=== PATIENT | male | born 1985 | race Two or more races ===

== ENCOUNTER 2024-09-14 16:52 | Emergency (ER) | payer MEDICAID, SELFPAY ==
[2024-09-14 16:53] VITALS: BMI 26.9
[2024-09-14 17:59] VITALS: BP 146/79; PULSE 89; RESP 18; TEMP 37.9; O2SAT 97
--- NOTE | 2024-09-14 18:00 | PD.EDRME ---
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 A comprehensive ED assessment and evaluation of the patient, analysis of all test results, and completion of the medical decision making process will be conducted by additional ED providers. Chief Complaint: Chest Pain Time Seen by Provider: 09/14/24 17:12 Vital signs: Vital Signs Temperature 100.2 F 09/14/24 17:59 Pulse Rate 89 09/14/24 17:59 Respiratory Rate 18 09/14/24 17:59 Blood Pressure 146/79 H 09/14/24 17:59 Pulse Oximetry (%) 97 09/14/24 17:59 Oxygen Delivery Method Room Air 09/14/24 17:59 Vital signs reviewed by provider: Yes
--- NOTE | 2024-09-14 18:12 | EKG_ITS ---
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
--- NOTE | 2024-09-14 18:13 | XR_ITS ---
Examination: PA lateral chest 2 views Technique: Upright PA lateral chest 2 views Exam date and time: September 14, 2024 1821 hrs. Comparison April 10, 2024 Indications: Chest pain today. Findings: Mild enlargement cardiac contour Mild vascular congestion Mild opacity left base obscuring detail left hemidiaphragm Right lung clear Impression: Left base pneumonia
--- NOTE | 2024-09-14 18:13 | PD.EDRME ---
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 A comprehensive ED assessment and evaluation of the patient, analysis of all test results, and completion of the medical decision making process will be conducted by additional ED providers. Chief Complaint: Chest Pain Time Seen by Provider: 09/14/24 17:12 Vital signs: Vital Signs Temperature 100.2 F 09/14/24 17:59 Pulse Rate 89 09/14/24 17:59 Respiratory Rate 18 09/14/24 17:59 Blood Pressure 146/79 H 09/14/24 17:59 Pulse Oximetry (%) 97 09/14/24 17:59 Oxygen Delivery Method Room Air 09/14/24 17:59 RME Narrative: 09/14/24 16:52 39-year-old male with a history of type 2 diabetes on dialysis presents to the emergency room with a chief complaint of 8 out of 10 sternal chest pain x 2 days I have greeted and performed a focused initial assessment of this patient. A comprehensive ED assessment and evaluation of the patient, analysis of all test results, and completion of the medical decision making process will be conducted by additional ED providers.
[2024-09-14 19:31] LABS: Basophils # (Auto) 0.1 Thou/mm3 (0.0-0.2); Basophils % (Auto) 1 % (0-2.5); Eosinophils # (Auto) 0.1 Thou/mm3 (0.0-0.5); Eosinophils % (Auto) 1 % (0-10); Hemoglobin 11.3 g/dL (13.5-16.0); Immature Granulocytes % (Auto) 0 % (0-0); Immature Granulocytes Auto 0.04 Thou/mm3 (0.00-0.00); Lymphocytes # (Auto) 1.8 Thou/mm3 (1.0-4.8); Lymphocytes % (Auto) 17 % (10-50); Mean Corpuscular HGB Conc 34.2 g/dl (31.0-37.0); Mean Corpuscular Hemoglobin 28.3 pg (25.0-35.0); Mean Corpuscular Volume 83 fL (80-100); Monocytes % (Auto) 9 % (0-12); Neutrophils # (Auto) 7.8 Thou/mm3 (1.8-7.7); Neutrophils % (Auto) 72 % (37-80); Nucleated Red Blood Cell % 0 /100 WBC (0); Platelet Count 329 Thou/mm3 (140-440); RDW Standard Deviation 41.6 fL (35.1-43.9); Red Blood Count 3.99 Miln/mm3 (4.50-5.90); White Blood Count 10.8 Thou/mm3 (3.8-10.6)
[2024-09-14 19:33] LABS: Beta Hydroxybutyrate 0.6 mmol/L (<0.6)
[2024-09-14 19:53] LABS: Alanine Aminotransferase 8 U/L (10-49); Albumin, Serum 4.6 gm/dL (3.5-5.0); Albumin/Globulin Ratio 1.2 (1.2-2.2); Alkaline Phosphatase 119 U/L (46-116); Anion Gap 11 (7-16); Aspartate Amino Transferase 14 U/L (0-34); BUN/Creatinine Ratio 4 Ratio (12-20); Blood Urea Nitrogen 19 mg/dL (9-23); Calcium 9.5 mg/dL (8.3-10.6); Calcium (Corrected) 9.5 mg/dL (8.5-10.1); Carbon Dioxide 30.4 mMol/L (20.0-31.0); Chloride 95 mMol/L (98-107); Creatinine (Component) 4.9 mg/dL (0.6-1.3); Estimated Creatinine Clearance 18.4 mL/min (>60); Globulin 3.8 gm/dL (2.3-3.5); Glucose 196 mg/dL (74-106); Osmolality,Calculated 279 (275-295); Potassium 4.3 mMol/L (3.4-5.1); Sodium 136 mMol/L (136-145); Total Protein 8.4 gm/dL (5.7-8.2); Troponin I 0.021 ng/mL (0.0-0.045); eGFR 15 See Note
[2024-09-14] MEDS: MG HYD/AL HYD/SIME (Maalox Reg) SUSP 30 ML UDC PO (20:58)
[2024-09-14] MEDS: LIDOCAINE VISCOUS 2% 15 ML UDC PO (20:58)
[2024-09-14] MEDS: SUCRALFATE SUSP 1 GM/10 ML UDC PO (20:58)
--- NOTE | 2024-09-14 21:20 | PD.EDCHEST ---
ED Chest Pain RME/HPI General Chief Complaint: Chest Pain Stated Complaint: Chest pain, esophagus burning since yesterday Time Seen by Provider: 09/14/24 17:12 Arrival date/time: 09/14/24 16:52 RME / HPI RME / HPI narrative: 09/14/24 16:52 39-year-old male with a history of type 2 diabetes on dialysis presents to the emergency room with a chief complaint of 8 out of 10 sternal chest pain x 2 days I have greeted and performed a focused initial assessment of this patient. A comprehensive ED assessment and evaluation of the patient, analysis of all test results, and completion of the medical decision making process will be conducted by additional ED providers. DR BLANCHARD MAIN ED EVALUATION: 39 yo male patient c/o epigastric and substernal chest pain described as burning for 2 days. Did not try any medication. Has taken Tums occasionally in the past. Denies nausea, vomiting. No SOB. Related Data Home Medications ?Medication ?Instructions ?Recorded ?Confirmed insulin glargine 100 unit/mL (3 60 unit subcut QAM 08/12/23 04/15/24 mL) subcutaneous pen (Basaglar KwikPen U-100 Insulin) calcium acetate 667 mg tablet 667 mg PO TID 10/10/23 04/15/24 insulin glargine 100 unit/mL (3 40 unit subcut HS PRN Hyperglycemia 12/24/23 04/15/24 mL) subcutaneous pen (Basaglar KwikPen U-100 Insulin) labetalol 200 mg tablet 200 mg PO BID 12/24/23 04/15/24 nifedipine 30 mg tablet,extended 30 mg PO HS 12/24/23 04/15/24 release 24 hr vitamin B complex-vitamin C-folic 1 tab PO QDAY 12/24/23 04/15/24 acid 0.8 mg tablet (Yuliana-Ethel) Allergies Allergy/AdvReac Type Severity Reaction Status Date / Time No Known Allergies Allergy Verified 04/10/24 15:54 Review of Systems Review of Systems Systems Reviewed: All systems reviewed, normal except as documented ED Exam Narrative Physical exam: GENERAL APPEARANCE: alert and oriented x 4, well-developed, well-nourished, no acute distress HEENT: Normocephalic, atraumatic; pupils equal, round, reactive to light; EOMI; mucous membranes pink, moist; oropharynx clear NECK: Supple LUNGS: CTABL; no wheezes, no rales, no rhonchi HEART: Regular rate, regular rhythm; normal S1, S2; no murmurs ABDOMEN: non distended; normal BS; soft, no tenderness, no guarding, no rebound; no masses, no organomegaly, no hernia BACK: no CVA tenderness EXTREMITIES: atraumatic; no edema NEUROLOGIC: awake; alert and oriented x4; cranial nerves II-XII grossly intact; no focal sensory or motor deficits PSYCHIATRIC: appropriate mood and affect SKIN: warm, dry, normal color; no rashes Course Quality Measures none Orders Category Date Time Status EKG (ED ONLY) *Do not use* NOW Care 09/14/24 18:12 Completed EKG (ED Only) Stat Exams 09/14/24 18:12 Draft XR chest 2V Stat Exams 09/14/24 18:13 Taken Beta Hydroxybutyrate Stat Lab 09/14/24 19:01 Completed CBC Stat Lab 09/14/24 19:01 Completed CMP [Comprehensive Metabolic Panel] Stat Lab 09/14/24 19:01 Completed Troponin I Stat Lab 09/14/24 19:01 Completed Lidocaine 2% Viscous [Xylocaine 2% Viscous] Med 09/14/24 20:01 Discontinued 15 ml PO X1 ONE Sucralfate Susp [Carafate Susp] Med 09/14/24 20:01 Discontinued 1 gm PO X1 ONE mg Hyd/Al Hyd/Mirian Susp [Maalox Susp] Med 09/14/24 20:01 Discontinued 30 ml PO X1 ONE Vital Signs Vital signs: Vital Signs Temperature 100.2 F 09/14/24 17:59 Pulse Rate 89 09/14/24 17:59 Respiratory Rate 18 09/14/24 17:59 Blood Pressure 146/79 H 09/14/24 17:59 Pulse Oximetry (%) 97 09/14/24 17:59 Oxygen Delivery Method Room Air 09/14/24 17:59 Chest Pain Patient data External records reviewed:: [facility] previous records Clinical information provided by:: patient Social determinants that could affect healthcare access:: none Patient has the following chronic illnesses:: DM, ESRD on HD How is presenting disease/condition affected by chronic disease/condition?: uneffected by Evaluation data The following diagnostics were reviewed and interpreted by me:: lab results, radiology exam(s) and EKG tracing(s) Lab and/or radiology exams considered but not ordered:: none Interpretation Summary: elevated Cr consistent with ESRD. No hyperkalemia Medications / Prescriptions Medications or Prescriptions considered but not ordered:: considered prescription for omeprazole Medication administrations:: Medication Administration History Discontinued Medications Al Hydrox/Mg Hydrox/Simethicone (Mg Hyd/Al Hyd/Mirian (Maalox Reg) Susp 30 Ml Udc) 30 ml PO X1 ONE Stop: 09/14/24 20:02 Last Admin: 09/14/24 20:58 Dose: 30 ml Documented By: KARIS Lidocaine HCl (Lidocaine Viscous 2% 15 Ml Udc) 15 ml PO X1 ONE Stop: 09/14/24 20:02 Last Admin: 09/14/24 20:58 Dose: 15 ml Documented By: AC Sucralfate (Sucralfate Susp 1 Gm/10 Ml Udc) 1 gm PO X1 ONE Stop: 09/14/24 20:02 Last Admin: 09/14/24 20:58 Dose: 1 gm Documented By: KARIS as above Consultations Consultation(s) initiated? (list below): No Diagnosis Chest Pain Differential Diagnosis: pneumothorax, stable angina, unstable angina pectoris, atypical chest pain and other (GERD) Most likely diagnosis given after review of the tests above:: acid reflux Admission Indicated Admission indicated?: not indicated Admission Request Was there a request for admission?: No Disposition Plan Disposition Plan: Discharge Discharge Attestation Discharge Attestation: The patient and all family members were given an opportunity to ask questions and understood the discharge instructions. Discharge instructions specifically effects, indications for sooner follow up or return to the emergency department, and the expected course of current diagnosis. Patient condition: Stable Discharge Plan Plan Patient Disposition: HOME (Self Care) Prescriptions/Referrals Prescriptions/Med Rec: No Action insulin glargine [Basaglar KwikPen U-100 Insulin] 100 unit/mL (3 mL) insulin pen 60 unit SUBCUT QAM Patient Comments: INJECT 60 UNITS SUBCUTANEOUSLY TWICE A DAY Rx Instructions: per patient takes 30-50units BID depending on his sugar levels calcium acetate 667 mg Tablet 667 mg PO TID nifedipine 30 mg tablet extended release 24hr 30 mg PO HS Patient Comments: TAKE 2 TABLETS BY MOUTH EVERY DAY labetalol 200 mg tablet 200 mg PO BID Yuliana-Ethel 0.8 mg tablet 1 tab PO QDAY Patient Comments: TAKE 1 TABLET BY MOUTH EVERY DAY insulin glargine [Basaglar KwikPen U-100 Insulin] 100 unit/mL (3 mL) Insulin Pen 40 unit SUBCUT HS PRN (Reason: Hyperglycemia) Referrals: No Primary/Family,Physician [Primary Care Provider] - In 1 week Problem List Clinical Impression: Acid reflux Patient/Caregiver Discharge Instructions Education Materials: Tips to Control Acid Reflux Print Language: Chilean Stand Alone Forms: Zaira Award Info., Patient Portal Info Letter
== END 2024-09-14 21:59 | disposition home or self-care (01) ==
PROVIDERS: Physician Assistant; Emergency Provider Emergency Medicine
DX: K21.9 Gastro-esophageal reflux disease without esophagitis (principal); E11.22 Type 2 diabetes mellitus with diabetic chronic kidney disease; N18.6 End stage renal disease; Z99.2 Dependence on renal dialysis
CPT/HCPCS: 36415; 71046; 80053; 82010; 84484; 85025; 93005; 99283; J3490; A9270

== ENCOUNTER 2024-09-21 16:25 | Emergency (ER) | payer MEDICAID, SELFPAY ==
[2024-09-21] VITALS (7 sets, daily range): BP systolic 101–104; BP diastolic 63–66; PULSE 67–84; RESP 18; TEMP 36.3–39.3; O2SAT 95–99
--- NOTE | 2024-09-21 16:54 | XR_ITS ---
Examination: PA lateral chest 2 views Technique: Upright PA lateral chest 2 views Exam date and time: September 21, 2024 1635 hrs. Comparison September 14, 2024 Indications: Coughing fever shortness of breath beginning 3 days ago Findings: Normal heart size Lungs are clear. Osseous structures are intact Impression: No active disease
--- NOTE | 2024-09-21 16:55 | PD.EDRME ---
Rapid Medical Screening Exam [facility] Arrival date/time: 09/21/24 16:25 39-year-old male with a history of uncontrolled type 2 diabetes, hypertension, presents to the emergency room with a chief complaint of fevers, a diabetic ulcer to the bottom of his left foot x 1 week, shortness of breath, coughing x 3 days I have greeted and performed a focused initial assessment of this patient. A comprehensive ED assessment and evaluation of the patient, analysis of all test results, and completion of the medical decision making process will be conducted by additional ED providers. Chief Complaint: Shortness of Breath/Dyspnea Time Seen by Provider: 09/21/24 16:37 Vital signs: Vital Signs Temperature 102.7 F H 09/21/24 16:44 Pulse Rate 84 09/21/24 16:44 Respiratory Rate 18 09/21/24 16:44 Blood Pressure 101/64 09/21/24 16:44 Pulse Oximetry (%) 95 09/21/24 16:44 Oxygen Delivery Method Room Air 09/21/24 16:44 Vital signs reviewed by provider: Yes
[2024-09-21] MEDS: ACETAMINOPHEN 500 MG TABLET 1000 MG PO (17:26)
[2024-09-21] MEDS: IBUPROFEN TAB 600 MG TABLET PO (17:27)
[2024-09-21 17:50] LABS: Lactate (Lactic Acid) 1.6 mMol/L (0.4-2.0)
[2024-09-21 17:53] LABS: Basophils # (Auto) 0.1 Thou/mm3 (0.0-0.2); Basophils % (Auto) 1 % (0-2.5); Eosinophils # (Auto) 0.2 Thou/mm3 (0.0-0.5); Eosinophils % (Auto) 2 % (0-10); Hematocrit 32.1 % (41.0-53.0); Hemoglobin 10.9 g/dL (13.5-16.0); Immature Granulocytes % (Auto) 0 % (0-0); Immature Granulocytes Auto 0.04 Thou/mm3 (0.00-0.00); Lymphocytes # (Auto) 1.2 Thou/mm3 (1.0-4.8); Lymphocytes % (Auto) 9 % (10-50); Mean Corpuscular Hemoglobin 27.7 pg (25.0-35.0); Mean Corpuscular Volume 82 fL (80-100); Monocytes # (Auto) 1.2 Thou/mm3 (0.0-0.8); Monocytes % (Auto) 8 % (0-12); Neutrophils # (Auto) 11.3 Thou/mm3 (1.8-7.7); Neutrophils % (Auto) 80 % (37-80); Nucleated Red Blood Cell % 0 /100 WBC (0); Platelet Count 413 Thou/mm3 (140-440); Red Blood Count 3.93 Miln/mm3 (4.50-5.90); White Blood Count 14.1 Thou/mm3 (3.8-10.6)
[2024-09-21 18:50] LABS: Alanine Aminotransferase 8 U/L (10-49); Albumin, Serum 4.6 gm/dL (3.5-5.0); Albumin/Globulin Ratio 1.1 (1.2-2.2); Alkaline Phosphatase 123 U/L (46-116); Anion Gap 14 (7-16); Aspartate Amino Transferase 14 U/L (0-34); BUN/Creatinine Ratio 4 Ratio (12-20); Bilirubin,Total 1.2 mg/dL (0.3-1.2); Blood Urea Nitrogen 19 mg/dL (9-23); Calcium 9.5 mg/dL (8.3-10.6); Calcium (Corrected) 9.5 mg/dL (8.5-10.1); Carbon Dioxide 29.3 mMol/L (20.0-31.0); Chloride 90 mMol/L (98-107); Creatinine (Component) 5.1 mg/dL (0.6-1.3); Globulin 4.1 gm/dL (2.3-3.5); Glucose 204 mg/dL (74-106); Osmolality,Calculated 274 (275-295); Potassium 3.7 mMol/L (3.4-5.1); Procalcitonin 0.55 ng/ml (0.0-0.49); Sodium 133 mMol/L (136-145); Total Protein 8.7 gm/dL (5.7-8.2); eGFR 14 See Note
[2024-09-22 04:26] VITALS: BP 151/82; PULSE 75; RESP 13; TEMP 36.8; O2SAT 100
--- NOTE | 2024-09-22 04:33 | PD.EDSOB ---
ED SOB =RME/HPI General Chief Complaint: Shortness of Breath/Dyspnea Stated Complaint: CHEST HURTING UP TO NECK W/ BREATHING, COUGH Time Seen by Provider: 09/21/24 16:37 Arrival date/time: 09/21/24 16:25 RME / HPI RME / HPI Narrative: 09/21/24 16:25 39-year-old male with a history of uncontrolled type 2 diabetes, hypertension, presents to the emergency room with a chief complaint of fevers, a diabetic ulcer to the bottom of his left foot x 1 week, shortness of breath, coughing x 3 days I have greeted and performed a focused initial assessment of this patient. A comprehensive ED assessment and evaluation of the patient, analysis of all test results, and completion of the medical decision making process will be conducted by additional ED providers. Dr. Rodriges?s Main ED Evaluation: 39yo male with a history of DM, HTN, renal disease presents to the ED for complaints of cough and shortness of breath. Patient states he started developing a wound to his left foot 1 week ago, and another to his right ankle yesterday. He states he started having cold sweats over the last 2 nights, along with a cough, shortness of breath, chest heaviness, and generalized weakness. He denies any N/V/D or any other associated symptoms. No known allergies. Related Data Home Medications ?Medication ?Instructions ?Recorded ?Confirmed insulin glargine 100 unit/mL (3 60 unit subcut QAM 08/12/23 04/15/24 mL) subcutaneous pen (Basaglar KwikPen U-100 Insulin) calcium acetate 667 mg tablet 667 mg PO TID 10/10/23 04/15/24 insulin glargine 100 unit/mL (3 40 unit subcut HS PRN Hyperglycemia 12/24/23 04/15/24 mL) subcutaneous pen (Basaglar KwikPen U-100 Insulin) labetalol 200 mg tablet 200 mg PO BID 12/24/23 04/15/24 nifedipine 30 mg tablet,extended 30 mg PO HS 12/24/23 04/15/24 release 24 hr vitamin B complex-vitamin C-folic 1 tab PO QDAY 12/24/23 04/15/24 acid 0.8 mg tablet (Yuliana-Ethel) Allergies Allergy/AdvReac Type Severity Reaction Status Date / Time No Known Allergies Allergy Verified 09/21/24 16:29 Review of Systems Review of Systems Systems Reviewed: All systems reviewed, normal except as documented Past Medical History Past Medical History NEUROLOGIC: Negative Neurological Disorders or Seizures CARDIAC: Positive Hypertension; Negative Cardiac Disorders or Congestive Heart Failure RESPIRATORY: Negative Chronic Obstructive Pulmonary Disease (COPD) or Asthma GASTROINTESTINAL: Positive Hiatal Hernia and Gastroesophageal Reflux Disease; Negative Gastrointestinal Disorders, Hepatitis, Gall Bladder Disease, Gastrointestinal Bleed or Esophageal Varices GENITOURINARY: Positive Renal Disease and Dialysis MUSCULOSKELETAL: Negative Musculoskeletal Disorders or Fractures ENT: Positive Blind; Negative Cataracts, Ear Infection or Deafness ENDOCRINE: Positive Endocrine Disorders, Diabetes Mellitus Type 2 and Hyperthyroidism; Negative Diabetes Mellitus Type 1 HEMATOLOGIC: Negative Blood Disorders or Sickle Cell Disease PSYCHO/SOCIAL: Negative Schizophrenia OTHER HISTORY: Positive Falls, Blood Transfusions, MRSA and Chicken Pox; Negative Autoimmune Disease, Blood Transfusion Reaction, Anesthesia Reactions or Cancer Family History FAMILY HISTORY: Negative Family Cardiac Disorders or Family Anesthesia Reaction Surgical History SURGICAL: Positive Eye Surgery and Abdominal Surgery; Negative Cardiac Surgery, Nephrectomy or Joint Replacement Social History SMOKING STATUS: Never smoker SUBSTANCE USE: marijuana ED Exam Narrative Physical exam: GENERAL APPEARANCE: alert and oriented x 4, well-developed, well-nourished, no acute distress VITALS: All vitals were reviewed and the pulse ox is 100% on room air, which is normal according to my interpretation. HEENT: Normocephalic, atraumatic; pupils equal, round, reactive to light; EOMI; mucous membranes pink, moist; oropharynx clear NECK: Supple LUNGS: CTABL; no wheezes, no rales, no rhonchi HEART: Regular rate, regular rhythm; normal S1, S2; no murmurs ABDOMEN: non distended; normal BS; soft, no tenderness, no guarding, no rebound; no masses, no organomegaly, no hernia BACK: no CVA tenderness EXTREMITIES: atraumatic; no edema NEUROLOGIC: awake; alert and oriented x4; cranial nerves II-XII grossly intact; no focal sensory or motor deficits PSYCHIATRIC: appropriate mood and affect SKIN: warm, dry, normal color; 3cm denuded blister to the anterior right steward without any surrounding erythema, swelling or discharge; left open wound to the distal sole of the foot that is granulating well without any surrounding erythema, swelling or discharge Course Course Course Narrative: CXR is ordered for determining the etiology of fever. Quality Measures none Orders Category Date Time Status Bedside COVID-19 Antigen Test NOW Care 09/21/24 16:54 Active Bedside Influenza A&B Antigen Test NOW Care 09/21/24 16:54 Completed XR chest 2V Stat Exams 09/21/24 16:54 Completed Blood Culture (Lab) Stat Lab 09/21/24 17:27 Received CBC Stat Lab 09/21/24 17:27 Completed CMP [Comprehensive Metabolic Panel] Stat Lab 09/21/24 17:27 Completed Lactate (Lactic Acid) Stat Lab 09/21/24 17:27 Completed Procalcitonin Stat Lab 09/21/24 17:27 Completed UA [Urinalysis] Stat Lab 09/21/24 16:54 Ordered Urine Culture Stat Lab 09/21/24 16:54 Ordered Acetaminophen Tab [Tylenol ES Tab] Med 09/21/24 16:55 Discontinued 1,000 mg PO X1 ONE Ibuprofen Tab [Motrin Tab] Med 09/21/24 16:55 Discontinued 600 mg PO X1 ONE Vital Signs Vital signs: Vital Signs Temperature 102.7 F H 09/21/24 16:44 Pulse Rate 84 09/21/24 16:44 Respiratory Rate 18 09/21/24 16:44 Blood Pressure 101/64 09/21/24 16:44 Pulse Oximetry (%) 95 09/21/24 16:44 Oxygen Delivery Method Room Air 09/21/24 16:44 Shortness of Breath / Dyspnea MDM Narrative MDM Narrative:: Scribe Attestation: 09/22/24 - Gabby Mathew am scribing for and in the presence of Dr. Rodriges. Patient data External records reviewed:: [facility] previous records (Per chart review, patient was seen here on 09/14/24 for acid reflux.) Clinical information provided by:: patient Social determinants that could affect healthcare access:: none Patient has the following chronic illnesses:: HTN, DM, renal disease How is presenting disease/condition affected by chronic disease/condition?: uneffected by Evaluation data The following diagnostics were reviewed and interpreted by me:: lab results and radiology exam(s) Lab and/or radiology exams considered but not ordered:: none Interpretation Summary: WBC count is elevated at 14.1, HnH is 10.9/32.1, Platelets are normal, Sodium is 133, Creatinine is 5.1 (which is chronic), Glucose is 204, Lactic Acid is normal, Procalcitonin is slightly elevated at 0.55, Bedside COVID and Influenza are negative, according to my interpretation. ------ [place] [facility] Report Signed Patient: NORM BRUNER. Record#: [id number] Birthdate: 1985 Age/Sex: 39 / M [facility] Att[facility] Dr: Ordering Physician: Vladimir Morgan Date of Service: 09/21/24 Procedure(s): XR chest 2V Accession Number(s): [id number] cc: Vladimir Morgan; Marty Nielson MD; NO PRIMARY/FAMILY,PHYSICIAN~ Examination: PA lateral chest 2 views Technique: Upright PA lateral chest 2 views Exam date and time: September 21, 2024 1635 hrs. Comparison September 14, 2024 Indications: Coughing fever shortness of breath beginning 3 days ago Findings: Normal heart size Lungs are clear. Osseous structures are intact Impression: No active disease Dictated By: Marty Nielson MD Signed By: <Electronically signed by Marty Nielson MD in OV> 09/21/24 1807 Medications / Prescriptions Medications or Prescriptions considered but not ordered:: none Medication administrations:: Medication Administration History Discontinued Medications Acetaminophen (Acetaminophen 500 Mg Tablet) 1,000 mg PO X1 ONE Stop: 09/21/24 16:56 Last Admin: 09/21/24 17:26 Dose: 1,000 mg Documented By: APPLE Ibuprofen (Ibuprofen Tab 600 Mg Tablet) 600 mg PO X1 ONE Stop: 09/21/24 16:56 Last Admin: 09/21/24 17:27 Dose: 600 mg Documented By: APPLE see above Consultations Consultation(s) initiated? (list below): No Diagnosis Shortness of Breath Differential Diagnosis: community acquired pneumonia and other (COVID, Influenza, URI, viral syndrome, diabetic foot ulcer, osteomyelitis) Most likely diagnosis given after review of the tests above:: see clinical impression below Admission Indicated Admission indicated?: not indicated Admission Request Was there a request for admission?: No Disposition Plan Disposition Plan: Discharge Discharge Attestation Discharge Attestation: The patient and all family members were given an opportunity to ask questions and understood the discharge instructions. Discharge instructions specifically effects, indications for sooner follow up or return to the emergency department, and the expected course of current diagnosis. Patient condition: Stable Discharge Plan Plan Patient Disposition: HOME (Self Care) Disposition Comment: Stable for discharge home Patient condition on transfer: Stable Prescriptions/Referrals Prescriptions/Med Rec: No Action insulin glargine [Basaglar KwikPen U-100 Insulin] 100 unit/mL (3 mL) insulin pen 60 unit SUBCUT QAM Patient Comments: INJECT 60 UNITS SUBCUTANEOUSLY TWICE A DAY Rx Instructions: per patient takes 30-50units BID depending on his sugar levels calcium acetate 667 mg Tablet 667 mg PO TID nifedipine 30 mg tablet extended release 24hr 30 mg PO HS Patient Comments: TAKE 2 TABLETS BY MOUTH EVERY DAY labetalol 200 mg tablet 200 mg PO BID Yuliana-Ethel 0.8 mg tablet 1 tab PO QDAY Patient Comments: TAKE 1 TABLET BY MOUTH EVERY DAY insulin glargine [Basaglar KwikPen U-100 Insulin] 100 unit/mL (3 mL) Insulin Pen 40 unit SUBCUT HS PRN (Reason: Hyperglycemia) [facility] - In 1 week Problem List Clinical Impression: Upper respiratory infection, viral, Fever Patient/Caregiver Discharge Instructions Discharge Activity: activity as tolerated Education Materials: ED URI, Viral, No Abx (Adult) Additional Instructions: Please return to the emergency department if you have any worsening or any further medical problems and we will help you. Otherwise you should follow-up with your primary care doctor or [facility] within the next several days. Be sure to change the bandages on your foot wounds at least once a day. Have called in a prescription for mupirocin antibiotic ointment which is waiting for you at your pharmacy. Please use this ointment 3 times per day on each of these wounds. You should call the wound center and make an appointment. You should be seen within the next several days for these foot wounds Print Language: Kiswahili Stand Alone Forms: Zaira Award Info., Patient Portal Info Letter
== END 2024-09-22 05:18 | disposition home or self-care (01) ==
PROVIDERS: Nurse Practitioner Family; Emergency Provider Emergency Medicine
DX: J06.9 Acute upper respiratory infection, unspecified (principal)
CPT/HCPCS: 36415; 71046; 80053; 81001; 83605; 84145; 85025; 87040; 87086; 87400; 87811; 99283; A9270

== ENCOUNTER 2025-02-17 02:05 | Emergency (ER) | payer MEDICAID, SELFPAY ==
[2025-02-17] VITALS (8 sets, daily range): BP systolic 154–193; BP diastolic 81–98; PULSE 67–79; RESP 15–18; TEMP 36.6–37.1; O2SAT 97–100; BMI 28.4
--- NOTE | 2025-02-17 02:16 | XR_ITS ---
Examination: AP chest single view Technique one AP portable upright chest single view Date and time: February 17, 2025 0239 hours Comparison September 21, 2024 INDICATIONS: Shortness of breath today. FINDINGS: Minimal opacity left base Mild prominence cardiac contour Right lung clear Intact osseous structures IMPRESSION: Suspicious for early pneumonia left base
--- NOTE | 2025-02-17 02:27 | PD.EDADULT ---
ED General RME/HPI General Chief complaint: Chest Pain Stated complaint: CHEST PAIN Time Seen by Provider: 02/17/25 02:15 Arrival date/time: 02/17/25 02:05 RME / HPI RME / HPI narrative: 39-year-old male with past medical history of diabetes, ESRD, near blindness, and hypertension comes into the ED brought in by ambulance due to chest pain today. Patient states that after hemodialysis he started having this pressure-like chest pain which started in his epigastric region and radiated to his substernal chest and he felt all his body was numb. Patient stated that he was also short of breath at this time and that he had been having high blood pressure for the past week as well. Stated that his blood pressure in the hemodialysis center was around 200s. Patient states that for the past few days he has also had this on and off chest pain and it can last for minutes to the whole day and rest does not make it better and exercise does not worsen it. Patient did get Nitropaste, sublingual nitro, and aspirin en route by EMS and he stated that he had relief of his symptoms. Patient also stated that today when he started having the chest pain he was passing out and waking up shortly after. Also felt dizzy, but denied having any abdominal pain, diarrhea, or headaches. Patient does not make urine. Otherwise no other complaints at this time. Denies any smoking, drugs, alcohol Related Data Home Medications ?Medication ?Instructions ?Recorded ?Confirmed insulin glargine 100 unit/mL (3 60 unit subcut QAM 08/12/23 04/15/24 mL) subcutaneous pen (Basaglar KwikPen U-100 Insulin) calcium acetate 667 mg tablet 667 mg PO TID 10/10/23 04/15/24 insulin glargine 100 unit/mL (3 40 unit subcut HS PRN Hyperglycemia 12/24/23 04/15/24 mL) subcutaneous pen (Basaglar KwikPen U-100 Insulin) labetalol 200 mg tablet 200 mg PO BID 12/24/23 04/15/24 nifedipine 30 mg tablet,extended 30 mg PO HS 12/24/23 04/15/24 release 24 hr vitamin B complex-vitamin C-folic 1 tab PO QDAY 12/24/23 04/15/24 acid 0.8 mg tablet (Yuliana-Ethel) Previous Rx's ?Medication ?Instructions ?Recorded mupirocin 2 % topical ointment 1 applic topical BID On the foot 09/22/24 and ankle wound #22 grams clonidine HCl 0.2 mg tablet 0.2 mg PO BID PRN Blood pressure 02/17/25 above 170/100 #10 tabs Allergies Allergy/AdvReac Type Severity Reaction Status Date / Time No Known Allergies Allergy Verified 09/21/24 16:29 Review of Systems Review of Systems Systems Reviewed: All systems reviewed, normal except as documented Past Medical History Past Medical History NEUROLOGIC: Negative Neurological Disorders or Seizures CARDIAC: Positive Hypertension; Negative Cardiac Disorders or Congestive Heart Failure RESPIRATORY: Negative Chronic Obstructive Pulmonary Disease (COPD) or Asthma GASTROINTESTINAL: Positive Hiatal Hernia and Gastroesophageal Reflux Disease; Negative Gastrointestinal Disorders, Hepatitis, Gall Bladder Disease, Gastrointestinal Bleed or Esophageal Varices GENITOURINARY: Positive Renal Disease and Dialysis MUSCULOSKELETAL: Negative Musculoskeletal Disorders or Fractures ENT: Positive Blind; Negative Cataracts, Ear Infection or Deafness ENDOCRINE: Positive Endocrine Disorders, Diabetes Mellitus Type 2 and Hyperthyroidism; Negative Diabetes Mellitus Type 1 HEMATOLOGIC: Negative Blood Disorders or Sickle Cell Disease PSYCHO/SOCIAL: Negative Schizophrenia OTHER HISTORY: Positive Falls, Blood Transfusions, MRSA and Chicken Pox; Negative Autoimmune Disease, Blood Transfusion Reaction, Anesthesia Reactions or Cancer Family History FAMILY HISTORY: Negative Family Cardiac Disorders or Family Anesthesia Reaction Surgical History SURGICAL: Positive Eye Surgery and Abdominal Surgery; Negative Cardiac Surgery, Nephrectomy or Joint Replacement Social History SMOKING STATUS: Never smoker SUBSTANCE USE: marijuana ED Exam Narrative Physical exam: Gen: A&O X 3, NAD HEENT: NCAT, EOMI, Pupils reactive MARCIANO, not icteric. External ears normal. No rhinorrhea. Moist mucous membranes. See shadows from both eyes. Neck: Supple, full range of motion, no observable masses, No meningeal sign. Lungs: No Respiratory distress, clear bilateral. CV: RRR, no murmurs. Abdomen: Soft, nondistended, nontender, no rebound tenderness. MSK: No joint swelling, no redness, peripheral pulses presents, lumbar with no edema. Skin: No rashes, petechiae, lesions.. Neuro: No focal neurological deficits appreciated, sensory and motor intact. Psych: Cooperative, appropriate mood and effect. 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 START 00 Care 02/17/25 02:16 Active Continuous Pulse Oximetry NOW Care 02/17/25 02:16 Completed CXRP [XR chest 1V portable] Stat Exams 02/17/25 02:16 Taken Beta Hydroxybutyrate Stat Lab 02/17/25 02:23 Completed CBC [CBC] Stat Lab 02/17/25 02:23 Completed CMP [Comprehensive Metabolic Panel] Stat Lab 02/17/25 02:23 Completed Hemoglobin and Hematocrit Stat Lab 02/17/25 03:50 Completed Lactic Acid [Lactate (Lactic Acid)] Stat Lab 02/17/25 02:23 Completed Magnesium Stat Lab 02/17/25 02:23 Completed Procalcitonin Stat Lab 02/17/25 02:23 Completed Troponin I Stat Lab 02/17/25 02:23 Completed INSULIN LISPRO (AdmeLOG) [HumaLOG] Med 02/17/25 03:50 Discontinued 3 unit SC X1 ONE Insulin Regular Med 02/17/25 02:16 Discontinued 5 unit IV X1 ONE hydrALAZINE INJ [Apresoline Inj] Med 02/17/25 02:40 Discontinued 10 mg IVP X1 ONE Vital Signs Vital signs: Vital Signs Temperature 97.8 F 02/17/25 02:14 Pulse Rate 68 02/17/25 02:14 Respiratory Rate 17 02/17/25 02:14 Blood Pressure 182/98 H 02/17/25 02:14 Pulse Oximetry (%) 97 02/17/25 02:14 Oxygen Delivery Method Room Air 02/17/25 02:14 Discharge Plan Plan Patient Disposition: HOME (Self Care) Prescriptions/Referrals Prescriptions/Med Rec: New clonidine HCl 0.2 mg tablet 0.2 mg PO BID PRN (Reason: Blood pressure above 170/100) Qty: 10 0RF Rx Instructions: Take 1 tablet if blood pressures still elevated in the 170s/100s after you have taken your antihypertensive medications. No Action insulin glargine [Basaglar KwikPen U-100 Insulin] 100 unit/mL (3 mL) insulin pen 60 unit SUBCUT QAM Patient Comments: INJECT 60 UNITS SUBCUTANEOUSLY TWICE A DAY Rx Instructions: per patient takes 30-50units BID depending on his sugar levels calcium acetate 667 mg Tablet 667 mg PO TID nifedipine 30 mg tablet extended release 24hr 30 mg PO HS Patient Comments: TAKE 2 TABLETS BY MOUTH EVERY DAY labetalol 200 mg tablet 200 mg PO BID Yuliana-Ethel 0.8 mg tablet 1 tab PO QDAY Patient Comments: TAKE 1 TABLET BY MOUTH EVERY DAY insulin glargine [Basaglar KwikPen U-100 Insulin] 100 unit/mL (3 mL) Insulin Pen 40 unit SUBCUT HS PRN (Reason: Hyperglycemia) mupirocin 2 % ointment 1 applic topical BID Qty: 22 0RF Referrals: Emeterio Gomez MD [Primary Care Provider] - In 1 week Problem List Clinical Impression: Atypical chest pain Patient/Caregiver Discharge Instructions Other Activity Instructions:: Follow-up primary care physician within 2 to 3 days Prescribe clonidine 0.2 mg twice daily as needed if blood pressure above 170/100 after he had taken your antihypertensive medications Would recommend outpatient follow-up with printed circuit board assembler Would recommend outpatient workup for anemia Come back to the ER if symptoms persist or worsen. Education Materials: ED Chest Pain, Noncardiac Print Language: Ukrainian Stand Alone Forms: Zaira Award Info., Patient Portal Info Letter MDM Narrative MDM hospital course: Patient was seen and assessed by myself upon arrival to the room. Diagnostic labs and imaging were ordered. EKG did not show any acute ST changes. Patient's blood sugar on arrival was in the 500s therefore gave 5 insulin regular IV x 1. And patient's blood pressure was elevated therefore gave hydralazine 10 mg IV x 1 Patient's hemoglobin was 7.4 as compared to 10.9 around 5 months ago. This could be likely due to ESRD. Patient does not have any active signs of bleeding. Otherwise patient is lactic acid was negative and troponins were also negative. Recheck blood sugars and patient's blood sugars were 357, ordered 3 more insulin lispro SC x 1. On repeat blood glucose check blood glucose was 258. At this time patient is stable enough to be discharged home. Will give clonidine 0.2 mg tablets twice daily as needed if blood pressure above 170/100 after he takes his blood pressure medications. With close follow-up with his primary care physician. Case disclosed with Attending Dr. Eugene Bolivar PGY2 Disclaimer: Even though this this note was dictated by speech recognition and even though it was carefully revised there may still be minor errors in special education classroom aide due to voice recognition software. Medication Administration(s) Medication Administration History Discontinued Medications Hydralazine HCl (Hydralazine Inj 20 Mg/Ml Vial) 10 mg IVP X1 ONE Stop: 02/17/25 02:41 Last Admin: 02/17/25 02:50 Dose: 10 mg Documented By: NENA Insulin Human Lispro (Insulin Lispro (Admelog) 1 Unit/0.01 Ml Unit) 3 unit SC X1 ONE Stop: 02/17/25 03:51 Last Admin: 02/17/25 03:56 Dose: 3 unit Documented By: NENA Co-signed By: DL Insulin Human Regular (Insulin Hum Regular 1 Unit/0.01 Ml (Per Unit)) 5 unit IV X1 ONE Stop: 02/17/25 02:17 Last Admin: 02/17/25 02:48 Dose: 5 unit Documented By: NENA Co-signed By: DL
[2025-02-17 02:33] LABS: Lactate (Lactic Acid) 1.2 mMol/L (0.4-2.0)
[2025-02-17 02:41] LABS: Beta Hydroxybutyrate 0.0 mmol/L (<0.6)
[2025-02-17] MEDS: INSULIN HUM REGULAR 1 UNIT/0.01 ML (PER UNIT) 5 UNIT IV (02:48)
[2025-02-17 02:50] LABS: Basophils # (Auto) 0.1 Thou/mm3 (0.0-0.2); Basophils % (Auto) 1 % (0-2.5); Eosinophils # (Auto) 0.1 Thou/mm3 (0.0-0.5); Eosinophils % (Auto) 2 % (0-10); Hematocrit 22.9 % (41.0-53.0); Immature Granulocytes Auto 0.01 Thou/mm3 (0.00-0.00); Lymphocytes # (Auto) 2.1 Thou/mm3 (1.0-4.8); Lymphocytes % (Auto) 42 % (10-50); Mean Corpuscular HGB Conc 32.3 g/dl (31.0-37.0); Mean Corpuscular Hemoglobin 27.1 pg (25.0-35.0); Mean Corpuscular Volume 84 fL (80-100); Monocytes # (Auto) 0.5 Thou/mm3 (0.0-0.8); Monocytes % (Auto) 10 % (0-12); Neutrophils # (Auto) 2.2 Thou/mm3 (1.8-7.7); Neutrophils % (Auto) 45 % (37-80); Nucleated Red Blood Cell # 0.00 Thou/mm3 (0.00-0.00); Nucleated Red Blood Cell % 0 /100 WBC (0); Platelet Count 131 Thou/mm3 (140-440); RDW Standard Deviation 42.2 fL (35.1-43.9); Red Blood Count 2.73 Miln/mm3 (4.50-5.90); White Blood Count 4.9 Thou/mm3 (3.8-10.6)
[2025-02-17] MEDS: hydrALAZINE INJ 20 MG/ML VIAL 10 MG IVP (02:50)
[2025-02-17 03:00] LABS: Hemoglobin 7.4 g/dL (13.5-16.0)
[2025-02-17 03:15] LABS: Alanine Aminotransferase 8 U/L (10-49); Albumin, Serum 3.8 gm/dL (3.5-5.0); Albumin/Globulin Ratio 1.4 (1.2-2.2); Alkaline Phosphatase 186 U/L (46-116); Anion Gap 9 (7-16); Aspartate Amino Transferase 11 U/L (0-34); BUN/Creatinine Ratio 6 Ratio (12-20); Bilirubin,Total 0.4 mg/dL (0.3-1.2); Blood Urea Nitrogen 39 mg/dL (9-23); Calcium 8.0 mg/dL (8.3-10.6); Calcium (Corrected) 8.2 mg/dL (8.5-10.1); Carbon Dioxide 30.1 mMol/L (20.0-31.0); Chloride 92 mMol/L (98-107); Creatinine (Component) 6.3 mg/dL (0.6-1.3); Estimated Creatinine Clearance 15.8 mL/min (>60); Globulin 2.7 gm/dL (2.3-3.5); Magnesium 1.8 mg/dL (1.6-2.6); Osmolality,Calculated 300 (275-295); Potassium 4.4 mMol/L (3.4-5.1); Procalcitonin 0.23 ng/ml (0.0-0.49); Sodium 131 mMol/L (136-145); Total Protein 6.5 gm/dL (5.7-8.2); Troponin I < 0.020 ng/mL (0.0-0.045); eGFR 11 See Note
[2025-02-17 03:34] LABS: Glucose 602 mg/dL (74-106)
[2025-02-17] MEDS: INSULIN LISPRO (AdmeLOG) 1 UNIT/0.01 ML UNIT 3 UNIT SC (03:56)
[2025-02-17 03:58] LABS: Hematocrit 23.1 % (41.0-53.0)
[2025-02-17 04:06] LABS: Hemoglobin 7.7 g/dL (13.5-16.0)
== END 2025-02-17 05:21 | disposition home or self-care (01) ==
PROVIDERS: PCP Internal Medicine
DX: R07.89 Other chest pain (principal); E11.22 Type 2 diabetes mellitus with diabetic chronic kidney disease; I12.0 Hypertensive chronic kidney disease with stage 5 chronic kidney disease or end stage renal disease; N18.6 End stage renal disease
CPT/HCPCS: 36415; 71045; 80053; 80307; 81001; 82010; 83605; 83735; 84145; 84484; 85014; 85018; 85025; 96374; 99284; J0360; J1815

== ENCOUNTER 2025-02-18 00:10 | Emergency (ER) | payer MEDICAID, SELFPAY ==
[2025-02-18 00:12] VITALS: BMI 28.4
[2025-02-18 00:49] VITALS: BP 185/95; PULSE 73; RESP 17; TEMP 36.7; O2SAT 99
--- NOTE | 2025-02-18 01:05 | PD.EDADULT ---
ED General RME/HPI General Chief complaint: General Adult/Misc Complain Stated complaint: HIGH BP, HEADACHE,CP Arrival date/time: 02/18/25 00:10 RME / HPI RME / HPI narrative: 39-year-old male with past medical history of diabetes, ESRD, near blindness, and hypertension comes into the ED today with complaints of high blood pressure at home. Patient states that his blood pressure was 200/100 and that he was unable to get the medication that he was prescribed yesterday when he came to the ED due to similar symptoms. He stated that he also has some mild chest pain and headache, which have since gotten a lot better. Patient is supposed to get hemodialysis later this morning. Patient denies having any abdominal pain, nausea, vomiting, diarrhea, or feelings of dizziness. Related Data Home Medications ?Medication ?Instructions ?Recorded ?Confirmed insulin glargine 100 unit/mL (3 60 unit subcut QAM 08/12/23 04/15/24 mL) subcutaneous pen (Basaglar KwikPen U-100 Insulin) calcium acetate 667 mg tablet 667 mg PO TID 10/10/23 04/15/24 insulin glargine 100 unit/mL (3 40 unit subcut HS PRN Hyperglycemia 12/24/23 04/15/24 mL) subcutaneous pen (Basaglar KwikPen U-100 Insulin) labetalol 200 mg tablet 200 mg PO BID 12/24/23 04/15/24 nifedipine 30 mg tablet,extended 30 mg PO HS 12/24/23 04/15/24 release 24 hr vitamin B complex-vitamin C-folic 1 tab PO QDAY 12/24/23 04/15/24 acid 0.8 mg tablet (Yuliana-Ethel) Previous Rx's ?Medication ?Instructions ?Recorded mupirocin 2 % topical ointment 1 applic topical BID On the foot 09/22/24 and ankle wound #22 grams clonidine HCl 0.2 mg tablet 0.2 mg PO BID PRN Blood pressure 02/17/25 above 170/100 #10 tabs Allergies Allergy/AdvReac Type Severity Reaction Status Date / Time No Known Allergies Allergy Verified 02/18/25 00:11 Review of Systems Review of Systems Systems Reviewed: All systems reviewed, normal except as documented Past Medical History Past Medical History NEUROLOGIC: Negative Neurological Disorders or Seizures CARDIAC: Positive Hypertension; Negative Cardiac Disorders or Congestive Heart Failure RESPIRATORY: Negative Chronic Obstructive Pulmonary Disease (COPD) or Asthma GASTROINTESTINAL: Positive Hiatal Hernia and Gastroesophageal Reflux Disease; Negative Gastrointestinal Disorders, Hepatitis, Gall Bladder Disease, Gastrointestinal Bleed or Esophageal Varices GENITOURINARY: Positive Renal Disease and Dialysis MUSCULOSKELETAL: Negative Musculoskeletal Disorders or Fractures ENT: Positive Blind; Negative Cataracts, Ear Infection or Deafness ENDOCRINE: Positive Endocrine Disorders, Diabetes Mellitus Type 2 and Hyperthyroidism; Negative Diabetes Mellitus Type 1 HEMATOLOGIC: Negative Blood Disorders or Sickle Cell Disease PSYCHO/SOCIAL: Negative Schizophrenia OTHER HISTORY: Positive Falls, Blood Transfusions, MRSA and Chicken Pox; Negative Autoimmune Disease, Blood Transfusion Reaction, Anesthesia Reactions or Cancer Family History FAMILY HISTORY: Negative Family Cardiac Disorders or Family Anesthesia Reaction Surgical History SURGICAL: Positive Eye Surgery and Abdominal Surgery; Negative Cardiac Surgery, Nephrectomy or Joint Replacement Social History SMOKING STATUS: Never smoker SUBSTANCE USE: marijuana ED Exam Narrative Physical exam: Gen: A&O X 3, NAD HEENT: NCAT, EOMI, Pupils reactive MARCIANO, not icteric. External ears normal. No rhinorrhea. Moist mucous membranes. See shadows from both eyes. Neck: Supple, full range of motion, no observable masses, No meningeal sign. Lungs: No Respiratory distress, clear bilateral. CV: RRR, no murmurs. Abdomen: Soft, nondistended, nontender, no rebound tenderness. MSK: No joint swelling, no redness, peripheral pulses presents, lumbar with no edema. Skin: No rashes, petechiae, lesions.. Neuro: No focal neurological deficits appreciated, sensory and motor intact. Psych: Cooperative, appropriate mood and effect. Course Quality Measures none Orders Category Date Time Status EKG (ED ONLY) *Do not use* NOW Care 02/18/25 00:13 Completed EKG (ED Only) Stat Exams 02/18/25 00:13 Ordered Vital Signs Vital signs: Vital Signs Temperature 98.1 F 02/18/25 00:49 Pulse Rate 73 02/18/25 00:49 Respiratory Rate 17 02/18/25 00:49 Blood Pressure 185/95 H 02/18/25 00:49 Pulse Oximetry (%) 99 02/18/25 00:49 Oxygen Delivery Method Room Air 02/18/25 00:49 Discharge Plan Plan Patient Disposition: HOME (Self Care) Prescriptions/Referrals Prescriptions/Med Rec: No Action insulin glargine [Basaglar KwikPen U-100 Insulin] 100 unit/mL (3 mL) insulin pen 60 unit SUBCUT QAM Patient Comments: INJECT 60 UNITS SUBCUTANEOUSLY TWICE A DAY Rx Instructions: per patient takes 30-50units BID depending on his sugar levels calcium acetate 667 mg Tablet 667 mg PO TID nifedipine 30 mg tablet extended release 24hr 30 mg PO HS Patient Comments: TAKE 2 TABLETS BY MOUTH EVERY DAY labetalol 200 mg tablet 200 mg PO BID Yuliana-Ethel 0.8 mg tablet 1 tab PO QDAY Patient Comments: TAKE 1 TABLET BY MOUTH EVERY DAY insulin glargine [Basaglar KwikPen U-100 Insulin] 100 unit/mL (3 mL) Insulin Pen 40 unit SUBCUT HS PRN (Reason: Hyperglycemia) mupirocin 2 % ointment 1 applic topical BID Qty: 22 0RF clonidine HCl 0.2 mg tablet 0.2 mg PO BID PRN (Reason: Blood pressure above 170/100) Qty: 10 0RF Rx Instructions: Take 1 tablet if blood pressures still elevated in the 170s/100s after you have taken your antihypertensive medications. Referrals: No Primary/Family,Physician [Primary Care Provider] - In 1 week Problem List Clinical Impression: Elevated blood pressure reading, Headache Patient/Caregiver Discharge Instructions Other Activity Instructions:: Would recommend to follow-up with primary care physician within 1 to 2 days to adjust your blood pressure medications Will recommend to follow-up with your employee health rn within 2 to 3 days to adjust blood pressure medications or possible extra session of hemodialysis. Come back to the ER if symptoms persist or worsen. Education Materials: Self-Care for Headaches Print Language: Cambodian Stand Alone Forms: Zaira Award Info., Patient Portal Info Letter MDM Narrative MDM hospital course: Patient was seen and evaluated upon arrival by myself. Patient's blood pressure was 180/95. Given the patient is supposed to get hemodialysis later this morning and likely has elevated blood pressure on a daily basis given his history of ESRD will not decrease the blood pressure to minimize possibly a hypotension during hemodialysis. At this time patient is stable enough to be discharged home with close follow-up with employee health rn and his primary care physician. Patient agrees with plan. Case disclosed with Attending Dr. Anoop Bolivar PGY2 Disclaimer: Even though this this note was dictated by speech recognition and even though it was carefully revised there may still be minor errors in grain mill products inspector due to voice recognition software.
== END 2025-02-18 01:21 | disposition home or self-care (01) ==
PROVIDERS: Emergency Provider Emergency Medicine
DX: I12.0 Hypertensive chronic kidney disease with stage 5 chronic kidney disease or end stage renal disease (principal); R51.9 Headache, unspecified; N18.6 End stage renal disease; E11.22 Type 2 diabetes mellitus with diabetic chronic kidney disease
CPT/HCPCS: 93005; 99283

== ENCOUNTER 2025-03-28 17:22 | Emergency (ER) | payer MEDICAID, SELFPAY ==
[2025-03-28 17:23] VITALS: BMI 28.4
[2025-03-28 17:33] VITALS: BP 162/78; PULSE 68; RESP 17; TEMP 37.1; O2SAT 98
--- NOTE | 2025-03-28 17:34 | PD.EDRME ---
Rapid Medical Screening Exam RME Arrival date/time: 03/28/25 17:22 Chief Complaint: General Adult/Misc Complain Time Seen by Provider: 03/28/25 17:34 Vital signs: Vital Signs Temperature 98.7 F 03/28/25 17:33 Pulse Rate 68 03/28/25 17:33 Respiratory Rate 17 03/28/25 17:33 Blood Pressure 162/78 H 03/28/25 17:33 Pulse Oximetry (%) 98 03/28/25 17:33 Oxygen Delivery Method Room Air 03/28/25 17:33 RME Narrative: 40-year-old male with past medical history of diabetes mellitus and end-stage renal disease on hemodialysis since August 2023 (//Sat schedule, followed by Dr. Gomez) presents to the Emergency Department with concern for persistently elevated blood glucose over the past several days. He also reports upper abdominal swelling . He mentioned he has intermittent bilateral flank pain for years . He is partially blind, smokes marijuana occasionally (last use last week), and denies recent travel. Patient still has his gall bladder. Denies fevers chills vomiting. Does endorse nausea today. Patient has chronic bilateral low back pain. No new injuries. No fevers no history of IV drug use. He attended his dialysis session yesterday. No known allergies. Orders made and another provider to follow-up the patient.
--- NOTE | 2025-03-28 17:40 | XR_ITS ---
Examination: Abdomen sonogram, Limited Date and time of exam: March 28, 2025, 1909 hrs. Indications: Right upper abdominal pain and nausea beginning one month ago Technique: Real-time neil scale transabdominal sonographic images of the upper abdomen obtained. Findings: Minimal gallbladder sludge Gallbladder wall is thickened 0.7 cm with edema Common bile duct 0.2 cm Pancreatic head 2.4 cm Liver 20.5 cm fatty infiltration lobular contour, ascites Normal hepatopedal portal venous oh Patent IVC Impression: Gallbladder sludge Gallbladder wall is thickened 0.7 cm with edema however the patient has mild ascites, clinical correlation advised Consider HIDA scan or MRCP follow-up to assess for cholecystitis
[2025-03-28 18:10] LABS: Base Excess, Venous 5 (-3-3); O2 Saturation, Venous 83 % (96-97); PCO2, Venous 44 mmHg (36-56); PO2, Venous 45 mmHg (15-58); pH, Venous 7.44 (7.33-7.66)
[2025-03-28 18:14] LABS: Basophils # (Auto) 0.0 Thou/mm3 (0.0-0.2); Basophils % (Auto) 1 % (0-2.5); Eosinophils # (Auto) 0.1 Thou/mm3 (0.0-0.5); Eosinophils % (Auto) 2 % (0-10); Hematocrit 34.1 % (41.0-53.0); Hemoglobin 11.3 g/dL (13.5-16.0); Immature Granulocytes Auto 0.02 Thou/mm3 (0.00-0.00); Lymphocytes # (Auto) 1.1 Thou/mm3 (1.0-4.8); Lymphocytes % (Auto) 19 % (10-50); Mean Corpuscular HGB Conc 33.1 g/dl (31.0-37.0); Mean Corpuscular Hemoglobin 28.3 pg (25.0-35.0); Mean Corpuscular Volume 86 fL (80-100); Monocytes # (Auto) 0.5 Thou/mm3 (0.0-0.8); Monocytes % (Auto) 8 % (0-12); Neutrophils # (Auto) 4.1 Thou/mm3 (1.8-7.7); Neutrophils % (Auto) 71 % (37-80); Nucleated Red Blood Cell # 0.00 Thou/mm3 (0.00-0.00); Nucleated Red Blood Cell % 0 /100 WBC (0); Platelet Count 199 Thou/mm3 (140-440); RDW Standard Deviation 43.9 fL (35.1-43.9); Red Blood Count 3.99 Miln/mm3 (4.50-5.90); White Blood Count 5.8 Thou/mm3 (3.8-10.6)
[2025-03-28 18:24] LABS: Beta Hydroxybutyrate 0.2 mmol/L (<0.6)
[2025-03-28 18:47] LABS: Alanine Aminotransferase 11 U/L (10-49); Albumin, Serum 4.8 gm/dL (3.5-5.0); Albumin/Globulin Ratio 1.4 (1.2-2.2); Alkaline Phosphatase 211 U/L (46-116); Anion Gap 13 (7-16); Aspartate Amino Transferase 19 U/L (0-34); BUN/Creatinine Ratio 6 Ratio (12-20); Bilirubin,Total 1.0 mg/dL (0.3-1.2); Blood Urea Nitrogen 33 mg/dL (9-23); Calcium 8.8 mg/dL (8.3-10.6); Calcium (Corrected) 8.8 mg/dL (8.5-10.1); Carbon Dioxide 26.4 mMol/L (20.0-31.0); Chloride 88 mMol/L (98-107); Creatinine (Component) 5.6 mg/dL (0.6-1.3); Estimated Creatinine Clearance 17.6 mL/min (>60); Globulin 3.4 gm/dL (2.3-3.5); Osmolality,Calculated 290 (275-295); Potassium 4.2 mMol/L (3.4-5.1); Sodium 127 mMol/L (136-145); Total Protein 8.2 gm/dL (5.7-8.2); eGFR 12 See Note
[2025-03-28 18:54] LABS: Glucose 606 mg/dL (74-106)
--- NOTE | 2025-03-28 19:29 | PD.EDRECHK ---
ED Recheck Abnl Lab Rx-RME/HPI General Chief Complaint: General Adult/Misc Complain Stated Complaint: HIGH BLOOD SUGAR FOR 2 DAYS, VOMITING TODAY Time Seen by Provider: 03/28/25 17:34 Arrival date/time: 03/28/25 17:22 RME / HPI RME / HPI narrative: 40-year-old male with past medical history of diabetes mellitus and end-stage renal disease on hemodialysis since August 2023 (//Sat schedule, followed by Dr. Gomez) presents to the Emergency Department with concern for persistently elevated blood glucose over the past several days. He also reports upper abdominal swelling . He mentioned he has intermittent bilateral flank pain for years . He is partially blind, smokes marijuana occasionally (last use last week), and denies recent travel. Patient still has his gall bladder. Denies fevers chills vomiting. Does endorse nausea today. Patient has chronic bilateral low back pain. No new injuries. No fevers no history of IV drug use. He attended his dialysis session yesterday. No known allergies. Orders made and another provider to follow-up the patient. See MDM for Dr. Augustin's HPI documentation. Related Data Home Medications ?Medication ?Instructions ?Recorded ?Confirmed insulin glargine 100 unit/mL (3 60 unit subcut QAM 08/12/23 04/15/24 mL) subcutaneous pen (Basaglar KwikPen U-100 Insulin) calcium acetate 667 mg tablet 667 mg PO TID 10/10/23 04/15/24 insulin glargine 100 unit/mL (3 40 unit subcut HS PRN Hyperglycemia 12/24/23 04/15/24 mL) subcutaneous pen (Basaglar KwikPen U-100 Insulin) labetalol 200 mg tablet 200 mg PO BID 12/24/23 04/15/24 nifedipine 30 mg tablet,extended 30 mg PO HS 12/24/23 04/15/24 release 24 hr vitamin B complex-vitamin C-folic 1 tab PO QDAY 12/24/23 04/15/24 acid 0.8 mg tablet (Yuliana-Ethel) Previous Rx's ?Medication ?Instructions ?Recorded mupirocin 2 % topical ointment 1 applic topical BID On the foot 09/22/24 and ankle wound #22 grams clonidine HCl 0.2 mg tablet 0.2 mg PO BID PRN Blood pressure 02/17/25 above 170/100 #10 tabs acetaminophen 300 mg-codeine 30 mg 2 tab PO Q8H PRN pain #20 tabs 03/28/25 tablet ondansetron 4 mg disintegrating 4 mg PO TID PRN nausea and 03/28/25 tablet vomiting 30 days #10 tabs Allergies Allergy/AdvReac Type Severity Reaction Status Date / Time No Known Allergies Allergy Verified 03/28/25 17:25 Review of Systems Review of Systems Systems Reviewed: All systems reviewed, normal except as documented Past Medical History Past Medical History NEUROLOGIC: Negative Neurological Disorders or Seizures CARDIAC: Positive Hypertension; Negative Cardiac Disorders or Congestive Heart Failure RESPIRATORY: Negative Chronic Obstructive Pulmonary Disease (COPD) or Asthma GASTROINTESTINAL: Positive Hiatal Hernia and Gastroesophageal Reflux Disease; Negative Gastrointestinal Disorders, Hepatitis, Gall Bladder Disease, Gastrointestinal Bleed or Esophageal Varices GENITOURINARY: Positive Renal Disease and Dialysis MUSCULOSKELETAL: Negative Musculoskeletal Disorders or Fractures ENT: Positive Blind; Negative Cataracts, Ear Infection or Deafness ENDOCRINE: Positive Endocrine Disorders, Diabetes Mellitus Type 2 and Hyperthyroidism; Negative Diabetes Mellitus Type 1 HEMATOLOGIC: Negative Blood Disorders or Sickle Cell Disease PSYCHO/SOCIAL: Negative Schizophrenia OTHER HISTORY: Positive Falls, Blood Transfusions, MRSA and Chicken Pox; Negative Autoimmune Disease, Blood Transfusion Reaction, Anesthesia Reactions or Cancer Family History FAMILY HISTORY: Negative Family Cardiac Disorders or Family Anesthesia Reaction Surgical History SURGICAL: Positive Eye Surgery and Abdominal Surgery; Negative Cardiac Surgery, Nephrectomy or Joint Replacement Social History SMOKING STATUS: Never smoker SUBSTANCE USE: marijuana ED Exam Narrative Physical exam: See [facility] for Dr. Augustin's physical exam documentation. Course Quality Measures none Orders Category Date Time Status Bedside COVID-19 Antigen Test NOW Care 03/28/25 19:33 Completed Bedside Influenza A&B Antigen Test NOW Care 03/28/25 19:33 Completed EKG (ED ONLY) *Do not use* NOW Care 03/28/25 19:37 Completed Saline [Insert IV] NOW Care 03/28/25 19:[address] chest abdomen pelvis wo Stat Exams 03/28/25 19:37 Completed EKG (ED Only) Stat Exams 03/28/25 19:37 Draft US abdomen limited Stat Exams 03/28/25 17:40 Completed XR chest 1V portable Stat Exams 03/28/25 19:37 Completed Amylase Stat Lab 03/28/25 20:24 Completed BNP [B-Type Natriuretic Peptide] Stat Lab 03/28/25 20:24 Completed Beta Hydroxybutyrate Stat Lab 03/28/25 18:00 Completed Bilirubin,Direct Stat Lab 03/28/25 20:24 Completed Blood Culture (Lab) Stat Lab 03/28/25 20:27 Received CBC Stat Lab 03/28/25 18:00 Completed CMP [Comprehensive Metabolic Panel] Stat Lab 03/28/25 18:00 Completed CRP [C-Reactive Protein] Stat Lab 03/28/25 20:24 Completed ESR [Sed Rate (ESR)] Stat Lab 03/28/25 18:00 Completed Lactate (Lactic Acid) Stat Lab 03/28/25 20:24 Completed Magnesium Stat Lab 03/28/25 20:24 Completed Procalcitonin Stat Lab 03/28/25 20:24 Completed TSH [Thyroid Stimulating Hormone] Stat Lab 03/28/25 20:24 Completed Troponin I Stat Lab 03/28/25 20:24 Completed VBG [Venous Blood Gas] Stat Lab 03/28/25 18:00 Completed Insulin Regular Med 03/28/25 19:28 Discontinued 10 unit IV X1 ONE Insulin Regular Med 03/28/25 20:30 Discontinued 10 unit IV X1 ONE Ondansetron Inj [Zofran Inj] Med 03/28/25 19:36 Discontinued 4 mg IVP X1 ONE Sodium Chloride 0.9% 250 ml [Ns] 250 ml Med 03/28/25 19:36 Discontinued IV 100 mls/hr Vital Signs Vital signs: Vital Signs Temperature 98.7 F 03/28/25 17:33 Pulse Rate 68 03/28/25 17:33 Respiratory Rate 17 03/28/25 17:33 Blood Pressure 162/78 H 03/28/25 17:33 Pulse Oximetry (%) 98 03/28/25 17:33 Oxygen Delivery Method Room Air 03/28/25 17:33 Recheck / Abnormal Lab / Rx MDM Narrative MDM Narrative:: This section includes all my notes and documentations, including HPI, PE, and ED course. Hilario Augustin MD HPI: 40yo male with history of ESRD on HD, DM, HTN here with elevated blood sugar levels. Patient has been taking his insulin, but has been unable to get his blood sugar to go down. He has mild upper abdominal discomfort and nausea. He did not eat today due to his blood sugar being high. No vomiting. No other complaints reported. ROS: All negative except as documented in HPI. Physical Exam: General: Alert and oriented. No acute distress when remaining still. Eyes: Conjunctivae and lids clear. ENT: No nasal congestion. Neck: Supple. Heart: RRR. Lungs: No respiratory distress. Good air movement. No rhonchi, wheezing, rales. Abdomen: Soft with equivocal tenderness, difficult to localize. Normal bowel sounds. No distension. No rebound or guarding. Back: No CVA tenderness. Skin: Warm and dry. Neuro: Alert and oriented X 3. I reviewed all diagnostic test results. My interpretation of the EKG is sinus rhythm with nonspecific ST-T changes. My interpretation of the chest x-ray is mild vascular congestion. My review of the abdominal US report is gallbladder sludge. My review of the CT chest abdomen pelvis report is cirrhosis and ascites. Blood tests remarkable for Glucose 606. COVID/Influenza negative. At this point, diagnoses include: Hyperglycemia Gallbladder sludge Cirrhosis Ascites Treatment here included: Insulin 10 units IV X 2 Zofran 4 mg IV IV fluid Significant improvement noted. Recommended outpatient management. Based on my best medical judgment, made decision no further evaluation or treatment indicated at this time. Patient understands and agrees to the discharge instructions customized and printed, see below. Discharge Instructions from Dr. Augustin printed for you: 1. After evaluation, you were treated for very high sugar levels. 2. Your other diagnoses include cirrhosis (liver disease) and ascites (fluid in abdomen due to cirrhosis) and sludge in your gallbladder. 3. See your private doctor on 03/29/2025 for recheck and further care. Ask to review all test results and official radiology reports, to make sure you receive all necessary follow-ups and monitoring. Ask for help with better management of your diabetes. Ask for a referral to see equity director (Dr. Ramirez in [facility] is a good choice) for your cirrhosis and ascites and sludge in your gallbladder. 4. Seek immediate medical care with worsening or with any concerns. Hilario Augustin MD Patient data External records reviewed:: [facility] previous records (Per chart review, patient was seen here on 02/18/25 for elevated blood pressure reading.) Clinical information provided by:: patient Social determinants that could affect healthcare access:: none Patient has the following chronic illnesses:: ESRD, DM, HTN, near blindness How is presenting disease/condition affected by chronic disease/condition?: caused by Evaluation data The following diagnostics were reviewed and interpreted by me:: lab results, radiology exam(s) and EKG tracing(s) (My interpretation of the EKG is: Sinus rhythm (69 bpm) with nonspecific ST-T changes. Hilario Augustin MD) Lab and/or radiology exams considered but not ordered:: none Interpretation Summary: I reviewed all diagnostic test results. My interpretation of the EKG is sinus rhythm with nonspecific ST-T changes. My interpretation of the chest x-ray is mild vascular congestion. My review of the abdominal US report is gallbladder sludge. My review of the CT chest abdomen pelvis report is cirrhosis and ascites. Blood tests remarkable for Glucose 606. COVID/Influenza negative. Medications / Prescriptions Medications or Prescriptions considered but not ordered:: none Medication administrations:: Medication Administration History Discontinued Medications Sodium Chloride (Ns) 250 mls @ 100 mls/hr IV .Q2H30M ONE Stop: 03/28/25 22:05 Last Infusion: 03/28/25 20:26 Dose: Infused Documented By: Admin: 03/28/25 19:41 Dose: 100 mls/hr Documented By: AFSHIN Insulin Human Regular (Insulin Hum Regular 1 Unit/0.01 Ml (Per Unit)) 10 unit IV X1 ONE Stop: 03/28/25 19:29 Last Admin: 03/28/25 19:39 Dose: 10 unit Documented By: BD Co-signed By: EDEN Insulin Human Regular (Insulin Hum Regular 1 Unit/0.01 Ml (Per Unit)) 10 unit IV X1 ONE Stop: 03/28/25 20:31 Last Admin: 03/28/25 20:40 Dose: 10 unit Documented By: BD Co-signed By: PAULA Ondansetron HCl (Ondansetron Inj 2 Mg/Ml Inj 2 Ml) 4 mg IVP X1 ONE; Protocol Stop: 03/28/25 19:37 Last Admin: 03/28/25 19:40 Dose: 4 mg Documented By: AFSHIN Treatment here included: Insulin 10 units IV X 2 Zofran 4 mg IV IV fluid Consultations Consultation(s) initiated? (list below): No Diagnosis Recheck Differential Diagnosis: other (Hyperglycemia, DKA, GERD, PUD, gastritis, biliary colic) Most likely diagnosis given after review of the tests above:: Hyperglycemia, Gallbladder sludge, Cirrhosis, Ascites Admission Indicated Admission indicated?: not indicated Explain why admission is indicated or not indicated:: With significant improvement and no condition needing emergent intervention, there was no indication for admission. Admission Request Was there a request for admission?: No Disposition Plan Disposition Plan: Discharge Discharge Attestation Discharge Attestation: The patient and all family members were given an opportunity to ask questions and understood the discharge instructions. Discharge instructions specifically effects, indications for sooner follow up or return to the emergency department, and the expected course of current diagnosis. Patient condition: Stable Discharge Plan Plan Patient Disposition: HOME (Self Care) Prescriptions/Referrals Prescriptions/Med Rec: New acetaminophen-codeine 300-30 mg tablet 2 tab PO Q8H MDD 6 PRN (Reason: pain) Qty: 20 0RF ondansetron 4 mg tablet,disintegrating 4 mg PO TID PRN (Reason: nausea and vomiting) 30 Days Qty: 10 0RF No Action insulin glargine [Basaglar KwikPen U-100 Insulin] 100 unit/mL (3 mL) insulin pen 60 unit SUBCUT QAM Patient Comments: INJECT 60 UNITS SUBCUTANEOUSLY TWICE A DAY Rx Instructions: per patient takes 30-50units BID depending on his sugar levels calcium acetate 667 mg Tablet 667 mg PO TID nifedipine 30 mg tablet extended release 24hr 30 mg PO HS Patient Comments: TAKE 2 TABLETS BY MOUTH EVERY DAY labetalol 200 mg tablet 200 mg PO BID Yuliana-Ethel 0.8 mg tablet 1 tab PO QDAY Patient Comments: TAKE 1 TABLET BY MOUTH EVERY DAY insulin glargine [Basaglar KwikPen U-100 Insulin] 100 unit/mL (3 mL) Insulin Pen 40 unit SUBCUT HS PRN (Reason: Hyperglycemia) mupirocin 2 % ointment 1 applic topical BID Qty: 22 0RF clonidine HCl 0.2 mg tablet 0.2 mg PO BID PRN (Reason: Blood pressure above 170/100) Qty: 10 0RF Rx Instructions: Take 1 tablet if blood pressures still elevated in the 170s/100s after you have taken your antihypertensive medications. Referrals: Emeterio Gomez MD [Primary Care Provider, Nephrology] - In 1 week Problem List Clinical Impression: Hyperglycemia, Gallbladder sludge, Cirrhosis, Ascites Patient/Caregiver Discharge Instructions Discharge Activity: activity as tolerated Education Materials: ED Ascites, ED Cirrhosis, ED Diabetes with High Blood Sugar, ED Gallstones with Biliary Colic Additional Instructions: Discharge Instructions from Dr. Augustin printed for you: 1. After evaluation, you were treated for very high sugar levels. 2. Your other diagnoses include cirrhosis (liver disease) and ascites (fluid in abdomen due to cirrhosis) and sludge in your gallbladder. 3. See your private doctor on 03/29/2025 for recheck and further care. Ask to review all test results and official radiology reports, to make sure you receive all necessary follow-ups and monitoring. Ask for help with better management of your diabetes. Ask for a referral to see equity director (Dr. Ramirez in [facility] is a good choice) for your cirrhosis and ascites and sludge in your gallbladder. 4. Seek immediate medical care with worsening or with any concerns. Print Language: Tanzanian Stand Alone Forms: [employer] Award Info., Patient Portal Info Letter
--- NOTE | 2025-03-28 19:36 | PC.NURSE ---
bedside glucose monitor attempted to high to read
--- NOTE | 2025-03-28 19:37 | XR_ITS ---
Examination: AP chest single view Technique: AP portable upright chest single view Date and time: March 28, 2025, 2005 hrs., Comparison February 17, 2025 Indications: Shortness breath today. Findings: Mild enlargement cardiac contour. Mild vascular congestion. No lobar pneumonia or pulmonary edema. Impression: Mild enlargement cardiac contour. Mild vascular congestion
--- NOTE | 2025-03-28 19:37 | XR_ITS ---
Examination: CT chest, without intravenous contrast. CT abdomen, without intravenous contrast. CT pelvis, without intravenous contrast. 2-D sagittal and coronal reconstructions. 3-D reconstructions. Date and time of exam:March 28, 2025 1953 hrs. Indications: Chest pain shortness of breath right-sided abdominal pain today Comparison: April 10, 2024 CTDI vol (mgy) 7.74 DLP (MGycm)the 583 Technique: Multiple CT images, 3.0 mm slice thickness, obtained chest, abdomen, pelvis, with the high-resolution 64 slice scanner.. Sagittal and coronal 2-D reconstructions are obtained. 3-D reconstructions Low dose protocols were performed. One or more of the following dose reduction techniques were used; automated exposure control, adjustment of the mA and/or KV according to patient size, use of iterative reconstruction technique. Findings: No thoracic aortic aneurysm dilatation Pulmonary artery segments are not enlarged. No paratracheal tracheobronchial or bronchopulmonary adenopathy. Nodular disease in the lingular segment 16 mm which may represent atelectasis No lobar pneumonia No visualized liver splenic lesion Liver is irregular in contour There is mild ascites Gallbladder wall appears thickened No pancreatic mass No renal or ureteral calculi, no hydronephrosis No bowel obstruction Appendix is not diagnostically visualized No bowel obstruction Marked thickening of urinary bladder wall No prostatomegaly Prominent osteopenia Impression: Probable atelectasis in the lingular segment No pulmonary edema Cirrhosis Mild ascites No bowel obstruction Gallbladder wall is thickened but this may relate to the patient's ascites, consider HIDA scan or MRCP follow-up
--- NOTE | 2025-03-28 19:37 | EKG_ITS ---
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
[2025-03-28] MEDS: INSULIN HUM REGULAR 1 UNIT/0.01 ML (PER UNIT) 10 UNIT IV ×2 (19:39→20:40)
[2025-03-28] MEDS: ONDANSETRON INJ 2 MG/ML INJ 2 ML 4 MG IVP (19:40)
[2025-03-28 19:41] VITALS: BP 174/92; PULSE 68; RESP 16; TEMP 36.8; O2SAT 100
[2025-03-28] MEDS: SODIUM CHLORIDE 0.9% 250 ML 250 ML 100 ML IV (19:41)
--- NOTE | 2025-03-28 19:46 | PC.NURSE ---
pt went to ct will get ekg when pt comes back
[2025-03-28 20:26] LABS: Sed Rate (ESR) 27 mm/hr (0-15)
[2025-03-28 20:34] LABS: Lactate (Lactic Acid) 1.8 mMol/L (0.4-2.0)
[2025-03-28 21:00] VITALS: BP 164/89; PULSE 71; RESP 16; TEMP 37; O2SAT 98
[2025-03-28 21:02] LABS: B-Type Natriuretic Peptide 1811 pg/mL (0-100)
[2025-03-28 21:20] LABS: Amylase 32 U/L (30-118); Bilirubin,Direct 0.3 mg/dL (0.0-0.3); C-Reactive Protein < 0.5 mg/dL (0.0-0.9); Magnesium 2.1 mg/dL (1.6-2.6); Procalcitonin 0.32 ng/ml (0.0-0.49); Thyroid Stimulating Hormone 1.63 uIU/mL (0.55-4.78); Troponin I < 0.020 ng/mL (0.0-0.045)
== END 2025-03-28 22:01 | disposition home or self-care (01) ==
PROVIDERS: Emergency Medicine; Emergency Provider Emergency Medicine; PCP Internal Medicine
DX: K74.60 Unspecified cirrhosis of liver (principal); R18.8 Other ascites; R94.31 Abnormal electrocardiogram [ECG] [EKG]; R09.89 Other specified symptoms and signs involving the circulatory and respiratory systems; I12.0 Hypertensive chronic kidney disease with stage 5 chronic kidney disease or end stage renal disease; N18.6 End stage renal disease; Z99.2 Dependence on renal dialysis; E11.22 Type 2 diabetes mellitus with diabetic chronic kidney disease
CPT/HCPCS: 36415; 71045; 71250; 74176; 76705; 80053; 82010; 82150; 82248; 82803; 83605; 83735; 83880; 84145; 84443; 84484; 85025; 85652; 86140; 87040; 87400; 87811; 93005; 96361; 96374; 99284; J1815; J2405; J7050

== ENCOUNTER 2025-04-22 22:35 | Emergency (ER) | payer MEDICAID, SELFPAY ==
[2025-04-22 22:39] VITALS: BP 183/99; PULSE 74; RESP 18; TEMP 36.7; O2SAT 96; BMI 28.4
--- NOTE | 2025-04-22 22:40 | EKG_ITS ---
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
--- NOTE | 2025-04-22 23:30 | XR_ITS ---
Examination: CT brain head without contrast. 2-D sagittal coronal reconstructions Date and time of exam: April 22, 2025, 11:50 p.m., comparison July 21, 2023 INDICATIONS: Headache with numbness in the left side of the body today CTDI: vol (mGy): 50.5 DLP: (mGycm): 1010 Technique: Multiple CT axial sections of the brain have been obtained, 5 mm slice thickness. Contrast has not been administered. 2-D sagittal, coronal reconstructions have been obtained Low dose protocols were performed. One or more of the following dose reduction techniques were used; automated exposure control, adjustment of the mA and/or KV according to patient size, use of iterative reconstruction technique. Findings: No significant ventricular enlargement. Intra-axial or extra-axial hemorrhage density is not seen. No mass effect or midline shift Basal cisterns are not remarkable. Fourth ventricle is midline. Cranial vault intact. Impression: Negative for acute hemorrhage, mass effect or midline shift As clinically warranted, brain MRI follow-up would best assess for demyelinating disease, acute ischemic change
--- NOTE | 2025-04-22 23:30 | XR_ITS ---
EXAMINATION: PA chest single view TECHNIQUE: 1. Upright PA chest single view Date and time: April 22, 2025, 1151 hours INDICATIONS: Chest pain shortness of breath today. FINDINGS: Early pneumonia left base. No significant cardiac enlargement. Mild vascular congestion. Intact osseous structures IMPRESSION: Early pneumonia left base
--- NOTE | 2025-04-22 23:31 | PD.EDRME ---
Rapid Medical Screening Exam RME Arrival date/time: 04/22/25 22:35 40M with history of ESRD (TRS; does not produce urine) and DM presents to ED with several days CP, SERRANO, and some paresthesia/numbness, primarily in LLE. Chief Complaint: Chest Pain Vital signs: Vital Signs Temperature 98.1 F 04/22/25 22:39 Pulse Rate 74 04/22/25 22:39 Respiratory Rate 18 04/22/25 22:39 Blood Pressure 183/99 H 04/22/25 22:39 Pulse Oximetry (%) 96 04/22/25 22:39 Oxygen Delivery Method Room Air 04/22/25 22:39
[2025-04-22 23:49] LABS: Basophils # (Auto) 0.1 Thou/mm3 (0.0-0.2); Basophils % (Auto) 1 % (0-2.5); Eosinophils # (Auto) 0.1 Thou/mm3 (0.0-0.5); Eosinophils % (Auto) 2 % (0-10); Hematocrit 39.3 % (41.0-53.0); Hemoglobin 12.8 g/dL (13.5-16.0); Immature Granulocytes Auto 0.03 Thou/mm3 (0.00-0.00); Lymphocytes # (Auto) 1.9 Thou/mm3 (1.0-4.8); Lymphocytes % (Auto) 26 % (10-50); Mean Corpuscular HGB Conc 32.6 g/dl (31.0-37.0); Mean Corpuscular Hemoglobin 27.4 pg (25.0-35.0); Mean Corpuscular Volume 84 fL (80-100); Monocytes # (Auto) 0.7 Thou/mm3 (0.0-0.8); Monocytes % (Auto) 9 % (0-12); Neutrophils # (Auto) 4.4 Thou/mm3 (1.8-7.7); Neutrophils % (Auto) 61 % (37-80); Nucleated Red Blood Cell # 0.00 Thou/mm3 (0.00-0.00); Nucleated Red Blood Cell % 0 /100 WBC (0); Platelet Count 208 Thou/mm3 (140-440); RDW Standard Deviation 41.9 fL (35.1-43.9); Red Blood Count 4.68 Miln/mm3 (4.50-5.90); White Blood Count 7.2 Thou/mm3 (3.8-10.6)
[2025-04-23 00:05] VITALS: BP 209/103; PULSE 71; RESP 18; O2SAT 98
--- NOTE | 2025-04-23 00:12 | PD.EDCHEST ---
ED Chest Pain RME/HPI General Chief Complaint: Chest Pain Stated Complaint: DIALYSIS PT HTN, CHEST PAIN, MULTIPLE COMPLAINTS Arrival date/time: 04/22/25 22:35 RME / HPI RME / HPI narrative: 04/22/25 22:35 40M with history of ESRD (TRS; does not produce urine) and DM presents to ED with several days CP, SERRANO, and some paresthesia/numbness, primarily in LLE. ------- Dr. Davalos?s Main ED Evaluation: 40yo male with a history of ESRD on HD (//Sat), HTN, DM presents to the ED for a chief complaint of chest tightness x 2200. Patient states he woke up with chest tightness/numbness tonight and was concerned because his blood pressure is elevated (has been for the last few weeks despite taking his antihypertensives). Patient denies any shortness of breath, fever, chills, or any other associated symptoms. Patient was last dialyzed yesterday. NKA. Related Data Home Medications ?Medication ?Instructions ?Recorded ?Confirmed insulin glargine 100 unit/mL (3 60 unit subcut QAM 08/12/23 04/15/24 mL) subcutaneous pen (Basaglar KwikPen U-100 Insulin) calcium acetate 667 mg tablet 667 mg PO TID 10/10/23 04/15/24 insulin glargine 100 unit/mL (3 40 unit subcut HS PRN Hyperglycemia 12/24/23 04/15/24 mL) subcutaneous pen (Basaglar KwikPen U-100 Insulin) labetalol 200 mg tablet 200 mg PO BID 12/24/23 04/15/24 nifedipine 30 mg tablet,extended 30 mg PO HS 12/24/23 04/15/24 release 24 hr vitamin B complex-vitamin C-folic 1 tab PO QDAY 12/24/23 04/15/24 acid 0.8 mg tablet (Yuliana-Ethel) Previous Rx's ?Medication ?Instructions ?Recorded mupirocin 2 % topical ointment 1 applic topical BID On the foot 09/22/24 and ankle wound #22 grams clonidine HCl 0.2 mg tablet 0.2 mg PO BID PRN Blood pressure 02/17/25 above 170/100 #10 tabs acetaminophen 300 mg-codeine 30 mg 2 tab PO Q8H PRN pain #20 tabs 03/28/25 tablet ondansetron 4 mg disintegrating 4 mg PO TID PRN nausea and 03/28/25 tablet vomiting 30 days #10 tabs Allergies Allergy/AdvReac Type Severity Reaction Status Date / Time No Known Allergies Allergy Verified 04/22/25 22:46 Review of Systems Review of Systems Systems Reviewed: All systems reviewed, normal except as documented Past Medical History Past Medical History NEUROLOGIC: Negative Neurological Disorders or Seizures CARDIAC: Positive Hypertension; Negative Cardiac Disorders or Congestive Heart Failure RESPIRATORY: Negative Chronic Obstructive Pulmonary Disease (COPD) or Asthma GASTROINTESTINAL: Positive Hiatal Hernia and Gastroesophageal Reflux Disease; Negative Gastrointestinal Disorders, Hepatitis, Gall Bladder Disease, Gastrointestinal Bleed or Esophageal Varices GENITOURINARY: Positive Renal Disease and Dialysis (--SAT) MUSCULOSKELETAL: Negative Musculoskeletal Disorders or Fractures ENT: Positive Blind; Negative Cataracts, Ear Infection or Deafness ENDOCRINE: Positive Endocrine Disorders, Diabetes Mellitus Type 2 and Hyperthyroidism; Negative Diabetes Mellitus Type 1 HEMATOLOGIC: Negative Blood Disorders or Sickle Cell Disease PSYCHO/SOCIAL: Negative Schizophrenia OTHER HISTORY: Positive Falls, Blood Transfusions, MRSA and Chicken Pox; Negative Autoimmune Disease, Blood Transfusion Reaction, Anesthesia Reactions or Cancer Family History FAMILY HISTORY: Negative Family Cardiac Disorders or Family Anesthesia Reaction Surgical History SURGICAL: Positive Eye Surgery and Abdominal Surgery; Negative Cardiac Surgery, Nephrectomy or Joint Replacement Social History SMOKING STATUS: Never smoker SUBSTANCE USE: marijuana ED Exam Narrative Physical exam: Generally patient is alert and oriented x 3 in no obvious distress, heart regular rate and rhythm, lungs clear to auscultation equal bilaterally, abdomen soft bowel sounds present nondistended nontender, neurologic exam shows Underwood Coma Scale of 15 without focal motor deficits. Extremities show strong palpable thrill to left upper extremity dialysis fistula Course Course Course Narrative: CXR is ordered for determining the etiology of chest pain. Quality Measures none Orders Category Date Time Status EKG (ED ONLY) *Do not use* NOW Care 04/22/25 22:[address] head/brain wo con Stat Exams 04/22/25 23:30 Completed EKG (ED Only) Stat Exams 04/22/25 22:40 Draft XR chest 1V portable Stat Exams 04/22/25 23:30 Completed B-Type Natriuretic Peptide Stat Lab 04/22/25 23:38 Completed CBC Stat Lab 04/22/25 23:38 Completed Comprehensive Metabolic Panel Stat Lab 04/22/25 23:38 Completed Magnesium Stat Lab 04/22/25 23:38 Completed Troponin I Stat Lab 04/22/25 23:38 Completed cloNIDine HCL [Catapres] Med 04/23/25 00:19 Discontinued 0.3 mg PO X1 ONE Vital Signs Vital signs: Vital Signs Temperature 98.1 F 04/22/25 22:39 Pulse Rate 74 04/22/25 22:39 Respiratory Rate 18 04/22/25 22:39 Blood Pressure 183/99 H 04/22/25 22:39 Pulse Oximetry (%) 96 04/22/25 22:39 Oxygen Delivery Method Room Air 04/22/25 22:39 Chest Pain MDM Narrative MDM Narrative:: Scribe Attestation: 04/23/25 - Priyanka, Gabby Sultana am scribing for and in the presence of Dr. Davalos. I interpreted all labs. Potassium is 5.0. Troponin is not elevated. EKG shows normal sinus rhythm at rate of 74 without ischemic change or ectopy. Head CT is negative. For the patient's hypertension the patient did receive clonidine 0.3 mg p.o. here in the emergency room because the patient wanted to be treated for his hypertension here in the emergency room but did not have an IV. Patient is stable for discharge. He sees his doctor tomorrow on Saturday and at that time he he can get adjustments in his hypertension medication. Patient data External records reviewed:: [facility] previous records (Per chart review, patient was seen here on 03/28/25 for ascites.) Clinical information provided by:: patient Social determinants that could affect healthcare access:: none Patient has the following chronic illnesses:: ESRD on HD (//Sat), HTN, DM How is presenting disease/condition affected by chronic disease/condition?: exacerbated by Evaluation data The following diagnostics were reviewed and interpreted by me:: lab results, radiology exam(s) and EKG tracing(s) Lab and/or radiology exams considered but not ordered:: none Interpretation Summary: [facility] Signed Patient: ALLISON BRUNERDRO [facility]. Record#: [id number] Birthdate: 1985 Age/Sex: 40 / M Location: [facility] Attending Dr: Ordering Physician: Sunil Sutton PA-C Date of Service: 04/22/25 Procedure(s): XR chest 1V portable Accession Number(s): [id number] cc: Marty Nielson MD; Sunil Sutton PA-C; Emeterio Gomez MD~ EXAMINATION: PA chest single view TECHNIQUE: 1. Upright PA chest single view Date and time: April 22, 2025, 1151 hours INDICATIONS: Chest pain shortness of breath today. FINDINGS: Early pneumonia left base. No significant cardiac enlargement. Mild vascular congestion. Intact osseous structures IMPRESSION: Early pneumonia left base Dictated By: Marty Nielson MD Signed By: <Electronically signed by Marty Nielson MD in OV> 04/23/25 0002 [facility] Signed Patient: NORM BRUNER. Record#: [id number] Birthdate: 1985 Age/Sex: 40 / M Location: [facility] Attending Dr: Ordering Physician: Sunil Sutton PA-C Date of Service: 04/22/25 Procedure(s): CT head/brain wo con Accession Number(s): [id number] cc: Marty Nielson MD; Sunil Sutton PA-C; Emeterio Gomez MD~ Examination: CT brain head without contrast. 2-D sagittal coronal reconstructions Date and time of exam: April 22, 2025, 11:50 p.m., comparison July 21, 2023 INDICATIONS: Headache with numbness in the left side of the body today CTDI: vol (mGy): 50.5 DLP: (mGycm): 1010 Technique: Multiple CT axial sections of the brain have been obtained, 5 mm slice thickness. Contrast has not been administered. 2-D sagittal, coronal reconstructions have been obtained Low dose protocols were performed. One or more of the following dose reduction techniques were used; automated exposure control, adjustment of the mA and/or KV according to patient size, use of iterative reconstruction technique. Findings: No significant ventricular enlargement. Intra-axial or extra-axial hemorrhage density is not seen. No mass effect or midline shift Basal cisterns are not remarkable. Fourth ventricle is midline. Cranial vault intact. Impression: Negative for acute hemorrhage, mass effect or midline shift As clinically warranted, brain MRI follow-up would best assess for demyelinating disease, acute ischemic change Dictated By: Marty Nielson MD Signed By: <Electronically signed by Marty Nielson MD in OV> 04/22/25 7918 Medications / Prescriptions Medications or Prescriptions considered but not ordered:: none Medication administrations:: Medication Administration History Discontinued Medications Clonidine (Clonidine Hcl 0.1 Mg Tablet) 0.3 mg PO X1 ONE Stop: 04/23/25 00:20 Last Admin: 04/23/25 00:32 Dose: 0.3 mg Documented By: GIL see above Consultations Consultation(s) initiated? (list below): No Diagnosis Chest Pain Differential Diagnosis: other (See MDM) Most likely diagnosis given after review of the tests above:: see clinical impression below Admission Indicated Admission indicated?: not indicated Admission Request Was there a request for admission?: No Disposition Plan Disposition Plan: Discharge Discharge Attestation Discharge Attestation: The patient and all family members were given an opportunity to ask questions and understood the discharge instructions. Discharge instructions specifically effects, indications for sooner follow up or return to the emergency department, and the expected course of current diagnosis. Patient condition: Stable Discharge Plan Plan Patient Disposition: HOME (Self Care) Prescriptions/Referrals Prescriptions/Med Rec: No Action insulin glargine [Basaglar KwikPen U-100 Insulin] 100 unit/mL (3 mL) insulin pen 60 unit SUBCUT QAM Patient Comments: INJECT 60 UNITS SUBCUTANEOUSLY TWICE A DAY Rx Instructions: per patient takes 30-50units BID depending on his sugar levels calcium acetate 667 mg Tablet 667 mg PO TID nifedipine 30 mg tablet extended release 24hr 30 mg PO HS Patient Comments: TAKE 2 TABLETS BY MOUTH EVERY DAY labetalol 200 mg tablet 200 mg PO BID Yuliana-Ethel 0.8 mg tablet 1 tab PO QDAY Patient Comments: TAKE 1 TABLET BY MOUTH EVERY DAY insulin glargine [Basaglar KwikPen U-100 Insulin] 100 unit/mL (3 mL) Insulin Pen 40 unit SUBCUT HS PRN (Reason: Hyperglycemia) mupirocin 2 % ointment 1 applic topical BID Qty: 22 0RF clonidine HCl 0.2 mg tablet 0.2 mg PO BID PRN (Reason: Blood pressure above 170/100) Qty: 10 0RF Rx Instructions: Take 1 tablet if blood pressures still elevated in the 170s/100s after you have taken your antihypertensive medications. acetaminophen-codeine 300-30 mg tablet 2 tab PO Q8H MDD 6 PRN (Reason: pain) Qty: 20 0RF ondansetron 4 mg tablet,disintegrating 4 mg PO TID PRN (Reason: nausea and vomiting) 30 Days Qty: 10 0RF Referrals: Emeterio Gomez MD [Primary Care Provider, Nephrology] - In 1 week Problem List Clinical Impression: Poorly-controlled hypertension Patient/Caregiver Discharge Instructions Education Materials: ED Hypertension, Established Additional Instructions: Speak with your physician about changes that need to be made to your hypertension medication. Keep your dialysis appointments. Print Language: Afghan Stand Alone Forms: Zaira Award Info., Patient Portal Info Letter
[2025-04-23 00:32] VITALS: BP 205/103; PULSE 71
[2025-04-23 00:45] LABS: Alanine Aminotransferase 18 U/L (10-49); Albumin, Serum 5.1 gm/dL (3.5-5.0); Albumin/Globulin Ratio 1.5 (1.2-2.2); Alkaline Phosphatase 203 U/L (46-116); Anion Gap 13 (7-16); Aspartate Amino Transferase 25 U/L (0-34); BUN/Creatinine Ratio 5 Ratio (12-20); Bilirubin,Total 0.7 mg/dL (0.3-1.2); Blood Urea Nitrogen 33 mg/dL (9-23); Calcium 9.3 mg/dL (8.3-10.6); Calcium (Corrected) 9.3 mg/dL (8.5-10.1); Carbon Dioxide 31.9 mMol/L (20.0-31.0); Chloride 90 mMol/L (98-107); Creatinine (Component) 6.5 mg/dL (0.6-1.3); Estimated Creatinine Clearance 15.2 mL/min (>60); Globulin 3.4 gm/dL (2.3-3.5); Glucose 333 mg/dL (74-106); Magnesium 2.2 mg/dL (1.6-2.6); Osmolality,Calculated 290 (275-295); Potassium 5.0 mMol/L (3.4-5.1); Sodium 135 mMol/L (136-145); Total Protein 8.5 gm/dL (5.7-8.2); Troponin I < 0.020 ng/mL (0.0-0.045); eGFR 10 See Note
[2025-04-23 00:47] LABS: B-Type Natriuretic Peptide 818 pg/mL (0-100)
[2025-04-23 01:10] VITALS: BP 208/105; PULSE 75; RESP 18; O2SAT 96
== END 2025-04-23 01:11 | disposition home or self-care (01) ==
PROVIDERS: Physician Assistant; Emergency Provider Emergency Medicine; PCP Internal Medicine
DX: J18.9 Pneumonia, unspecified organism (principal); E11.22 Type 2 diabetes mellitus with diabetic chronic kidney disease; I12.0 Hypertensive chronic kidney disease with stage 5 chronic kidney disease or end stage renal disease; Z96.60 Presence of unspecified orthopedic joint implant; N18.6 End stage renal disease; Z99.2 Dependence on renal dialysis
CPT/HCPCS: 36415; 70450; 71045; 80053; 83735; 83880; 84484; 85025; 93005; 99283; A9270

== ENCOUNTER 2025-05-18 22:46 | Emergency (ER) | payer MEDICAID, SELFPAY ==
[2025-05-18 22:48] VITALS: BMI 27.7
--- NOTE | 2025-05-18 22:52 | EKG_ITS ---
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
[2025-05-18 22:58] VITALS: BP 213/108; PULSE 69; RESP 17; TEMP 37.1; O2SAT 98
--- NOTE | 2025-05-18 23:09 | PD.EDDIZZY ---
ED Dizzyness RME/HPI General Chief Complaint: Dizziness Stated Complaint: HIGH BLOOD PRESSURE, DIZZY Time Seen by Provider: 05/18/25 23:09 Arrival date/time: 05/18/25 22:46 RME / HPI RME / HPI Narrative: Dr. Alvarado?s Main ED Evaluation: 40yo male with a history of ESRD on HD (//Sat), last dialyzed earlier today presenting with escalating blood pressure that peaked at 250/176. Patient reports having a bitemporal throbbing headache. No N/V or visual disturbance. No UE or LE paresthesias. 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 Patient has had similar episodes in the past requiring IV reduction of blood pressure. Patient's baseline blood pressure runs from 140-160 systolically and 70-90 diastolically. Related Data Home Medications ?Medication ?Instructions ?Recorded ?Confirmed insulin glargine 100 unit/mL (3 60 unit subcut QAM 08/12/23 04/15/24 mL) subcutaneous pen (Basaglar KwikPen U-100 Insulin) calcium acetate 667 mg tablet 667 mg PO TID 10/10/23 04/15/24 insulin glargine 100 unit/mL (3 40 unit subcut HS PRN Hyperglycemia 12/24/23 04/15/24 mL) subcutaneous pen (Basaglar KwikPen U-100 Insulin) labetalol 200 mg tablet 200 mg PO BID 12/24/23 04/15/24 nifedipine 30 mg tablet,extended 30 mg PO HS 12/24/23 04/15/24 release 24 hr vitamin B complex-vitamin C-folic 1 tab PO QDAY 12/24/23 04/15/24 acid 0.8 mg tablet (Yuliana-Ethel) Previous Rx's ?Medication ?Instructions ?Recorded mupirocin 2 % topical ointment 1 applic topical BID On the foot 09/22/24 and ankle wound #22 grams clonidine HCl 0.2 mg tablet 0.2 mg PO BID PRN Blood pressure 02/17/25 above 170/100 #10 tabs acetaminophen 300 mg-codeine 30 mg 2 tab PO Q8H PRN pain #20 tabs 03/28/25 tablet clonidine HCl 0.2 mg tablet 0.2 mg PO BID HTN #20 tabs 05/19/25 nifedipine 90 mg tablet,extended 90 mg PO QDAY #30 tabs 05/19/25 release 24 hr (Procardia XL) Allergies Allergy/AdvReac Type Severity Reaction Status Date / Time No Known Allergies Allergy Verified 05/18/25 22:48 Review of Systems Review of Systems Systems Reviewed: All systems reviewed, normal except as documented ED Exam Narrative Physical exam: GENERAL APPEARANCE: alert and oriented x 4, well-developed, well-nourished, no acute distress VITALS: All vitals were reviewed and the pulse ox is 98% on room air, which is normal according to my interpretation. Markedly hypertensive. HEENT: Normocephalic, atraumatic; pupils equal, round, reactive to light; EOMI; mucous membranes pink, moist; oropharynx clear NECK: Supple, no JVD LUNGS: CTABL; no wheezes, no rales, no rhonchi HEART: Regular rate, regular rhythm; normal S1, S2; no murmurs ABDOMEN: non distended; soft, no tenderness EXTREMITIES: atraumatic; no edema NEUROLOGIC: awake; alert and oriented x4; cranial nerves II-XII grossly intact; no focal sensory or motor deficits PSYCHIATRIC: appropriate mood and affect SKIN: warm, dry, normal color; no rashes Course Quality Measures none Orders Category Date Time Status Blood glucose [Bedside Blood Glucose] NOW Care 05/18/25 22:52 Active EKG (ED ONLY) *Do not use* NOW Care 05/18/25 22:52 Completed EKG (ED Only) Stat Exams 05/18/25 22:52 Draft B-Type Natriuretic Peptide Stat Lab 05/18/25 23:50 Completed CBC Stat Lab 05/18/25 23:50 Completed Comprehensive Metabolic Panel Stat Lab 05/18/25 23:50 Completed LDH (Lactate Dehydrogenase) Stat Lab 05/18/25 23:50 Completed Magnesium Stat Lab 05/18/25 23:50 Completed Partial Thromboplastin Time Stat Lab 05/18/25 23:50 Completed Prothrombin Time with INR Stat Lab 05/18/25 23:50 Completed Troponin I Stat Lab 05/18/25 23:50 Completed Morphine* Inj Med 05/18/25 23:26 Discontinued 4 mg IVP X1 ONE Nitroglycerin Oint 2% [Nitro-paste Oint 2%] Med 05/18/25 23:26 Discontinued 2 inch TOP X1 ONE Prochlorperazine Inj [Compazine Inj] Med 05/18/25 23:26 Discontinued 5 mg IV X1 ONE hydrALAZINE INJ [Apresoline Inj] Med 05/18/25 23:26 Discontinued 10 mg IVP X1 ONE hydrALAZINE INJ [Apresoline Inj] Med 05/19/25 00:17 Discontinued 10 mg IVP X1 ONE Vital Signs Vital signs: Vital Signs Temperature 98.8 F 05/18/25 22:58 Pulse Rate 69 05/18/25 22:58 Respiratory Rate 17 05/18/25 22:58 Blood Pressure 213/108 H 05/18/25 22:58 Pulse Oximetry (%) 98 05/18/25 22:58 Oxygen Delivery Method Room Air 05/18/25 22:58 Dizziness MDM Narrative MDM Narrative:: Scribe Attestation: 05/18/25 Gabby Estrada am scribing for and in the presence of Dr. Alvarado. 40yo male with a history of ESRD on HD (), last dialyzed earlier today presenting with escalating blood pressure that peaked at 250/176. Patient reports having a bitemporal throbbing headache. Please see PE findings. Lab markers demonstrate normal WBC count, stable anemia with Hgb 12.8, no left shift or bandemia. Chemistries show high normal K of 5, creatinine 6.5 with BUN 33 (baseline). BNP elevated at 818. No clinical signs of overload at this time. EKG done without signs of acute ischemia. Patient placed on nuclear monitoring technician, IV established, and received incremental doses of IV antihypertensive therapy with gradual reduction of blood pressure to acceptable limits. Will increase patient's Procardia to 30mg TID and provide Clonidine for rescue for bp consistently greater than 170/100. Close follow-up with PMD advised. Patient data External records reviewed:: [facility] previous records (Per chart review, patient was seen here on 04/23/25 for poorly-controlled hypertension.) Clinical information provided by:: patient Social determinants that could affect healthcare access:: none Patient has the following chronic illnesses:: ESRD on HD (//Sat), HTN, DM How is presenting disease/condition affected by chronic disease/condition?: caused by Evaluation data The following diagnostics were reviewed and interpreted by me:: lab results and EKG tracing(s) Lab and/or radiology exams considered but not ordered:: none Interpretation Summary: EKG done at 2254, sinus rhythm, rate of 69, no acute pathological ST segment changes, no ectopy, evidence of LVH by voltage criteria, normal axis, normal intervals, according to my interpretation. Medications / Prescriptions Medications or Prescriptions considered but not ordered:: none Medication administrations:: Medication Administration History Discontinued Medications Hydralazine HCl (Hydralazine Inj 20 Mg/Ml Vial) 10 mg IVP X1 ONE Stop: 05/18/25 23:27 Last Admin: 05/18/25 23:36 Dose: 10 mg Documented By: AC Hydralazine HCl (Hydralazine Inj 20 Mg/Ml Vial) 10 mg IVP X1 ONE Stop: 05/19/25 00:18 Last Admin: 05/19/25 00:23 Dose: 10 mg Documented By: DAIJA Morphine Sulfate (Morphine Sulf Inj 4 Mg/Ml Vial) 4 mg IVP X1 ONE Stop: 05/18/25 23:27 Last Admin: 05/18/25 23:38 Dose: Not Given Documented By: KARIS Non-Admin Reason: Patient Refused Nitroglycerin (Nitroglycerin Oint 2% 1 Inch Packet) 2 inch TOP X1 ONE Stop: 05/18/25 23:27 Last Admin: 05/18/25 23:37 Dose: 2 inch Documented By: KARIS Prochlorperazine Edisylate (Prochlorperazine Inj 5 Mg/Ml Vial 2 Ml) 5 mg IV X1 ONE; Protocol Stop: 05/18/25 23:27 Last Admin: 05/18/25 23:36 Dose: 5 mg Documented By: KARIS see above Consultations Consultation(s) initiated? (list below): No Diagnosis Dizziness Differential Diagnosis: other (uncontrolled hypertension, hypertensive emergency, dehydration) Most likely diagnosis given after review of the tests above:: see clinical impression below Admission Indicated Admission indicated?: not indicated Admission Request Was there a request for admission?: No Disposition Plan Disposition Plan: Discharge Discharge Attestation Discharge Attestation: The patient and all family members were given an opportunity to ask questions and understood the discharge instructions. Discharge instructions specifically effects, indications for sooner follow up or return to the emergency department, and the expected course of current diagnosis. Patient condition: Stable Discharge Plan Plan Patient Disposition: HOME (Self Care) Prescriptions/Referrals Prescriptions/Med Rec: New nifedipine [Procardia XL] 90 mg tablet extended release 24hr 90 mg PO QDAY Qty: 30 0RF clonidine HCl 0.2 mg tablet 0.2 mg PO BID Qty: 20 0RF Rx Instructions: Take clonidine as needed for systolic blood pressures greater than 170/100. May take up to twice daily No Action insulin glargine [Basaglar KwikPen U-100 Insulin] 100 unit/mL (3 mL) insulin pen 60 unit SUBCUT QAM Patient Comments: INJECT 60 UNITS SUBCUTANEOUSLY TWICE A DAY Rx Instructions: per patient takes 30-50units BID depending on his sugar levels calcium acetate 667 mg Tablet 667 mg PO TID nifedipine 30 mg tablet extended release 24hr 30 mg PO HS Patient Comments: TAKE 2 TABLETS BY MOUTH EVERY DAY labetalol 200 mg tablet 200 mg PO BID Yuliana-Ethel 0.8 mg tablet 1 tab PO QDAY Patient Comments: TAKE 1 TABLET BY MOUTH EVERY DAY insulin glargine [Basaglar KwikPen U-100 Insulin] 100 unit/mL (3 mL) Insulin Pen 40 unit SUBCUT HS PRN (Reason: Hyperglycemia) mupirocin 2 % ointment 1 applic topical BID Qty: 22 0RF clonidine HCl 0.2 mg tablet 0.2 mg PO BID PRN (Reason: Blood pressure above 170/100) Qty: 10 0RF Rx Instructions: Take 1 tablet if blood pressures still elevated in the 170s/100s after you have taken your antihypertensive medications. acetaminophen-codeine 300-30 mg tablet 2 tab PO Q8H MDD 6 PRN (Reason: pain) Qty: 20 0RF Referrals: Reagan Sultana MD [Primary Care Provider, Family Practice] - In 1 week Problem List Clinical Impression: Accelerated hypertension, History of end stage renal disease Clinical Impression: (Ruled Out): Chest wall pain Impression comment: Accelerated hypertension/ESRD. Patient/Caregiver Discharge Instructions Discharge Activity: activity as tolerated Diet Instructions: Low-salt/fat diet. Education Materials: Controlling High Blood Pressure, ED Hypertension, Established Additional Instructions: Will increase Procardia 90 XL 1 daily. Additionally will add clonidine 0.2 mg tablets as needed for systolic blood pressures greater than 170/100 Print Language: Amharic Stand Alone Forms: Zaira Award Info., Patient Portal Info Letter
[2025-05-18 23:36] VITALS: BP 230/115; PULSE 71
[2025-05-18] MEDS: PROCHLORPERAZINE INJ 5 MG/ML VIAL 2 ML IV (23:36)
[2025-05-18] MEDS: hydrALAZINE INJ 20 MG/ML VIAL 10 MG IVP (23:36)
[2025-05-18 23:37] VITALS: BP 230/115; PULSE 71
[2025-05-18] MEDS: NITROGLYCERIN OINT 2% 1 INCH PACKET 2 INCH TOP (23:37)
[2025-05-19 00:06] LABS: Basophils # (Auto) 0.1 Thou/mm3 (0.0-0.2); Basophils % (Auto) 1 % (0-2.5); Eosinophils # (Auto) 0.2 Thou/mm3 (0.0-0.5); Eosinophils % (Auto) 3 % (0-10); Hematocrit 34.3 % (41.0-53.0); Hemoglobin 11.5 g/dL (13.5-16.0); Immature Granulocytes Auto 0.02 Thou/mm3 (0.00-0.00); Lymphocytes # (Auto) 2.1 Thou/mm3 (1.0-4.8); Lymphocytes % (Auto) 30 % (10-50); Mean Corpuscular HGB Conc 33.5 g/dl (31.0-37.0); Mean Corpuscular Hemoglobin 27.3 pg (25.0-35.0); Mean Corpuscular Volume 82 fL (80-100); Monocytes # (Auto) 0.7 Thou/mm3 (0.0-0.8); Monocytes % (Auto) 10 % (0-12); Neutrophils # (Auto) 3.9 Thou/mm3 (1.8-7.7); Neutrophils % (Auto) 56 % (37-80); Nucleated Red Blood Cell # 0.00 Thou/mm3 (0.00-0.00); Nucleated Red Blood Cell % 0 /100 WBC (0); Platelet Count 169 Thou/mm3 (140-440); RDW Standard Deviation 40.0 fL (35.1-43.9); Red Blood Count 4.21 Miln/mm3 (4.50-5.90); White Blood Count 7.0 Thou/mm3 (3.8-10.6)
[2025-05-19 00:16] VITALS: BP 209/98; PULSE 69; RESP 16; TEMP 37.1; O2SAT 98
[2025-05-19 00:19] LABS: INR 1.1 (0.9-1.3); Partial Thromboplastin Time 27.9 Seconds (22.0-36.0); Prothrombin Time 11.7 Seconds (9.0-12.2)
[2025-05-19 00:23] VITALS: BP 204/101; PULSE 69
[2025-05-19] MEDS: hydrALAZINE INJ 20 MG/ML VIAL 10 MG IVP (00:23)
[2025-05-19 00:24] LABS: Alanine Aminotransferase 23 U/L (10-49); Albumin, Serum 4.7 gm/dL (3.5-5.0); Albumin/Globulin Ratio 1.7 (1.2-2.2); Alkaline Phosphatase 185 U/L (46-116); Anion Gap 11 (7-16); Aspartate Amino Transferase 23 U/L (0-34); BUN/Creatinine Ratio 5 Ratio (12-20); Bilirubin,Total 0.5 mg/dL (0.3-1.2); Blood Urea Nitrogen 24 mg/dL (9-23); Calcium 8.3 mg/dL (8.3-10.6); Calcium (Corrected) 8.3 mg/dL (8.5-10.1); Carbon Dioxide 37.1 mMol/L (20.0-31.0); Chloride 92 mMol/L (98-107); Creatinine (Component) 5.3 mg/dL (0.6-1.3); Estimated Creatinine Clearance 18.4 mL/min (>60); Globulin 2.8 gm/dL (2.3-3.5); Glucose 244 mg/dL (74-106); LDH (Lactate Dehydrogenase) 263 U/L (120-246); Magnesium 2.0 mg/dL (1.6-2.6); Osmolality,Calculated 291 (275-295); Potassium 4.5 mMol/L (3.4-5.1); Sodium 140 mMol/L (136-145); Total Protein 7.5 gm/dL (5.7-8.2); Troponin I < 0.020 ng/mL (0.0-0.045); eGFR 13 See Note
[2025-05-19 00:34] LABS: B-Type Natriuretic Peptide 786 pg/mL (0-100)
[2025-05-19 00:45] VITALS: BP 185/94; PULSE 70; RESP 14; O2SAT 99
[2025-05-19 01:18] VITALS: BP 178/85; PULSE 67; RESP 15; O2SAT 15
[2025-05-19 02:20] VITALS: BP 180/88; PULSE 67; RESP 16; TEMP 36.4; O2SAT 99
[2025-05-19 02:29] VITALS: BP 180/88; PULSE 69; RESP 18; O2SAT 98
== END 2025-05-19 02:43 | disposition home or self-care (01) ==
PROVIDERS: Emergency Provider Emergency Medicine; PCP Family Medicine
DX: I12.0 Hypertensive chronic kidney disease with stage 5 chronic kidney disease or end stage renal disease (principal); N18.6 End stage renal disease; Z99.2 Dependence on renal dialysis
CPT/HCPCS: 36415; 80053; 83615; 83735; 83880; 84484; 85025; 85610; 85730; 93005; 96374; 96376; 99283; J0360; J0780; A9270

== ENCOUNTER 2025-05-27 11:48 | Emergency (ER) | payer MEDICAID, SELFPAY ==
[2025-05-27 11:50] VITALS: BP 106/59; PULSE 67; RESP 18; TEMP 36.8; O2SAT 100
--- NOTE | 2025-05-27 11:52 | EKG_ITS ---
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
--- NOTE | 2025-05-27 11:53 | PD.EDADULT ---
ED General RME/HPI General Chief complaint: Weakness Stated complaint: WEAKNESS Time Seen by Provider: 05/27/25 11:50 Arrival date/time: 05/27/25 11:48 40-year-old male patient with a significant history of hypertension, diabetes mellitus end-stage renal disease, was brought in by EMS for evaluation regarding hypotension. Apparently patient had dialysis today, they were able to remove 3.9 L of fluid and was given clonidine in the dialysis center due to elevated blood pressure. When the patient arrived he took nifedipine XL, 90 mg, and labetalol. After few minutes patient noted generalized body weakness, not feeling well, and called EMS. When EMS arrived patient's blood pressure was noted to be in the low 100s. Patient denies any chest pain no fever no vomiting no cough no abdominal pain Related Data Home Medications ?Medication ?Instructions ?Recorded ?Confirmed insulin glargine 100 unit/mL (3 60 unit subcut QAM 08/12/23 04/15/24 mL) subcutaneous pen (Basaglar KwikPen U-100 Insulin) calcium acetate 667 mg tablet 667 mg PO TID 10/10/23 04/15/24 insulin glargine 100 unit/mL (3 40 unit subcut HS PRN Hyperglycemia 12/24/23 04/15/24 mL) subcutaneous pen (Basaglar KwikPen U-100 Insulin) labetalol 200 mg tablet 200 mg PO BID 12/24/23 04/15/24 nifedipine 30 mg tablet,extended 30 mg PO HS 12/24/23 04/15/24 release 24 hr vitamin B complex-vitamin C-folic 1 tab PO QDAY 12/24/23 04/15/24 acid 0.8 mg tablet (Yuliana-Ethel) Previous Rx's ?Medication ?Instructions ?Recorded mupirocin 2 % topical ointment 1 applic topical BID On the foot 09/22/24 and ankle wound #22 grams clonidine HCl 0.2 mg tablet 0.2 mg PO BID PRN Blood pressure 02/17/25 above 170/100 #10 tabs acetaminophen 300 mg-codeine 30 mg 2 tab PO Q8H PRN pain #20 tabs 03/28/25 tablet clonidine HCl 0.2 mg tablet 0.2 mg PO BID HTN #20 tabs 05/19/25 nifedipine 90 mg tablet,extended 90 mg PO QDAY #30 tabs 05/19/25 release 24 hr (Procardia XL) Allergies Allergy/AdvReac Type Severity Reaction Status Date / Time No Known Allergies Allergy Verified 05/18/25 22:48 Review of Systems Review of Systems Narrative Review of Systems: Review of system reviewed and within normal limits except mentioned in HPI ED Exam Narrative Physical exam: VITAL SIGNS: Reviewed. GENERAL APPEARANCE: Alert and interactive, follows commands, no acute distress, HEAD AND FACE: Non-traumatic. ENT: PERRL, pink conjunctivitis, eyelid no trauma, Mucous membrane moist. NECK: Supple, nontender, no nuchal rigidity. CHEST: No tenderness, no crepitus, no paradoxical movement, no retractions. LUNGS: Clear, well ventilated, symmetric, no rales, no wheezing, no ronchi, no stridor, good breath sounds bilaterally. HEART: Regular rate, regular rhythm, no murmur, no gallops. ABDOMEN: Soft, positive bowel sounds, nondistended, no guarding, nontender, no rebound, no masses, RECTAL: Deferred. GENITAL: Deferred. NEUROLOGICAL: Gross motor function intact sensory function intact, Appropriate for age. MUSCULOSKELETAL: low back nontender, full range of motion. EXTREMITIES: Nontender, full range of motion. Thrill noted on the left upper extremity, with dressing + positive AV fistula SKIN: Color pink, dry, no rash, no lacerations, no abrasions, no contusions. LYMPHATICS: Deferred. Course Quality Measures none Orders Category Date Time Status EKG (ED ONLY) *Do not use* NOW Care 05/27/25 11:52 Completed EKG (ED Only) Stat Exams 05/27/25 11:52 Draft CBC [CBC] Stat Lab 05/27/25 12:02 Completed CMP [Comprehensive Metabolic Panel] Stat Lab 05/27/25 12:02 Completed Insulin Regular Med 05/27/25 12:41 Discontinued 5 unit SC X1 ONE Vital Signs Vital signs: Vital Signs Temperature 98.2 F 05/27/25 11:50 Pulse Rate 67 05/27/25 11:50 Respiratory Rate 18 05/27/25 11:50 Blood Pressure 106/59 L 05/27/25 11:50 Pulse Oximetry (%) 100 05/27/25 11:50 Oxygen Delivery Method Room Air 05/27/25 11:50 Discharge Plan Plan Patient Disposition: HOME (Self Care) Discharge Disposition comment: Stable Prescriptions/Referrals Prescriptions/Med Rec: No Action insulin glargine [Basaglar KwikPen U-100 Insulin] 100 unit/mL (3 mL) insulin pen 60 unit SUBCUT QAM Patient Comments: INJECT 60 UNITS SUBCUTANEOUSLY TWICE A DAY Rx Instructions: per patient takes 30-50units BID depending on his sugar levels calcium acetate 667 mg Tablet 667 mg PO TID nifedipine 30 mg tablet extended release 24hr 30 mg PO HS Patient Comments: TAKE 2 TABLETS BY MOUTH EVERY DAY labetalol 200 mg tablet 200 mg PO BID Yuliana-Ethel 0.8 mg tablet 1 tab PO QDAY Patient Comments: TAKE 1 TABLET BY MOUTH EVERY DAY insulin glargine [Basaglar KwikPen U-100 Insulin] 100 unit/mL (3 mL) Insulin Pen 40 unit SUBCUT HS PRN (Reason: Hyperglycemia) nifedipine [Procardia XL] 90 mg tablet extended release 24hr 90 mg PO QDAY Qty: 30 0RF clonidine HCl 0.2 mg tablet 0.2 mg PO BID Qty: 20 0RF Rx Instructions: Take clonidine as needed for systolic blood pressures greater than 170/100. May take up to twice daily mupirocin 2 % ointment 1 applic topical BID Qty: 22 0RF clonidine HCl 0.2 mg tablet 0.2 mg PO BID PRN (Reason: Blood pressure above 170/100) Qty: 10 0RF Rx Instructions: Take 1 tablet if blood pressures still elevated in the 170s/100s after you have taken your antihypertensive medications. acetaminophen-codeine 300-30 mg tablet 2 tab PO Q8H MDD 6 PRN (Reason: pain) Qty: 20 0RF Referrals: Reagan Sultana MD [Primary Care Provider, Family Practice] - In 1 week Problem List Clinical Impression: Acute hypotension, Hyperglycemia due to type 2 diabetes mellitus Patient/Caregiver Discharge Instructions Discharge Activity: activity as tolerated Education Materials: ED Diet: Diabetes Additional Instructions: Thank you for the opportunity for serving you today. You are stable for discharged . You are advised to: Follow-up with your PCP in 1 to 2 days Return to ED for worsening of symptoms Print Language: Faroese Stand Alone Forms: Zaira Award Info., Patient Portal Info Letter PA/TYPE INSPECTOR Supervising Physician PA/TYPE INSPECTOR Supervising Physician: MD Ramos MDM Narrative MDM hospital course (for use when minimal MDM required): 05/27/25 11:48 40-year-old male patient with a significant history of hypertension, diabetes mellitus end-stage renal disease, was brought in by EMS for evaluation regarding hypotension. Apparently patient had dialysis today, they were able to remove 3.9 L of fluid and was given clonidine in the dialysis center due to elevated blood pressure. When the patient arrived he took nifedipine XL, 90 mg, and labetalol. After few minutes patient noted generalized body weakness, not feeling well, and called EMS. When EMS arrived patient's blood pressure was noted to be in the low 100s. Patient denies any chest pain no fever no vomiting no cough no abdominal pain EKG shows sinus rhythm with a ventricular rate of 67 bpm, no ST segment elevation depression noted. Patient laboratory workup is significant for blood sugar of 434, was given 5 units of regular insulin subcu, went down to 375 patient is not showing any sign of diabetic ketoacidosis. Patient verbalized complete resolution of symptoms, latest blood pressure was noted to be 142/73, no more sign of hypotension, ambulatory with no recurrence of dizziness. Stable discharge home Medication Administration(s) Medication Administration History Discontinued Medications Insulin Human Regular (Insulin Hum Regular 1 Unit/0.01 Ml (Per Unit)) 5 unit SC X1 ONE Stop: 05/27/25 12:42 Last Admin: 05/27/25 13:14 Dose: 5 unit Documented By: ROBBIN Co-signed By: PETTY
[2025-05-27 12:02] VITALS: BMI 27.7
--- NOTE | 2025-05-27 12:04 | PC.NURSE ---
lab at bedside for blood draw
[2025-05-27 12:15] LABS: Basophils # (Auto) 0.1 Thou/mm3 (0.0-0.2); Basophils % (Auto) 1 % (0-2.5); Eosinophils # (Auto) 0.1 Thou/mm3 (0.0-0.5); Eosinophils % (Auto) 2 % (0-10); Hematocrit 36.5 % (41.0-53.0); Hemoglobin 12.1 g/dL (13.5-16.0); Immature Granulocytes Auto 0.02 Thou/mm3 (0.00-0.00); Lymphocytes # (Auto) 1.5 Thou/mm3 (1.0-4.8); Lymphocytes % (Auto) 23 % (10-50); Mean Corpuscular HGB Conc 33.2 g/dl (31.0-37.0); Mean Corpuscular Hemoglobin 26.5 pg (25.0-35.0); Mean Corpuscular Volume 80 fL (80-100); Monocytes # (Auto) 0.5 Thou/mm3 (0.0-0.8); Monocytes % (Auto) 7 % (0-12); Neutrophils # (Auto) 4.3 Thou/mm3 (1.8-7.7); Neutrophils % (Auto) 67 % (37-80); Nucleated Red Blood Cell # 0.00 Thou/mm3 (0.00-0.00); Nucleated Red Blood Cell % 0 /100 WBC (0); Platelet Count 152 Thou/mm3 (140-440); RDW Standard Deviation 39.0 fL (35.1-43.9); Red Blood Count 4.57 Miln/mm3 (4.50-5.90); White Blood Count 6.5 Thou/mm3 (3.8-10.6)
[2025-05-27 12:16] VITALS: BP 113/63; PULSE 68; RESP 18; O2SAT 100
[2025-05-27 12:35] LABS: Alanine Aminotransferase 22 U/L (10-49); Albumin, Serum 5.0 gm/dL (3.5-5.0); Albumin/Globulin Ratio 1.6 (1.2-2.2); Alkaline Phosphatase 177 U/L (46-116); Anion Gap 11 (7-16); Aspartate Amino Transferase 25 U/L (0-34); BUN/Creatinine Ratio 4 Ratio (12-20); Bilirubin,Total 0.6 mg/dL (0.3-1.2); Blood Urea Nitrogen 19 mg/dL (9-23); Calcium 8.7 mg/dL (8.3-10.6); Calcium (Corrected) 8.7 mg/dL (8.5-10.1); Carbon Dioxide 33.2 mMol/L (20.0-31.0); Chloride 92 mMol/L (98-107); Creatinine (Component) 5.0 mg/dL (0.6-1.3); Estimated Creatinine Clearance 19.5 mL/min (>60); Globulin 3.1 gm/dL (2.3-3.5); Osmolality,Calculated 293 (275-295); Potassium 4.2 mMol/L (3.4-5.1); Sodium 136 mMol/L (136-145); Total Protein 8.1 gm/dL (5.7-8.2); eGFR 14 See Note
[2025-05-27 12:37] LABS: Glucose 434 mg/dL (74-106)
[2025-05-27] MEDS: INSULIN HUM REGULAR 1 UNIT/0.01 ML (PER UNIT) 5 UNIT SC (13:14)
[2025-05-27 13:17] VITALS: BP 130/71; PULSE 69; RESP 18; O2SAT 100
[2025-05-27 14:45] VITALS: BP 142/73; PULSE 70; RESP 19; TEMP 36.6; O2SAT 100
[2025-05-27 15:39] VITALS: BP 143/81; PULSE 70; O2SAT 100
== END 2025-05-27 15:45 | disposition home or self-care (01) ==
PROVIDERS: Nurse Practitioner Family; Emergency Provider Family Medicine; PCP Family Medicine
DX: E11.65 Type 2 diabetes mellitus with hyperglycemia (principal); I95.9 Hypotension, unspecified; E11.22 Type 2 diabetes mellitus with diabetic chronic kidney disease; I12.0 Hypertensive chronic kidney disease with stage 5 chronic kidney disease or end stage renal disease; N18.6 End stage renal disease; Z99.2 Dependence on renal dialysis
CPT/HCPCS: 36415; 80053; 85025; 93005; 99283; J1815

== ENCOUNTER 2025-06-12 02:32 | Emergency (ER) | payer MEDICAID, SELFPAY ==
[2025-06-12] VITALS (7 sets, daily range): BP systolic 146–199; BP diastolic 65–107; PULSE 76–85; RESP 17–24; TEMP 36.7–37.6; O2SAT 88–98
--- NOTE | 2025-06-12 02:48 | EKG_ITS ---
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
--- NOTE | 2025-06-12 02:48 | XR_ITS ---
EXAMINATION: AP chest single view TECHNIQUE: AP portable upright chest single view Date and time: June 12, 2025, 0321 hours INDICATIONS: Shortness of breath beginning 3 hours ago. FINDINGS: Mild enlargement cardiac contour Moderate vascular congestion The film is underpenetrated Osseous structures are intact Impression: Suspicious for early heart failure, clinical correlation advised
--- NOTE | 2025-06-12 03:04 | PD.EDADULT ---
ED General RME/HPI General Chief complaint: Nausea/Vomiting/Diarrhea Stated complaint: VOMITING X 1 HR. Time Seen by Provider: 06/12/25 02:46 Arrival date/time: 06/12/25 02:32 Related Data Home Medications ?Medication ?Instructions ?Recorded ?Confirmed insulin glargine 100 unit/mL (3 60 unit subcut QAM 08/12/23 04/15/24 mL) subcutaneous pen (Basaglar KwikPen U-100 Insulin) calcium acetate 667 mg tablet 667 mg PO TID 10/10/23 04/15/24 insulin glargine 100 unit/mL (3 40 unit subcut HS PRN Hyperglycemia 12/24/23 04/15/24 mL) subcutaneous pen (Basaglar KwikPen U-100 Insulin) labetalol 200 mg tablet 200 mg PO BID 12/24/23 04/15/24 nifedipine 30 mg tablet,extended 30 mg PO HS 12/24/23 04/15/24 release 24 hr vitamin B complex-vitamin C-folic 1 tab PO QDAY 12/24/23 04/15/24 acid 0.8 mg tablet (Yuliana-Ethel) Previous Rx's ?Medication ?Instructions ?Recorded mupirocin 2 % topical ointment 1 applic topical BID On the foot 09/22/24 and ankle wound #22 grams clonidine HCl 0.2 mg tablet 0.2 mg PO BID PRN Blood pressure 02/17/25 above 170/100 #10 tabs acetaminophen 300 mg-codeine 30 mg 2 tab PO Q8H PRN pain #20 tabs 03/28/25 tablet clonidine HCl 0.2 mg tablet 0.2 mg PO BID HTN #20 tabs 05/19/25 nifedipine 90 mg tablet,extended 90 mg PO QDAY #30 tabs 05/19/25 release 24 hr (Procardia XL) Allergies Allergy/AdvReac Type Severity Reaction Status Date / Time No Known Allergies Allergy Verified 05/18/25 22:48 ED Exam Narrative Physical exam: Physical Exam: GENERAL: Awake, answering questions appropriately, appears older than stated age HEENT: NC/AT. Moist mucosa. PERRLA/EOMI. CARDIO: Heart RRR, no obvious murmurs, no JVD. PULM: No coughing but appears visibly short of breath requiring 4 L supplemental oxygen. Lungs CTA B/L. GI: Abdomen soft, NT/ND, +BS. SKIN/MSK/EXT: Left brachiocephalic AV fistula patent with thrill. Left foot has a wound on the medial, first cuneiform region without erythema or exudation. Discoloration noted on right anterior steward. +Pedal pulses present B/L. NEURO: Oriented x3, Moves extremities x4, no focal neurologic deficits noted. Course Quality Measures none Orders Category Date Time Status Bedside Blood Glucose NOW Care 06/12/25 02:50 Completed Bedside Blood Glucose NOW Care 06/12/25 06:03 Completed EKG (ED ONLY) *Do not use* NOW Care 06/12/25 02:49 Completed Insert IV NOW Care 06/12/25 02:48 Completed Consult to Nephrology Stat Cons 06/12/25 03:56 Ordered CXRP [XR chest 1V portable] Stat Exams 06/12/25 02:48 Taken EKG (ED Only) Stat Exams 06/12/25 02:48 Draft XR foot AP & LAT LTD LT 2V Stat Exams 06/12/25 03:06 Taken ABG [Arterial Blood Gas] Stat Lab 06/12/25 05:30 Completed CBC Stat Lab 06/12/25 03:05 Completed CMP [Comprehensive Metabolic Panel] Stat Lab 06/12/25 03:05 Completed Lactate (Lactic Acid) Stat Lab 06/12/25 04:29 Completed Insulin Regular Med 06/12/25 04:21 Discontinued 10 unit IV X1 ONE Labetalol* IV [Trandate* IV] Med 06/12/25 03:05 Discontinued 10 mg IVP X1 ONE Labetalol* IV [Trandate* IV] Med 06/12/25 03:49 Discontinued 10 mg IVP X1 ONE Vital Signs Vital signs: Vital Signs Temperature 99.1 F 06/12/25 02:40 Pulse Rate 85 06/12/25 02:40 Respiratory Rate 19 06/12/25 02:40 Blood Pressure 199/91 H 06/12/25 02:40 Pulse Oximetry (%) 88 L 06/12/25 02:40 Oxygen Delivery Method Room Air 06/12/25 02:40 Discharge Plan Plan Patient Disposition: HOME (Self Care) Discharge Disposition comment: Please go to dialysis session as scheduled If your shortness of breath worsen or if you develop fever/chills or chest pain - please come back to the ED immediately. Patient condition on transfer: Stable Prescriptions/Referrals Prescriptions/Med Rec: No Action insulin glargine [Basaglar KwikPen U-100 Insulin] 100 unit/mL (3 mL) insulin pen 60 unit SUBCUT QAM Patient Comments: INJECT 60 UNITS SUBCUTANEOUSLY TWICE A DAY Rx Instructions: per patient takes 30-50units BID depending on his sugar levels calcium acetate 667 mg Tablet 667 mg PO TID nifedipine 30 mg tablet extended release 24hr 30 mg PO HS Patient Comments: TAKE 2 TABLETS BY MOUTH EVERY DAY labetalol 200 mg tablet 200 mg PO BID Yuliana-Ethel 0.8 mg tablet 1 tab PO QDAY Patient Comments: TAKE 1 TABLET BY MOUTH EVERY DAY insulin glargine [Basaglar KwikPen U-100 Insulin] 100 unit/mL (3 mL) Insulin Pen 40 unit SUBCUT HS PRN (Reason: Hyperglycemia) nifedipine [Procardia XL] 90 mg tablet extended release 24hr 90 mg PO QDAY Qty: 30 0RF clonidine HCl 0.2 mg tablet 0.2 mg PO BID Qty: 20 0RF Rx Instructions: Take clonidine as needed for systolic blood pressures greater than 170/100. May take up to twice daily mupirocin 2 % ointment 1 applic topical BID Qty: 22 0RF clonidine HCl 0.2 mg tablet 0.2 mg PO BID PRN (Reason: Blood pressure above 170/100) Qty: 10 0RF Rx Instructions: Take 1 tablet if blood pressures still elevated in the 170s/100s after you have taken your antihypertensive medications. acetaminophen-codeine 300-30 mg tablet 2 tab PO Q8H MDD 6 PRN (Reason: pain) Qty: 20 0RF Problem List Clinical Impression: ESRD (end stage renal disease) Patient/Caregiver Discharge Instructions Print Language: Botswanan Stand Alone Forms: Zaira Award Info., Patient Portal Info Letter MDM Narrative MDM hospital course (for use when minimal MDM required): HPI: 40-year-old male with past medical history of type 1 diabetes on insulin, ESRD (on HD ), near blindness bilaterally and hypertension presenting to the ED on 06/12 with generalized chills, feeling unwell with vomiting. Patient states that he woke up at night with generalized chills and did not feel well; moreover, he had an episode of vomiting. He also states that he has had a left lower extremity wound that he is worried is infected as he has a history of osteomyelitis in the past. Physical examination as noted; patient presented in hypertensive urgency with a blood pressure of 199/91, heart rate of 85, respiratory rate of 19, nearly febrile with a temperature of 99.6 and saturating 95 on 4 L nasal cannula. Laboratory findings are positive for mild leukocytosis with a WBC of 11.8 with left shift 88% neutrophil, chronic microcytic anemia likely from ESRD status, hyponatremia, hypochloremia evidence of ESRD, hyperglycemia with a glucose of 680, anion gap of 15. Chest and foot x-ray have been ordered pending radiology read, EKG shows normal sinus rhythm without any concerning ST changes noted. Differentials for patient's generalized chills/vomiting include: requiring dialysis session, possible underlying infection, enteritis, possible DKA Ordered ABG, lactic acid 1 treating hyperglycemia with IV insulin regular 10 units x 1. Will consult nephrology and update them at the patient will require dialysis as scheduled on Saturday, at 6 AM per patient Regarding patient's hypertensive urgency have trialed IV labetalol 10 mg x 2 for lower blood pressure including systolic less than 180 and diastolic less than 105 Chest x-ray and foot x-ray are pending official radiology reads Will continue monitoring the patient Attending physician Dr. Knight has been made aware Bjorn Tomlin DO PGY-2 Internal Medicine - GME Medication Administration(s) Medication Administration History Discontinued Medications Insulin Human Regular (Insulin Hum Regular 1 Unit/0.01 Ml (Per Unit)) 10 unit IV X1 ONE Stop: 06/12/25 04:22 Last Admin: 06/12/25 04:31 Dose: 10 unit Documented By: GURU Co-signed By: GIL Labetalol HCl (Labetalol Inj 5 Mg/Ml Vial 4 Ml) 10 mg IVP X1 ONE Stop: 06/12/25 03:06 Last Admin: 06/12/25 03:17 Dose: 10 mg Documented By: GURU Labetalol HCl (Labetalol Inj 5 Mg/Ml Vial 4 Ml) 10 mg IVP X1 ONE Stop: 06/12/25 03:50 Last Admin: 06/12/25 04:16 Dose: 10 mg Documented By: GURU
--- NOTE | 2025-06-12 03:06 | XR_ITS ---
EXAMINATION: Left foot 2 views TECHNIQUE: AP lateral left foot 2 views Date and time: June 12, 2025, 0324 hours, comparison 02/28/2024 INDICATIONS: Nonhealing wounds involving the foot today. FINDINGS: Prominent osteopenia Soft tissue vascular calcification No shamar cortical bone destruction IMPRESSION: No shamar cortical bone destruction
[2025-06-12 03:22] LABS: Basophils # (Auto) 0.0 Thou/mm3 (0.0-0.2); Basophils % (Auto) 0 % (0-2.5); Eosinophils # (Auto) 0.1 Thou/mm3 (0.0-0.5); Eosinophils % (Auto) 1 % (0-10); Hematocrit 32.2 % (41.0-53.0); Hemoglobin 10.7 g/dL (13.5-16.0); Immature Granulocytes Auto 0.03 Thou/mm3 (0.00-0.00); Lymphocytes # (Auto) 0.9 Thou/mm3 (1.0-4.8); Lymphocytes % (Auto) 7 % (10-50); Mean Corpuscular HGB Conc 33.2 g/dl (31.0-37.0); Mean Corpuscular Hemoglobin 26.4 pg (25.0-35.0); Mean Corpuscular Volume 79 fL (80-100); Monocytes # (Auto) 0.5 Thou/mm3 (0.0-0.8); Monocytes % (Auto) 4 % (0-12); Neutrophils # (Auto) 10.4 Thou/mm3 (1.8-7.7); Neutrophils % (Auto) 88 % (37-80); Nucleated Red Blood Cell # 0.00 Thou/mm3 (0.00-0.00); Nucleated Red Blood Cell % 0 /100 WBC (0); Platelet Count 145 Thou/mm3 (140-440); RDW Standard Deviation 39.8 fL (35.1-43.9); Red Blood Count 4.06 Miln/mm3 (4.50-5.90); White Blood Count 11.8 Thou/mm3 (3.8-10.6)
[2025-06-12 03:44] LABS: Alanine Aminotransferase 18 U/L (10-49); Albumin, Serum 4.8 gm/dL (3.5-5.0); Albumin/Globulin Ratio 1.4 (1.2-2.2); Alkaline Phosphatase 203 U/L (46-116); Anion Gap 15 (7-16); Aspartate Amino Transferase 22 U/L (0-34); BUN/Creatinine Ratio 5 Ratio (12-20); Bilirubin,Total 0.6 mg/dL (0.3-1.2); Blood Urea Nitrogen 39 mg/dL (9-23); Calcium 8.1 mg/dL (8.3-10.6); Calcium (Corrected) 8.1 mg/dL (8.5-10.1); Carbon Dioxide 26.4 mMol/L (20.0-31.0); Chloride 88 mMol/L (98-107); Creatinine (Component) 7.9 mg/dL (0.6-1.3); Globulin 3.4 gm/dL (2.3-3.5); Osmolality,Calculated 300 (275-295); Potassium 4.0 mMol/L (3.4-5.1); Sodium 129 mMol/L (136-145); Total Protein 8.2 gm/dL (5.7-8.2); eGFR 8 See Note
[2025-06-12 03:46] LABS: Glucose 680 mg/dL (74-106)
[2025-06-12] MEDS: INSULIN HUM REGULAR 1 UNIT/0.01 ML (PER UNIT) 10 UNIT IV (04:31)
[2025-06-12 04:49] LABS: Lactate (Lactic Acid) 1.1 mMol/L (0.4-2.0)
[2025-06-12 05:40] LABS: Base Excess 3 (-3-3); HCO3 27 mEq/L (20-26); Inspired Oxygen, FIO2 21 %; O2 Saturation 89 % (91-98); PCO2 42 mmHg (32.0-48.0); pH, Arterial 7.42 (7.35-7.45)
[2025-06-12 05:45] LABS: Allen Test Performed/OK; Puncture Site Right Radial
[2025-06-12 05:46] LABS: PO2 56 mmHg (83-108)
== END 2025-06-12 06:18 | disposition home or self-care (01) ==
LOC: SERX 06:07
PROVIDERS: Emergency Provider Emergency Medicine; PCP Family Medicine
DX: I12.0 Hypertensive chronic kidney disease with stage 5 chronic kidney disease or end stage renal disease (principal); E10.22 Type 1 diabetes mellitus with diabetic chronic kidney disease; N18.6 End stage renal disease; R94.31 Abnormal electrocardiogram [ECG] [EKG]; Z79.4 Long term (current) use of insulin; E10.65 Type 1 diabetes mellitus with hyperglycemia; D50.0 Iron deficiency anemia secondary to blood loss (chronic); I16.0 Hypertensive urgency; Z99.2 Dependence on renal dialysis
CPT/HCPCS: 36415; 36600; 71045; 73620; 80053; 82803; 83605; 85025; 93005; 96374; 96376; 99283; J1815; J1920

== ENCOUNTER → 2025-06-23 | Outpatient (CLI) | payer MEDICAID, SELFPAY | END | disposition home or self-care (01) | PROVIDERS: PCP Internal Medicine; Referring Provider Internal Medicine; Visit Provider Student in an Organized Health Care Education/Training Program | DX: E11.621 Type 2 diabetes mellitus with foot ulcer (principal); L97.421 Non-pressure chronic ulcer of left heel and midfoot limited to breakdown of skin; L97.502 Non-pressure chronic ulcer of other part of unspecified foot with fat layer exposed; L97.522 Non-pressure chronic ulcer of other part of left foot with fat layer exposed; L97.422 Non-pressure chronic ulcer of left heel and midfoot with fat layer exposed; L97.529 Non-pressure chronic ulcer of other part of left foot with unspecified severity; E11.40 Type 2 diabetes mellitus with diabetic neuropathy, unspecified; Z99.2 Dependence on renal dialysis; J45.909 Unspecified asthma, uncomplicated; N18.6 End stage renal disease; K74.60 Unspecified cirrhosis of liver; I11.9 Hypertensive heart disease without heart failure; Z79.4 Long term (current) use of insulin | CPT/HCPCS: 97597; 99213; A9270; G0463 ==

== ENCOUNTER 2025-06-29 17:00 | Inpatient (IN) | payer MEDICAID, SELFPAY ==
[2025-06-29] VITALS (35 sets, daily range): BP systolic 178–230; BP diastolic 88–157; PULSE 76–99; RESP 14–28; TEMP 37.3–38.3; O2SAT 93–100; BMI 29.2
--- NOTE | 2025-06-29 17:48 | XR_ITS ---
EXAMINATION: AP chest single view TECHNIQUE: AP portable upright chest single view Date and time: June 29, 2025, 1754 hours, comparison June 12, 2025 INDICATIONS: Shortness of breath today. FINDINGS: Mild CHF Mild enlargement cardiac contour. Central prominent vascular congestion with perihilar basilar edema Small left pleural effusion. Adequate bone density IMPRESSION: Mild CHF Consider superimposed pneumonia at the lung bases
--- NOTE | 2025-06-29 17:48 | EKG_ITS ---
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
--- NOTE | 2025-06-29 17:49 | EDNOTE_ITS ---
ED General RME/HPI General Chief complaint: Flu Like Symptoms Stated complaint: COUGH, SOB X 1WK Time Seen by Provider: 06/29/25 17:43 Arrival date/time: 06/29/25 17:00 CC: Shortness of breath x 1 week with progressive increase in severity. The patient states he has had fluid on his lung before. Patient is dialyzed on Tuesdays and Saturdays however this week he is dialyzed Saturday and Saturday. Patient is speaking in 4-5 word sentences persistently coughing. And is somewhat pale. Dr. Gomez is his manager story. Patient currently denies chest pain. No fever with initial vital signs. Related Data Home Medications ?Medication ?Instructions ?Recorded ?Confirmed insulin glargine 100 unit/mL (3 60 unit subcut QAM 11/2804/15/24 mL) subcutaneous pen (Basaglar KwikPen U-100 Insulin) calcium acetate 667 mg tablet 667 mg PO TID 10/10/23 1 insulin glargine 100 unit/mL (3 40 unit subcut HS PRN Hyperglycemia 12/24/23 04/15/24 mL) subcutaneous pen (Basaglar KwikPen U-100 Insulin) labetalol 200 mg tablet 200 mg PO BID 12/24/2304/15 nifedipine 30 mg tablet,extended 30 mg PO HS 12/24/23 04/15/24 release 24 hr vitamin B complex-vitamin C-folic 1 tab PO QDAY 04/15/24 acid 0.8 mg tablet (Yuliana-Ethel) Previous Rx's ?Medication ?Instructions ?Recorded mupirocin 2 % topical ointment 1 applic topical BID On the foot 09/22/24 and ankle wound #22 grams clonidine HCl 0.2 mg tablet 0.2 mg PO BID PRN Blood pr essure 02/17/25 above 170/100 #10 tabs acetaminophen 300 mg-codeine 30 mg 2 tab PO Q8H PRN pa in #20 tabs 03/28/25 tablet clonidine HCl 0.2 mg tablet 0.2 mg PO BID HTN #20 tabs 05/19/25 nifedipine 90 mg tablet,extended 90 mg PO QDAY #30 tab s 05/19/25 release 24 hr (Procardia XL) Allergies Allergy/AdvReac Type Severity Reaction Status Date / Time No Known Allergies Allergy Verified 05/18/25 22:48 Review of Systems Review of Systems Narrative Review of Systems: GEN: No fever, no chills, no weight loss EYES: No discharge, no visual changes, no pain HEENT: No ear pain, no congestion, no sore throat PULM: + shortness of breath, no cough, no congestion CV: No chest pain, no dyspnea on exertion, no palpitations GI: No nausea, no vomiting, no diarrhea, no pain, no constipation : No frequency, no urgency, no dysuria MUSC/SKEL: No joint pain, no back pain SKIN: No rash PSYCH: No hallucinations, no depression HEME/LYMPH: No easy bleeding or bruising tendencies NEURO: No weakness, no headache Course Course Course Narrative: Patient's case clinical findings discussed with Dr. Gomez who agrees patient needs stat dialysis. Patient's case discussed with residents for Dr. Zavaleta who agreed to accept the patient for admission. Quality Measures none Orders Category Date Time Status Bedside COVID-19 Antigen Test NOW Care 06/29/25 17:50 Active Bedside Influenza A&B Antigen Test NOW Care 06/29/25 17:50 Completed Bilingual Sales Consultant STAT Care 06/29/25 19:03 Active Continuous Pulse Oximetry STAT Care 06/29/25 19:03 Active Dialysis [Hemodialysis] Urgent Care 06/29/25 20:03 Active EKG (ED ONLY) *Do not use* NOW Care 06/29/25 17:48 Completed In and Out Catheter X1PRN Care 06/29/25 19:03 Active Insert IV NOW Care 06/29/25 19:03 Active NPO STAT Care 06/29/25 19:03 Active Strict Intake and Output Routine Care 06/29/25 19:03 Ordered Consult to Nephrology Stat Cons 06/29/25 19:49 Ordered EKG (ED Only) Stat Exams 06/29/25 17:48 Draft US gall bladder Stat Exams 06/29/25 20:26 Ordered XR chest 1V Stat Exams 06/29/25 17:48 Completed B-Type Natriuretic Peptide Stat Lab 06/29/25 18:10 Completed B-Type Natriuretic Peptide Stat Lab 06/29/25 19:10 Completed Blood Culture (Lab) Stat Lab 06/29/25 19:10 Received CBC Stat Lab 06/29/25 18:10 Completed Comprehensive Metabolic Panel Stat Lab 06/29/25 18:10 Completed Drug Screen,Urine Stat Lab 06/29/25 17:48 Ordered LDH (Lactate Dehydrogenase) Stat Lab 06/29/25 18:10 Completed Lactate (Lactic Acid) Stat Lab 06/29/25 19:10 Completed Lactic Acid, 3 HR Stat Lab 06/29/25 22:16 Ordered Lipase Stat Lab 06/29/25 19:10 Completed Magnesium Stat Lab 06/29/25 18:10 Completed Partial Thromboplastin Time Stat Lab 06/29/25 18:10 Completed Phosphorous Stat Lab 06/29/25 19:10 Completed Procalcitonin Stat Lab 06/29/25 19:10 Completed Prothrombin Time with INR Stat Lab 06/29/25 18:10 Completed Troponin I Stat Lab 06/29/25 18:10 Completed Acetaminophen Ivpb [Ofirmev Inj] Med 06/29/25 19:05 Discontinued 1,000 mg in 100 ml IV NOW Acetaminophen Tab [Tylenol ES Tab] Med 06/29/25 19:17 Discontinued 1,000 mg PO X1 ONE Albumin Human-Kjda 25% Ivpb [Albuminex 25% Ivpb] Med 06/29/25 20:05 Active 25 gm in 100 ml IV Q30MIN Epoetin Adiel-Epbx Inj [Retacrit Inj] Med 06/29/25 23:30 Once 10,000 unit SC X1 ONE INSULIN LISPRO (AdmeLOG) [HumaLOG] Med 06/29/25 20:00 Discontinued 5 unit SC X1 ONE Insulin Degludec Inj Med 06/29/25 20:00 Discontinued 10 unit SC X1 ONE Labetalol* IV [Trandate IV] Med 06/29/25 20:14 Discontinued 10 mg IVP X1 ONE Nitroglycerin Oint 2% [Nitro-paste Oint 2%] Med 06/29/25 18:43 Discontinued 1 inch TOP X1 ONE Piper/Tazo 3.375 gm Premix [Zosyn] Med 06/29/25 19:07 Discontinued 3.375 gm in 50 ml IV X1 hydrALAZINE INJ [Apresoline Inj] Med 06/29/25 19:22 Discontinued 20 mg IVP X1 ONE BiPAP / CPAP NOW RT 06/29/25 19:48 Active Oxygen Delivery NOW RT 06/29/25 19:03 Active Vital Signs Vital signs: Vital Signs Temperature 99.6 F 06/29/25 17:33 Pulse Rate 87 06/29/25 17:33 Respiratory Rate 24 H 06/29/25 17:33 Blood Pressure 230/104 H 06/29/25 17:33 Pulse Oximetry (%) 95 06/29/25 17:33 Oxygen Delivery Method Room Air 06/29/25 17:33 Discharge Plan Plan Patient Disposition: Other Care w/in Hosp ([facility]) Patient condition on transfer: Stable Prescriptions/Referrals Prescriptions/Med Rec: No Action insulin glargine [Basaglar KwikPen U-100 Insulin] 100 unit/mL (3 mL) insulin pen 60 unit SUBCUT QAM Patient Comments: INJECT 60 UNITS SUBCUTANEOUSLY TWICE A DAY Rx Instructions: per patient takes 30-50units BID depending on his sugar levels calcium acetate 667 mg Tablet 667 mg PO TID nifedipine 30 mg tablet extended release 24hr 30 mg PO HS Patient Comments: TAKE 2 TABLETS BY MOUTH EVERY DAY labetalol 200 mg tablet 200 mg PO BID Yuliana-Ethel 0.8 mg tablet 1 tab PO QDAY Patient Comments: TAKE 1 TABLET BY MOUTH EVERY DAY insulin glargine [Basaglar KwikPen U-100 Insulin] 100 unit/mL (3 mL) Insulin Pen 40 unit SUBCUT HS PRN (Reason: Hyperglycemia) nifedipine [Procardia XL] 90 mg tablet extended release 24hr 90 mg PO QDAY Qty: 30 0RF clonidine HCl 0.2 mg tablet 0.2 mg PO BID Qty: 20 0RF Rx Instructions: Take clonidine as needed for systolic blood pressures greater than 170/100. May take up to twice daily mupirocin 2 % ointment 1 applic topical BID Qty: 22 0RF clonidine HCl 0.2 mg tablet 0.2 mg PO BID PRN (Reason: Blood pressure above 170/100) Qty: 10 0RF Rx Instructions: Take 1 tablet if blood pressures still elevated in the 170s/100s after you have taken your antihypertensive medications. acetaminophen-codeine 300-30 mg tablet 2 tab PO Q8H MDD 6 PRN (Reason: pain) Qty: 20 0RF Referrals: Reagan Sultana MD [Primary Care Provider, Family Practice] - In 1 week Problem List Clinical Impression: Acute respiratory distress, Fluid overload Patient/Caregiver Discharge Instructions Print Language: Portuguese Stand Alone Forms: Zaira Award Info., Patient Portal Info Letter PA/SPOT MACHINE OPERATOR Supervising Physician KAMILLE/MYRIAM Supervising Physician: Ilir Shields ENP [facility] Clinical Information Provided by: patient Medical Records reviewed [facility] Meds/Rx considered, not ordered None Labs/Rad/Tests considered, not ordered None Chronic Illness/Social Conditions Explain: ESRD on dialysis EKG Interpretation EKG #1: EKG Interpretation: EKG performed at 1806 shows a ventricular rate of 96 NE interval 123 QRS of 8 6 QTc of 421 this is sinus rhythm. When compared to an old EKG from June 09 there are no significant changes. Labs Labs: interpreted by me Lab(s) Interpretation(s): CBC shows a mild leukocytosis of 15.7 H&H of 12.0 and 35.6. Platelet count of 277. Coags within acceptable limits Lactic of 3.0 Pro-Melchor at 0.25 Lipase at 38. Imaging Imaging interpretation: interpreted by me Imaging Interpretation(s): Mild CHF possible superimposed pneumonia Medication Administration(s) Medication Administration History Epoetin Adiel (Epoetin Adiel-Epbx Inj 10,000 Unit/Ml Vial (Esrd)) 10,000 unit SC X1 ONE Stop: 06/29/25 23:31 Albumin Human (Albuminex 25% Ivpb) 25 gm in 100 mls @ 0 mls/hr IV Q30MIN PRN PRN Reason: To maintain SBP>90 Discontinued Medications Acetaminophen (Acetaminophen 500 Mg Tablet) 1,000 mg PO X1 ONE Stop: 06/29/25 19:18 Last Admin: 06/29/25 19:24 Dose: 1,000 mg Documented By: GIL Hydralazine HCl (Hydralazine Inj 20 Mg/Ml Vial) 20 mg IVP X1 ONE Stop: 06/29/25 19:23 Last Admin: 06/29/25 19:37 Dose: 20 mg Documented By: GIL Acetaminophen (Ofirmev Inj) 1,000 mg in 100 mls @ 250 mls/hr IV NOW ONE Stop: 06/29/25 19:28 Last Admin: 06/29/25 19:20 Dose: Not Given Documented By: GIL Non-Admin Reason: Cancelled by Provider Piperacillin/Tazobactam/Dextrose (Zosyn) 3.375 gm in 50 mls @ 100 mls/hr IV X1 ONE; Protocol Stop: 06/29/25 19:36 Last Infusion: 06/29/25 20:00 Dose: Infused Documented By: Admin: 06/29/25 19:24 Dose: 100 mls/hr Documented By: GIL Insulin Degludec (Insulin Degludec 5 Unit/0.05 Ml (Per 5 Units)) 10 unit SC X1 ONE Stop: 06/29/25 20:01 Insulin Human Lispro (Insulin Lispro (Admelog) 1 Unit/0.01 Ml Unit) 5 unit SC X1 ONE Stop: 06/29/25 20:01 Last Admin: 06/29/25 20:29 Dose: 5 unit Documented By: GIL Co-signed By: NENA Labetalol HCl (Labetalol Inj 5 Mg/Ml Vial 4 Ml) 10 mg IVP X1 ONE Stop: 06/29/25 20:15 Nitroglycerin (Nitroglycerin Oint 2% 1 Inch Packet) 1 inch TOP X1 ONE Stop: 06/29/25 18:44 Last Admin: 06/29/25 18:47 Dose: 1 inch Documented By: YINKA
[2025-06-29] MEDS: NITROGLYCERIN OINT 2% 1 INCH PACKET TOP (18:47)
[2025-06-29 18:57] LABS: Basophils # (Auto) 0.1 Thou/mm3 (0.0-0.2); Basophils % (Auto) 0 % (0-2.5); Eosinophils # (Auto) 0.1 Thou/mm3 (0.0-0.5); Eosinophils % (Auto) 0 % (0-10); Hematocrit 35.6 % (41.0-53.0); Hemoglobin 12.0 g/dL (13.5-16.0); Immature Granulocytes Auto 0.07 Thou/mm3 (0.00-0.00); Lymphocytes # (Auto) 0.8 Thou/mm3 (1.0-4.8); Lymphocytes % (Auto) 5 % (10-50); Mean Corpuscular HGB Conc 33.7 g/dl (31.0-37.0); Mean Corpuscular Hemoglobin 27.0 pg (25.0-35.0); Mean Corpuscular Volume 80 fL (80-100); Monocytes # (Auto) 0.7 Thou/mm3 (0.0-0.8); Monocytes % (Auto) 4 % (0-12); Neutrophils # (Auto) 14.0 Thou/mm3 (1.8-7.7); Neutrophils % (Auto) 89 % (37-80); Nucleated Red Blood Cell # 0.00 Thou/mm3 (0.00-0.00); Nucleated Red Blood Cell % 0 /100 WBC (0); Platelet Count 277 Thou/mm3 (140-440); RDW Standard Deviation 46.6 fL (35.1-43.9); Red Blood Count 4.44 Miln/mm3 (4.50-5.90); White Blood Count 15.7 Thou/mm3 (3.8-10.6)
[2025-06-29 19:07] LABS: INR 1.1 (0.9-1.3); Partial Thromboplastin Time 24.0 Seconds (22.0-36.0); Prothrombin Time 11.4 Seconds (9.0-12.2)
[2025-06-29 19:19] LABS: Alanine Aminotransferase < 7 U/L (10-49); Albumin, Serum 4.9 gm/dL (3.5-5.0); Albumin/Globulin Ratio 1.1 (1.2-2.2); Alkaline Phosphatase 297 U/L (46-116); Anion Gap 16 (7-16); Aspartate Amino Transferase 26 U/L (0-34); BUN/Creatinine Ratio 5 Ratio (12-20); Bilirubin,Total 1.8 mg/dL (0.3-1.2); Blood Urea Nitrogen 35 mg/dL (9-23); Calcium 9.7 mg/dL (8.3-10.6); Calcium (Corrected) 9.7 mg/dL (8.5-10.1); Carbon Dioxide 25.0 mMol/L (20.0-31.0); Chloride 89 mMol/L (98-107); Creatinine (Component) 6.4 mg/dL (0.6-1.3); Estimated Creatinine Clearance 15.6 mL/min (>60); Globulin 4.4 gm/dL (2.3-3.5); LDH (Lactate Dehydrogenase) 383 U/L (120-246); Magnesium 2.2 mg/dL (1.6-2.6); Osmolality,Calculated 292 (275-295); Potassium 4.9 mMol/L (3.4-5.1); Sodium 130 mMol/L (136-145); Total Protein 9.3 gm/dL (5.7-8.2); Troponin I < 0.020 ng/mL (0.0-0.045); eGFR 11 See Note
[2025-06-29 19:20] LABS: Lactate (Lactic Acid) 3.0 mMol/L (0.4-2.0)
[2025-06-29] MEDS: ACETAMINOPHEN 500 MG TABLET 1000 MG PO (19:24)
[2025-06-29] MEDS: PIPER/TAZO 3.375 GM PREMIX 3.375 GM/50 ML BAG IV (19:24)
[2025-06-29 19:37] LABS: B-Type Natriuretic Peptide 2948 pg/mL (0-100)
[2025-06-29] MEDS: hydrALAZINE INJ 20 MG/ML VIAL IVP (19:37)
[2025-06-29 19:45] LABS: B-Type Natriuretic Peptide > 3280 pg/mL (0-100)
[2025-06-29 19:47] LABS: Lipase 38 U/L (12-53); Phosphorous 3.0 mg/dL (2.4-5.1); Procalcitonin 0.25 ng/ml (0.0-0.49)
[2025-06-29 19:59] LABS: Glucose 533 mg/dL (74-106)
[2025-06-29] MEDS: INSULIN LISPRO (AdmeLOG) 1 UNIT/0.01 ML UNIT 5 UNIT SC (20:29)
--- NOTE | 2025-06-29 20:35 | PC.NURSE ---
PATIENT TAKEN TO DIALYSIS.
--- NOTE | 2025-06-29 20:51 | PD.NEPHCONS ---
History of Present Illness Data of Consult Consult date: 06/29/25 Requesting Physician: Yehuda Dang MD Primary Care Provider: Reagan Sultana MD Consult Narrative Reason for consult: ESRD History of present illness: Mr. Aguilar is a 40-year-old gentleman with a longstanding history of type 2 diabetes mellitus, ESRD on HD (Saturday, , Saturday), hypertension, diabetic retinopathy, diabetic neuropathy, and status post left fistula placement who presented to [facility] ED on 06/29/2025 for worsening shortness of breath and cough. Patient was admitted for management of hypertensive emergency with volume overload. Patient was seen by me at the dialysis unit and noted to have significant fluid overload. Patient admits to drinking fluid due to dry mouth. He has been noted on 10 pounds over from his dry weight. Patient moved recently from [facility] dialysis unit. Blood pressure in the ED was significantly elevated. Nephrology consultation requested the need for emergency dialysis. Patient currently seen on dialysis. Initial vitals significant for blood pressure of 230/104, respiratory rate 24, and O2 saturation 95% on 14 L oxy mask, patient would eventually have a temperature of 101 ?F Initial labs significant for WBC 15.7, hemoglobin 12.0, sodium of 130, chloride of 89, BUN of 35, creatinine of 6.4, glucose of 533, lactic acid of 3.0, total bilirubin of 1.8, alkaline phosphatase of 297, and BNP over 3280 Chest x-ray on 06/29 shows mild CHF with possible pneumonia in the lung bases Patient was placed on BiPAP given findings suggestive of fluid overload, which improved respirations and work of breathing Ultrasound of gallbladder on 06/29 shows mild gallbladder wall thickening without calculi or sludge with mild hepatomegaly and probable fatty liver infiltration In ED, patient was given topical nitroglycerin, 1 g of acetaminophen p.o., Zosyn 3.375 g, hydralazine 20 mg, insulin lispro 5 units, and had a dialysis session that removed about 4 L of fluid Past Surgical History: Left fistula placement Current Medication(s): Labetalol 200 mg twice daily Nifedipine 30 mg twice daily Clonidine 0.2 mg as needed for systolic blood pressure over 200 Insulin glargine 16 units in the morning and 40 units at night Allergies (w/ Reactions): NKDA Family History: Diabetes, hypertension, and kidney injury in his mother side of the family Labs reviewed. cc:: cc: Review of Systems Review of Systems Narrative Review of Systems: CONSTITUTIONAL: Patient complaining of weight gain HEENT: Patient has significant visual problems from diabetic retinopathy CARDIOVASCULAR: Patient denies any chest pain,. c/o shortness of breath, swelling in the lower extremities. PULMONARY: Patient c/o shortness of breath GASTROINTESTINAL: Patient denies any abdominal pain, constipation, nausea, vomiting, diarrhea. GENITOURINARY: Patient denies any urinary symptoms of burning or frequency or hematuria, denies any form in the urine. SKIN: wound in the left great toe. Right IJ dialysis catheter noted. + AVf MUSCULOSKELETAL: Pain in the left foot and toe NEUROLOGICAL: Denies any neurological problems of strokes, seizures or confusion. Denies any memory problems. Past Medical History Past Medical History NEUROLOGIC: Negative Neurological Disorders or Seizures CARDIAC: Positive Hypercholesterolemia and Hypertension; Negative Cardiac Disorders or Congestive Heart Failure RESPIRATORY: Negative Chronic Obstructive Pulmonary Disease (COPD) or Asthma GASTROINTESTINAL: Positive Hiatal Hernia and Gastroesophageal Reflux Disease; Negative Gastrointestinal Disorders, Hepatitis, Gall Bladder Disease, Gastrointestinal Bleed or Esophageal Varices GENITOURINARY: Positive Renal Disease and Dialysis MUSCULOSKELETAL: Negative Musculoskeletal Disorders or Fractures ENT: Positive Blind (right eye); Negative Cataracts, Ear Infection or Deafness ENDOCRINE: Positive Endocrine Disorders, Diabetes Mellitus Type 2 and Hyperthyroidism; Negative Diabetes Mellitus Type 1 HEMATOLOGIC: Negative Blood Disorders or Sickle Cell Disease PSYCHO/SOCIAL: Negative Schizophrenia OTHER HISTORY: Positive Falls, Blood Transfusions, MRSA and Chicken Pox; Negative Autoimmune Disease, Blood Transfusion Reaction, Anesthesia Reactions or Cancer Family History FAMILY HISTORY: Negative Family Cardiac Disorders or Family Anesthesia Reaction Surgical History SURGICAL: Positive Eye Surgery, Abdominal Surgery and of Back Surgery; Negative Cardiac Surgery, Nephrectomy or Joint Replacement OTHER SURGICAL HX: left arm fistula Social History SMOKING STATUS: Never smoker SUBSTANCE USE: marijuana Meds Home Medications and Allergies Home Medications ?Medication ?Instructions ?Recorded ?Confirmed ?Type insulin glargine 100 unit/mL (3 60 unit subcut QAM 08/12/23 06/30/25 History mL) subcutaneous pen (Basaglar KwikPen U-100 Insulin) calcium acetate 667 mg tablet 667 mg PO TID 10/10/23 06/30/25 History insulin glargine 100 unit/mL (3 40 unit subcut HS PRN Hyperglycemia 12/24/23 06/30/25 History mL) subcutaneous pen (Basaglar KwikPen U-100 Insulin) labetalol 200 mg tablet 200 mg PO BID 12/24/23 06/30/25 History nifedipine 30 mg tablet,extended 30 mg PO BID 12/24/23 06/30/25 History release 24 hr furosemide 40 mg tablet 40 mg PO DAILY 06/30/25 06/30/25 History Allergies Allergy/AdvReac Type Severity Reaction Status Date / Time No Known Allergies Allergy Verified 05/18/25 22:48 Exam Vital Signs Temp Pulse Resp BP Pulse Ox O2 Del Method O2 Flow Rate 37.4 C 84 18 195/95 H 98 Oxy Mask 14 06/29/25 20:41 06/29/25 20:41 06/29/25 20:41 06/29/25 20:41 06/29/25 20:41 06/29/25 19:00 06/29/25 19:00 FiO2 35 06/29/25 20:41 Narrative Exam GENERAL APPEARANCE: Patient on dialysis. NECK: Neck supple, no JVD or bruit CARDIOVASCULAR: Heart regular, no murmurs LUNGS/CHEST: Chest clear to auscultation. No rales, rhonchi, wheezing ABDOMEN: Soft, nontender, nondistended. No masses. Normal bowel sounds. EXTREMITIES: No edema, clubbing or cyanosis. SKIN: Wound noted in the left foot. Right IJ dialysis catheter noted. Exit site clean. MUSCULOSKELETAL: In bed NEUROLOGICAL : No neurological deficits, alert and awake Results Labs 07/01/25 05:15 07/01/25 05:15 Labs: Short CBC 06/29/25 Range/Units 18:10 WBC 15.7 H (3.8-10.6) Thou/mm3 Hgb 12.0 L (13.5-16.0) g/dL Hct 35.6 L (41.0-53.0) % Plt Count 277 D (140-440) Thou/mm3 BMP 06/29/25 18:10 Sodium 130 L Potassium 4.9 Chloride 89 L Carbon Dioxide 25.0 BUN 35 H Creatinine 6.4 H* Glucose 533 H* Calcium 9.7 Cardiac Enzymes 06/29/25 Range/Units 18:10 Troponin I < 0.020 (0.0-0.045) ng/mL Liver Function 06/29/25 Range/Units 18:10 Total Bilirubin 1.8 H (0.3-1.2) mg/dL AST 26 (0-34) U/L ALT < 7 L (10-49) U/L Alkaline Phosphatase 297 H (46-116) U/L Albumin 4.9 (3.5-5.0) gm/dL Assessment & Plan Additional Assessment & Plan Additional Plan: Mr. Aguilar is a 38-year-old gentleman with past medical history of insulin dependent diabetes, hypertension, and ESRD from diabetic nephropathy presented to the hospital for shortness of breath, hypertensive emergency. #ESRD/diabetic nephropathy Patient currently seen on dialysis. Tolerating dialysis without any problems. Hemodialysis for 3 hours, 2K, ultrafiltration 3-3.5 L, Epogen 6000, no heparin ordered. Plan of care discussed with the dialysis nurse. Please see dialysis flowsheet for further details. Next dialysis scheduled for tomorrow # Fluid overload On dialysis # Hypertension resume home medications Adjust BP meds # insulin dependent type 2 diabetes -Continue basal and sliding scale insulin -Continue diabetes education and close outpatient follow up for DM control # Anemia Patient will receive Epogen with the dialysis. Thank you Dr. Zavaleta for allowing me to participate in the care of Mr. Brooks
[2025-06-29 22:16] LABS: Reflex Lactate? Y
[2025-06-30] VITALS (74 sets, daily range): BP systolic 114–217; BP diastolic 63–109; PULSE 67–89; RESP 1–36; TEMP 36.4–36.9; O2SAT 94–100; BMI 28.5; BMI 28.4
--- NOTE | 2025-06-30 00:31 | PC.RT ---
pt tolerating cpap no distress noted a this time.
--- NOTE | 2025-06-30 01:15 | XR_ITS ---
Examination: Abdomen sonogram, Limited Date and time of exam: June 30, 2025, 0127 hours INDICATIONS: Abdominal pain beginning 1 year ago, worse the last month Technique: Real-time neil scale transabdominal sonographic images of the upper abdomen obtained. Findings: Negative for gallstones Gallbladder wall 0.40 cm Common bile duct 0.2 cm Pancreatic head 2.3 cm Liver 17.2 cm fatty infiltration Normal hepatopetal portal venous flow Patent IVC IMPRESSION: Mild gallbladder wall thickening, as clinically warranted, consider HIDA scan or MRCP follow-up
[2025-06-30 01:49] LABS: Lactic Acid, 3 HR 1.1 mMol/L (0.4-2.0)
--- NOTE | 2025-06-30 02:11 | ECHO_ITS ---
Patient Info Name: Todd Aguilar Age: 40 years : 1985 Gender: Male Ht: 168 cm Wt: 82 kg BSA: 1.97 m2 BP: 14 / 63 mmHg HR: 74 bpm Exam Date: 06/30/2025 7:17 AM Admit Date: 06/30/2025 Site: [facility] Room Number: [id number] Patient Status: I Exam Type: CA echo doppler complete [facility] Partner: Leena Cardoso Ordering Physician: Karsten Gaytan Study Info Indications Fluid overload, assess for CHF - Primary Location: [id number] Left Ventricular Outflow Tract Name Value Normal LVOT 2D LVOT Diameter 1.8 cm LVOT Doppler LVOT Peak Velocity 152 cm/s LVOT Mean Gradient 5 mmHg LVOT VTI 32 cm LVOT VTI/AV VTI Ratio 0.7 LVOT Stroke Volume 80 ml Pulmonic Valve Name Value Normal PV Doppler PV Peak Velocity 125 cm/s Mitral Valve Name Value Normal MV Doppler MV Mean Gradient 4 mmHg MV Decel Ashley 715 cm/s2 MV PHT 48 ms MV Area (PHT) 4.6 cm2 4.0-5.0 MV Area (Cont Eq VTI) 1.7 cm2 MV Diastolic Function MV E Peak Velocity 118 cm/s MV A Peak Velocity 69 cm/s MV E/A 1.7 MV Annular TDI MV Septal e' Velocity 5.8 cm/s MV E/e' (Septal) 20.5 MV Lateral e' Velocity 10.9 cm/s MV E/e' (Lateral) 10.8 MV e' Average 8.34 cm/s MV E/e' (Average) 15.6 Tricuspid Valve Name Value Normal TV Regurgitation Doppler TR Peak Velocity 302 cm/s Estimated PAP/RSVP RA Pressure 3 mmHg <=5 PA Systolic Pressure 39 mmHg <36 RV Systolic Pressure 39 mmHg <36 TV Annular TDI TV Lateral Shira s' Velocity 12.8 cm/s >=9.5 Aortic Valve Name Value Normal AV 2D/MM AV Cusp Sep (MM) 2.0 cm AV Doppler AV Peak Velocity 216 cm/s AV Mean Gradient 10 mmHg AV VTI 44 cm AV Area (Cont Eq VTI) 1.8 cm2 >=3.0 AV Area (Cont Eq Clay) 1.8 cm2 AV DI (Clay) 0.70 AV Regurgitation 2D LVOT Area 2.5 cm2 Ventricles Name Value Normal LV Dimensions 2D/MM IVS Diastolic Thickness (2D) 0.8 cm 0.6-1.0 LVID Diastole (2D) 5.2 cm 4.2-5.8 LVIW Diastolic Thickness (2D) 0.9 cm 0.6-1.0 LVID Systole (2D) 3.7 cm 2.5-4.0 LVOT Diameter 1.8 cm LV Mass (2D Cubed) 156.93 g 88.00-224.00 LV Mass Index (2D Cubed) 80 g/m2 49-115 Relative Wall Thickness (2D) 0.35 <=0.42 IVS/LVIW Diastolic Thickness (2D) 0.89 0.00-1.50 LV Fractional Shortening/Ejection Fraction 2D/MM LV Fractional Shortening (2D) 29 % 25-43 LV EF (2D Teichholz) 55 % RV Dimensions 2D/MM TV Lateral Shira s' Velocity 12.8 cm/s >=9.5 Atria Name Value Normal LA Dimensions LA Dimension (MM) 4.2 cm 3.0-4.0 LA Volume (4C A-L) 56 ml LA Volume (BP A-L) 63 ml Left Ventricle Left ventricular chamber dimension is normal. Left ventricular systolic function is normal with visually estimated ejection fraction of 50-55%. There is normal geometry noted in the left ventricle. Left ventricular segmental wall motion is normal. There is normal diastolic function in the left ventricle. Right Ventricle Right ventricular chamber dimension is normal. Right ventricular systolic function is normal. Left Atrium Left atrial chamber dimension is normal. Right Atrium Right atrial chamber dimension is mildly enlarged. Aortic Valve The aortic valve is trileaflet. There is no aortic valve sclerosis. There is no aortic valve stenosis with a peak velocity of 216 cm/s, mean gradient of 10 mmHg, and aortic valve area of 1.8 cm2. There is no aortic valve regurgitation. Pulmonic Valve The pulmonic valve is normal. There is no pulmonic valve stenosis. There is no pulmonic regurgitation. Mitral Valve The mitral valve has normal leaflets. There is no mitral valve stenosis. There is mild mitral valve regurgitation. Tricuspid Valve The tricuspid valve leaflets are normal. There is no tricuspid valve stenosis. There is mild to moderate tricuspid valve regurgitation. Pulmonary hypertension, estimated pulmonary arterial systolic pressure is 39 mmHg and systemic blood pressure of 14 mmHg in systole. Pericardium/Pleural The pericardium appears normal. There is no pericardial effusion. No pleural effusion visualized. Inferior Vena Cava Normal inferior vena cava with >50% collapse upon inspiration consistent with normal right atrial pressure, 3 mmHg. Aorta The aortic measurements are indexed to age and body surface area. The aortic root at the sinus of Valsalva is not well visualized. The prox ascending aorta is not well visualized. Summary 1. Left ventricle size is normal and systolic function is normal. Estimated ejection fraction is 50-55%. There is normal diastolic function. 2. Right ventricle chamber size is normal and systolic function is normal. Estimated RVSP is 39 mmHg. Mild LVH. 3. There is mild mitral valve regurgitation. 4. There is mild to moderate tricuspid valve regurgitation. 5. The left atrium is normal. The right atrium is mildly enlarged. 6. Normal IVC with estimated RA pressure 3 mmHg. 7. Prior study from 04/13/2024. Report Signatures Finalized by Ventura Kennedy on 07/02/2025 10:28 AM
--- NOTE | 2025-06-30 02:24 | PRELIM_ITS ---
Gallbladder ultrasound. June 30, 2025 0127 hours Clinical history: Transaminitis with elevated T. bili Comparison: None. Findings: Gallbladder wall is 4 mm thick. No gallbladder calculi or sludge. Common bile duct is 2 mm in diameter. Pancreas is unremarkable. Liver is 17.2 cm long, hyperechoic and mildly heterogeneous. No free fluid or mass. Main portal vein is antegrade. Inferior vena cava is unremarkable. Impression: Mild gallbladder wall thickening without calculi or sludge. Consider HIDA scan, if there is concern for chronic cholecystitis. Mild hepatomegaly. Probable fatty liver infiltration. Report Electronically Signed By: Jaime Campos 06/30/2025 2:24:25 AM [EST]
--- NOTE | 2025-06-30 02:26 | PD.RESHP ---
Documentation for date of: 06/30/25 HPI History of Present Illness Chief complaint: Shortness of breath and cough History of present illness: This patient is a 40-year-old male with a history of type I versus type 2 diabetes mellitus, ESRD on HD (Saturday, , Saturday), hypertension, diabetic retinopathy, diabetic neuropathy, and status post left fistula placement who presented to [facility] ED on 06/29 for worsening shortness of breath and cough. Patient was admitted for management of hypertensive emergency with volume overload. The patient stated that he started having shortness of breath that started about 2 weeks ago. The patient has not missed any dialysis sessions and does not believe he has been around anyone who has been sick unless someone was ill during his dialysis sessions. He did state that he drank a lot of water however. The patient's shortness of breath did seem to alleviate after his dialysis sessions, however shortness of breath has been worsening over time. The pain reminds him of when he initially got on dialysis as he feels like his lungs are full of fluid. Shortness of breath did acutely worsen over the past day, which brought him over to the ED for further care. The patient did also have a cough that started around the same time that is productive for pale yellowish sputum. Additionally, the patient does note that he normally has very high blood pressure, with systolic hovering around 180-200s at home. He takes nifedipine and labetalol twice daily at home as well as clonidine as needed, however he has not taken any of his blood pressure medications this afternoon as he was vomiting around that time. Additionally, the patient notes that seems like his blood pressure increases after dialysis sessions. Furthermore, the patient also notes that his blood glucose has been not well in the controlled. The patient has a glucose sensor, which when evaluated, shows that the patient is 97% out of range. The patient takes 60 units of insulin glargine in the morning and 40 units at night with sliding scale insulin as needed, however is not always consistent with it because he usually goes low after dialysis sessions. The last dialysis session that the patient had was back on Thursday 06/28, which is earlier than his usual schedule due to changes and holiday schedule at his dialysis center. The patient states that they have been taking about 2 L of fluid out with each dialysis session and have not increased the amount that they have been taking out. Patient also notes abdominal pain that is new, located in the right upper quadrant primarily. He rates the pain as a 10 out of 10 aching?stabbing pain when palpated in that right upper quadrant, which goes up to an 11 or 12 upon inspiration with palpation of the right upper quadrant. The patient also has had wounds in his left foot that he states has been present since [place] in early June. The patient previously seen outpatient wound care, who told him that it does not seem infected. Upon evaluation in the ED, the patient does have 2 wounds on the left foot near the medial portion of the ankle that appear mostly yellowish without any drainage, however he does have additional wounds on the sole of his left foot which appear like granulated tissue with some yellowish material surrounding it that is seeping into the wound dressing, but lacks any expression of pus or fluid upon palpation/squeezing of the left foot and the patient does not endorse any additional pain at that foot upon palpation. The patient endorses chills, cough, light yellowish sputum production, and shortness of breath. The patient denies fevers, chest pain, and dysuria (patient mostly anuric due to his ESRD). ED course: Initial vitals significant for blood pressure of 230/104, respiratory rate 24, and O2 saturation 95% on 14 L oxy mask, patient would eventually have a temperature of 101 ?F Initial labs significant for WBC 15.7, hemoglobin 12.0, sodium of 130, chloride of 89, BUN of 35, creatinine of 6.4, glucose of 533, lactic acid of 3.0, total bilirubin of 1.8, alkaline phosphatase of 297, and BNP over 3280 Chest x-ray on 06/29 shows mild CHF with possible pneumonia in the lung bases Patient was placed on BiPAP given findings suggestive of fluid overload, which improved respirations and work of breathing Ultrasound of gallbladder on 06/29 shows mild gallbladder wall thickening without calculi or sludge with mild hepatomegaly and probable fatty liver infiltration In ED, patient was given topical nitroglycerin, 1 g of acetaminophen p.o., Zosyn 3.375 g, hydralazine 20 mg, insulin lispro 5 units, and had a dialysis session that removed about 4 L of fluid Past Surgical History: Left fistula placement Current Medication(s): Labetalol 200 mg twice daily Nifedipine 30 mg twice daily Clonidine 0.2 mg as needed for systolic blood pressure over 200 Insulin glargine 16 units in the morning and 40 units at night Allergies (w/ Reactions): NKDA Family History: Diabetes, hypertension, and kidney injury in his mother side of the family Alcohol Intake: Patient denies Tobacco/Vape Use: Patient denies Other Drug Use: Patient denies Review of Systems Review of Systems Systems Reviewed: All systems reviewed, normal except as documented Exam Vital Signs Temp Pulse Resp BP Pulse Ox O2 Del Method O2 Flow Rate 98.1 F 89 16 191/94 H 99 Nasal Cannula 3 06/30/25 01:01 06/30/25 02:19 06/30/25 02:19 06/30/25 01:01 06/30/25 02:19 06/30/25 01:01 06/30/25 02:19 FiO2 35 06/30/25 00:18 Narrative Exam Physical Exam: General: Alert, slightly distressed. Skin: Warm, dry, intact. Head: Normocephalic, atraumatic. Eye: Slightly icteric conjunctiva, PERRL. Throat: Oral mucosa moist. No obvious lesions in oropharynx. Cardiovascular: Regular rate and rhythm, no murmur, +S1/S2. Respiratory: Respirations labored on oxy mask 14L, tachypneic, crackles present bilaterally to auscultation, no wheezing. Gastrointestinal: Soft, tender to palpation at RUQ, Roa sign positive, non-distended. No guarding or rebound tenderness. Extremities: 1+ edema in BLE up to knees, no cyanosis, no clubbing. Capillary refill 1-2s in all extremities. Two large wounds near medial left ankle with yellow surface and no drainage, estimated size 2 x 3 cm each. Large estimated 3 x 5 cm wound on anterior sole with granulation tissue, non tender, and no drainage/pus expression, but dressing noted to have yellowish discoloration around wound. Neuro: No focal deficits observed. Conversant, moving all extremities. No overt cerebellar signs/incoordination. Psychiatric: Cooperative, appropriate affect. Results: Labs 06/29/25 18:10 06/29/25 18:10 Labs: Short CBC 06/29/25 Range/Units 18:10 WBC 15.7 H (3.8-10.6) Thou/mm3 Hgb 12.0 L (13.5-16.0) g/dL Hct 35.6 L (41.0-53.0) % Plt Count 277 D (140-440) Thou/mm3 BMP 06/29/25 18:10 Sodium 130 L Potassium 4.9 Chloride 89 L Carbon Dioxide 25.0 BUN 35 H Creatinine 6.4 H* Glucose 533 H* Calcium 9.7 Cardiac Enzymes 06/29/25 Range/Units 18:10 Troponin I < 0.020 (0.0-0.045) ng/mL Liver Function 06/29/25 Range/Units 18:10 Total Bilirubin 1.8 H (0.3-1.2) mg/dL AST 26 (0-34) U/L ALT < 7 L (10-49) U/L Alkaline Phosphatase 297 H (46-116) U/L Albumin 4.9 (3.5-5.0) gm/dL Quality Measures Quality Measures VTE prophylaxis Medications Home Medications and Allergies Home Medications ?Medication ?Instructions ?Recorded ?Confirmed ?Type insulin glargine 100 unit/mL (3 60 unit subcut QAM 08/12/23 04/15/24 History mL) subcutaneous pen (Basaglar KwikPen U-100 Insulin) calcium acetate 667 mg tablet 667 mg PO TID 10/10/23 06/30/25 History insulin glargine 100 unit/mL (3 40 unit subcut HS PRN Hyperglycemia 12/24/23 06/30/25 History mL) subcutaneous pen (Basaglar KwikPen U-100 Insulin) labetalol 200 mg tablet 200 mg PO BID 12/24/23 06/30/25 History nifedipine 30 mg tablet,extended 30 mg PO BID 12/24/23 06/30/25 History release 24 hr vitamin B complex-vitamin C-folic 1 tab PO QDAY 12/24/23 04/15/24 History acid 0.8 mg tablet (Yuliana-Ethel) furosemide 40 mg tablet 40 mg PO DAILY 06/30/25 06/30/25 History Allergies Allergy/AdvReac Type Severity Reaction Status Date / Time No Known Allergies Allergy Verified 05/18/25 22:48 Visit Medications Acetaminophen (Acetaminophen 325 Mg Tablet) 650 mg PO Q6H PRN PRN Reason: Fever >101.5 or pain 1-3 Stop: 07/30/25 02:06 Dextrose (Dextrose 50%-Water Inj 50 Ml Syringe) 25 ml IV Q15MIN PRN PRN Reason: BG 50-70 responsive npo pt Stop: 07/30/25 02:12 Dextrose (Dextrose 50%-Water Inj 50 Ml Syringe) 50 ml IV Q15MIN PRN PRN Reason: BG <50 OR BG <70 & pt unresponsive Stop: 07/30/25 02:12 Glucagon (Glucagon Inj 1 Mg Vial) 1 mg IM Q15MIN PRN PRN Reason: BG <70, and no IV access Heparin Sodium (Porcine) (Heparin Sod Inj 5000 Unit/Ml Vial) 5,000 unit SC Q12H [facility] Stop: 07/14/25 08:59 Albumin Human (Albuminex 25% Ivpb) 25 gm in 100 mls @ 0 mls/hr IV Q30MIN PRN PRN Reason: To maintain SBP>90 Insulin Degludec (Insulin Degludec 5 Unit/0.05 Ml (Per 5 Units)) 40 unit SC QDAY [facility] Stop: 07/30/25 08:59 Insulin Human Lispro (Insulin Lispro (Admelog) 1 Unit/0.01 Ml Unit) 0 unit SC ACHS [facility]; Protocol Stop: 07/30/25 07:29 Labetalol HCl (Labetalol 100 Mg Tablet) 200 mg PO BID [facility] Stop: 07/30/25 08:59 Labetalol HCl (Labetalol Inj 5 Mg/Ml Vial 4 Ml) 10 mg IVP Q6HR PRN PRN Reason: SBP > 200 and HR >80 Stop: 07/30/25 02:16 Nifedipine (Nifedipine 10 Mg Capsule) 30 mg PO BID [facility] Stop: 07/30/25 08:59 Ondansetron HCl (Ondansetron Inj 2 Mg/Ml Inj 2 Ml) 4 mg IVP Q6H PRN; Protocol PRN Reason: NAUSEA OR VOMITING Stop: 07/30/25 02:12 Discontinued Medications Acetaminophen (Acetaminophen 500 Mg Tablet) 1,000 mg PO X1 ONE Stop: 06/29/25 19:18 Last Admin: 06/29/25 19:24 Dose: 1,000 mg Epoetin Adiel (Epoetin Adiel-Epbx Inj 10,000 Unit/Ml Vial (Esrd)) 10,000 unit SC X1 ONE Stop: 06/29/25 23:31 Last Admin: 06/30/25 00:47 Dose: Not Given Hydralazine HCl (Hydralazine Inj 20 Mg/Ml Vial) 20 mg IVP X1 ONE Stop: 06/29/25 19:23 Last Admin: 06/29/25 19:37 Dose: 20 mg Acetaminophen (Ofirmev Inj) 1,000 mg in 100 mls @ 250 mls/hr IV NOW ONE Stop: 06/29/25 19:28 Last Admin: 06/29/25 19:20 Dose: Not Given Piperacillin/Tazobactam/Dextrose (Zosyn) 3.375 gm in 50 mls @ 100 mls/hr IV X1 ONE; Protocol Stop: 06/29/25 19:36 Last Infusion: 06/29/25 20:00 Dose: Infused Insulin Degludec (Insulin Degludec 5 Unit/0.05 Ml (Per 5 Units)) 10 unit SC X1 ONE Stop: 06/29/25 20:01 Last Admin: 06/30/25 00:54 Dose: Not Given Insulin Human Lispro (Insulin Lispro (Admelog) 1 Unit/0.01 Ml Unit) 5 unit SC X1 ONE Stop: 06/29/25 20:01 Last Admin: 06/29/25 20:29 Dose: 5 unit Labetalol HCl (Labetalol Inj 5 Mg/Ml Vial 4 Ml) 10 mg IVP X1 ONE Stop: 06/29/25 20:15 Last Admin: 06/30/25 01:03 Dose: 10 mg Nitroglycerin (Nitroglycerin Oint 2% 1 Inch Packet) 1 inch TOP X1 ONE Stop: 06/29/25 18:44 Last Admin: 06/29/25 18:47 Dose: 1 inch Assessment & Plan Plan This patient is a 40-year-old male with a history of type I versus type 2 diabetes mellitus, ESRD on HD (Saturday, , Saturday), hypertension, diabetic retinopathy, diabetic neuropathy, and status post left fistula placement who presented to [facility] ED on 06/29 for worsening shortness of breath and cough. Patient was admitted for management of hypertensive emergency with volume overload. #Hypertensive emergency #Pulmonary edema #Acute hypoxic respiratory failure #Elevated BNP #Lactic acidosis #History of hypertension Patient noted to have blood pressure of 230/104 on admission. Patient does normally have blood pressure in 180-200s systolic at home, for which he takes nifedipine twice daily, labetalol twice daily and clonidine as needed for systolic blood pressure above 200, however he missed his evening blood pressure medication due to recent vomiting. Possibly has underlying CHF as patient was noted to have estimated LVEF of 50 to 55% back in 04/13/2024. Patient's hypertensive emergency likely resulted in worsening of vascular congestion and pulmonary edema, resulting at acute hypoxic respiratory failure. Lactic acidosis on admission likely secondary to hypoxemia as the patient required 14 L oxy mask to maintain O2 saturation of 95% when presented to ED. Patient's breathing status improved upon usage of BiPAP in ED. Diagnostic: BNP on admission over 3280 Lactic acid initially 3.0, which decreased to 1.1 on admission after dialysis and BiPAP Echocardiogram on 04/13/24 shows normal LV size and function with mild LVH, estimated LVEF 50 to 55% Chest x-ray on 06/29 shows prominent vascular congestion with perihilar basilar edema, small left pleural effusion, and moderate CHF with possible superimposed pneumonia at lung bases Repeat echocardiogram ordered, pending Treatment: Decrease SBP by 25% within the first hour (avoid decreasing below SBP 172), and then goal of 160/100 over next 2-6 hours, followed by normotensive BP over next 24-48 hours to avoid any CVA Continue dialysis as indicated by nephrology to correct patient's fluid overload status as patient is mostly anuric given ESRD BiPAP as needed to improve oxygenation status and decrease pulmonary edema, wean as tolerated Resumed patient's home nifedipine 30 mg twice daily and labetalol 200 mg twice daily, pending final med rec Labetalol 10 mg IVP every 6 hours as needed if SBP >180 and HR >75 #Leukocytosis #Fevers Patient noted to have WBC of 15.7 on admission with a fever of 101 ?F in the ED. Patient was also noted to have elevated lactic acid, however this is likely secondary to hypoxemia from the pulmonary edema as repeat lactic acid post BiPAP and dialysis resolved the patient's lactic acidosis. Leukocytosis is possibly reactive, however we will continue to do further workup given the patient's fever. Possible source of entry for infection is the patient's diabetic foot ulcers on the left foot. Diagnostic: Blood cultures collected 06/29, pending Urinalysis uncollected as patient is anuric Treatment: Zosyn 2.25 g every 8 hours (should be given after dialysis as dialysis will remove 30-40% of Zosyn) Wound care for diabetic ulcers #Right upper quadrant abdominal pain #Hyperbilirubinemia #Elevated alkaline phosphatase #Cholecystitis ruled out #Cholangitis ruled out Patient noted to have significant right upper quadrant abdominal pain and was noted to have elevated bilirubin and alk phos. However, other LFTs within normal limits. Gallbladder ultrasound was taken, which was negative for any acute findings. Diagnostic: Ultrasound of gallbladder on 06/29 shows mild gallbladder wall thickening without calculi or sludge with mild hepatomegaly and probable fatty liver infiltration Treatment: Will continue to monitor with daily CMP Patient to follow up outpatient #ESRD on HD, Saturday//Saturday #Diabetic nephropathy #S/p left fistula placement Patient is ESRD on hemodialysis secondary to diabetic nephropathy. Patient is status post last fistula placement and follows with Dr. Gomez outpatient for nephrology. The patient normally receives dialysis on Tuesdays, , and Saturdays, however his last hemodialysis session was on Thursday 06/28 due to missed dialysis centers holiday schedule. Treatment: Nephrology consulted, appreciate recommendations Patient received dialysis on 06/29 prior to admission, lasted for about 3 hours, and net total of 4 L removed Patient to continue dialysis sessions as indicated by nephrology given fluid overload status #Uncontrolled insulin-dependent type I vs type II diabetes mellitus #Diabetic retinopathy #Diabetic neuropathy #Diabetic foot ulcers The patient notes that he has a long history of diabetes, diagnosed when he was 16 years old. It is not entirely sure if he has type I or type II as he has been previously told that he has type I, however his most recent PCP at [facility] stated that he has type II. The patient has never been officially tested for type I diabetes to the patient's knowledge. Patient is noted to have significantly poor blood glucose control as indicated by his GCS data and previous hemoglobin A1c's. Patient takes insulin glargine 60 units in the morning and 40 units at night along with a sliding scale as needed. Diagnostic: Hemoglobin A1c on 04/01 was noted to be 13.2% Continuous glucose monitor data shows patient is out of range 97% of the time Hemoglobin A1c ordered, pending Treatment: Sliding scale insulin step 3 Blood glucose checks ACHS Insulin degludec 40 units daily Wound care referral ordered Patient to follow-up with outpatient wound care Will recommend that the patient follow-up with outpatient endocrinology upon discharge given history of poor diabetes control #Electrolyte abnormalities #Hyponatremia #Hypochloremia Patient noted to have sodium of 130 and chloride of 80 on admission. Patient notes that he has been drinking more fluids than usual, so this is possibly secondary to excessive fluid consumption. Treatment: Fluid restriction 1200 cc Patient to receive dialysis as determined by nephrology Consider salt tablets if hyponatremia worsens #Anemia, normocytic #Anemia of chronic disease Patient noted to have hemoglobin of 12.0 on admission with MCV of 80. Patient was noted to have an MCV of 79 on 06/12. Patient does have a history of anemia, thought to be of chronic disease secondary to his ESRD. Possible additional iron deficiency anemia given borderline MCV Treatment: Continue to monitor with daily CBC Transfuse if hemoglobin less than 7.0 as per protocol Consider iron panel for further evaluation Patient to follow-up outpatient DVT Prophylaxis: Heparin GI Prophylaxis: N/A Bowel: [place] S PRN Diet: NPO [place]: N/A Lines: PIV Antibiotics: Zosyn Code Status: FULL Reason for Hospitalization: Hypertensive emergency with volume overload Other Barriers to Discharge: Echocardiogram Patient plan of care was discussed with attending physician Dr. Waqar Gaytan, PGY1
[2025-06-30] MEDS: LIDOCAINE 5% 1 PATCH TOP (04:56)
[2025-06-30 05:58] LABS: Basophils # (Auto) 0.1 Thou/mm3 (0.0-0.2); Basophils % (Auto) 1 % (0-2.5); Eosinophils # (Auto) 0.0 Thou/mm3 (0.0-0.5); Eosinophils % (Auto) 0 % (0-10); Hematocrit 32.6 % (41.0-53.0); Hemoglobin 10.7 g/dL (13.5-16.0); Immature Granulocytes Auto 0.07 Thou/mm3 (0.00-0.00); Lymphocytes # (Auto) 1.0 Thou/mm3 (1.0-4.8); Lymphocytes % (Auto) 6 % (10-50); Mean Corpuscular HGB Conc 32.8 g/dl (31.0-37.0); Mean Corpuscular Hemoglobin 26.6 pg (25.0-35.0); Mean Corpuscular Volume 81 fL (80-100); Monocytes # (Auto) 1.0 Thou/mm3 (0.0-0.8); Monocytes % (Auto) 7 % (0-12); Neutrophils # (Auto) 13.4 Thou/mm3 (1.8-7.7); Neutrophils % (Auto) 86 % (37-80); Nucleated Red Blood Cell # 0.00 Thou/mm3 (0.00-0.00); Nucleated Red Blood Cell % 0 /100 WBC (0); Platelet Count 281 Thou/mm3 (140-440); RDW Standard Deviation 47.6 fL (35.1-43.9); Red Blood Count 4.02 Miln/mm3 (4.50-5.90); White Blood Count 15.5 Thou/mm3 (3.8-10.6)
[2025-06-30 06:19] LABS: Alanine Aminotransferase 14 U/L (10-49); Albumin, Serum 4.4 gm/dL (3.5-5.0); Albumin/Globulin Ratio 1.3 (1.2-2.2); Alkaline Phosphatase 226 U/L (46-116); Anion Gap 14 (7-16); Aspartate Amino Transferase 19 U/L (0-34); BUN/Creatinine Ratio 5 Ratio (12-20); Bilirubin,Total 2.1 mg/dL (0.3-1.2); Blood Urea Nitrogen 24 mg/dL (9-23); Calcium 9.1 mg/dL (8.3-10.6); Calcium (Corrected) 9.1 mg/dL (8.5-10.1); Carbon Dioxide 27.6 mMol/L (20.0-31.0); Chloride 96 mMol/L (98-107); Creatinine (Component) 4.4 mg/dL (0.6-1.3); Estimated Creatinine Clearance 22.4 mL/min (>60); Globulin 3.4 gm/dL (2.3-3.5); Glucose 234 mg/dL (74-106); Magnesium 1.9 mg/dL (1.6-2.6); Osmolality,Calculated 287 (275-295); Potassium 4.3 mMol/L (3.4-5.1); Sodium 138 mMol/L (136-145); Total Protein 7.8 gm/dL (5.7-8.2); eGFR 17 See Note
[2025-06-30 06:32] LABS: Glucose Estimated Average 355 mg/dL (80-131); Hemoglobin A1C > 14.0 % Hgb (4.8-6.0)
[2025-06-30] MEDS: INSULIN LISPRO (AdmeLOG) 1 UNIT/0.01 ML UNIT SC ×3 (07:35→18:14)
[2025-06-30] MEDS: INSULIN DEGLUDEC 5 UNIT/0.05 ML (PER 5 UNITS) 40 UNIT SC (08:52)
[2025-06-30] MEDS: HEPARIN SOD INJ 5000 UNIT/ML VIAL SC ×2 (08:52→20:15)
[2025-06-30] MEDS: LABETALOL 100 MG TABLET 200 MG PO ×2 (08:54→20:19)
[2025-06-30] MEDS: PIPER/TAZO 3.375 GM PREMIX 3.375 GM/50 ML BAG IV ×2 (08:55→20:24)
[2025-06-30] MEDS: CALCIUM ACETATE 667 MG TABLET PO ×3 (09:02→18:21)
--- NOTE | 2025-06-30 09:14 | ESPR_ITS ---
<Statement entered by Thiago Gerardo MD - 07/03/25 12:57> I reviewed above note and agree with findings and plans. I have also personally examined the patient with medicine team and went over assessment and plan with medical team including summer internship and resident physician. <Statement entered by Giovanni Montes De Oca MD - 06/30/25 16:13> In summary: 40-year-old male with ESRD and poorly controlled diabetes was admitted for hypertensive emergency and acute hypoxic respiratory failure. The primary problem is severe volume overload with evidence of pulmonary edema caused by a missed dialysis session and missed blood pressure medications. In the ED, his blood pressure reached 230/104, requiring BiPAP for oxygenation and emergent dialysis to remove 4 liters of fluid. Continued on hemodialysis and IV antibiotics for a fever and high white blood cell count, likely stemming from infected diabetic foot ulcers. He has poorly controlled diabetes with A1c >14. AM bedside GLUCOSE was around 400 we had give 6 units insulin subQ. No evidence of DKA. The current focus is stabilizing his blood pressure, managing his severe hyperglycemia (A1c >14%), and maintaining a strict dialysis schedule to prevent further respiratory distress. I?ve reviewed the note and agree with this assessment and plan, with the exceptions outlined above. I personally went over the labs, imaging, home medications, and prior records, and examined the patient. The case was also reviewed with the attending physician. Please note: this document was transcribed using voice recognition technology; minor inaccuracies may be present. Giovanni Montes De Oca DO PGY II Documentation for date of: 06/30/25 Subjective Subjective Interval history: This patient is a 40-year-old male with a history of type I versus type 2 diabetes mellitus, ESRD on HD (Saturday, , Saturday), hypertension, diabetic retinopathy, diabetic neuropathy, and status post left fistula placement who presented to [facility] ED on 06/29 for worsening shortness of breath and cough. Patient was admitted for management of hypertensive emergency with volume overload. The patient has not missed any dialysis sessions, but stated he drank a lot of water. The patient's shortness of breath did seem to alleviate after his dialysis session (06/29/25, 4L out in ED). 06/30/25: NAOE. BP 127/67 this morning s/p dialysis session last night with 4L removed. Plan for another dialysis session today with goal of 3.5L removal per nephrology. BG still consistently high, will continue to monitor closely and increase basal insulin tmr. Anion gap this morning 14. Pending echo read for EF. Exam Vital Signs Temp Pulse Resp BP Pulse Ox O2 Del Method O2 Flow Rate 98.1 F 77 18 127/67 99 Nasal Cannula 3 06/30/25 01:01 06/30/25 08:54 06/30/25 06:10 06/30/25 08:54 06/30/25 06:10 06/30/25 03:54 06/30/25 06:10 FiO2 35 06/30/25 00:18 Narrative Exam General: Alert, oriented, in no acute distress. HEENT: Normocephalic, atraumatic. Neck: Supple, no JVD, no lymphadenopathy or thyroid enlargement. Cardiovascular: Regular rate and rhythm. No murmurs, rubs, or gallops. Respiratory: Slight crackles to lower lung zones bilaterally. Normal respiratory effort. Abdomen: Soft, nontender, nondistended. No masses or organomegaly. Musculoskeletal: Full range of motion in all extremities. No joint swelling, tenderness, or deformities. Skin: Diabetic ulcers to LLE. Neurological: Alert, oriented. Diabetic neuropathy to LE. Psychiatric: Calm, cooperative, appropriate mood and affect. Objective Labs 06/30/25 02:00 06/30/25 02:00 Labs: Laboratory Results - last 24 hr 06/29/25 06/29/25 06/30/25 18:10 19:10 01:45 WBC 15.7 H RBC 4.44 L Hgb 12.0 L Hct 35.6 L MCV 80 MCH 27.0 MCHC 33.7 RDW Std Deviation 46.6 H Plt Count 277 D Neut % (Auto) 89 H Lymph % (Auto) 5 L [place] % (Auto) 4 Eos % (Auto) 0 Baso % (Auto) 0 Neut # (Auto) 14.0 H Lymph # (Auto) 0.8 L [place] # (Auto) 0.7 Eos # (Auto) 0.1 Baso # (Auto) 0.1 Immature Gran # (Auto) 0.07 H Absolute Nucleated RBC 0.00 Immature Gran % 0 Nucleated RBC % 0 PT 11.4 INR 1.1 APTT 24.0 Sodium 130 L Potassium 4.9 Chloride 89 L Carbon Dioxide 25.0 Anion Gap 16 BUN 35 H Creatinine 6.4 H* Estim Creat Clear Calc 15.6 L eGFR 11 L* BUN/Creatinine Ratio 5 L Glucose 533 H* Estimated Ave Glu mg/dL Hemoglobin A1c Calculated Osmolality 292 Lactic Acid 3.0 H 1.1 Calcium 9.7 Corrected Calcium 9.7 Phosphorus 3.0 Magnesium 2.2 Total Bilirubin 1.8 H AST 26 ALT < 7 L Alkaline Phosphatase 297 H Lactate Dehydrogenase 383 H Troponin I < 0.020 B-Natriuretic Peptide 2948 H* > 3280 H* Total Protein 9.3 H Albumin 4.9 Globulin 4.4 H Albumin/Globulin Ratio 1.1 L Lipase 38 Procalcitonin 0.25 06/30/25 02:00 WBC 15.5 H RBC 4.02 L Hgb 10.7 L Hct 32.6 L MCV 81 MCH 26.6 MCHC 32.8 RDW Std Deviation 47.6 H Plt Count 281 Neut % (Auto) 86 H Lymph % (Auto) 6 L [place] % (Auto) 7 Eos % (Auto) 0 Baso % (Auto) 1 Neut # (Auto) 13.4 H Lymph # (Auto) 1.0 [place] # (Auto) 1.0 H Eos # (Auto) 0.0 Baso # (Auto) 0.1 Immature Gran # (Auto) 0.07 H Absolute Nucleated RBC 0.00 Immature Gran % 1 H Nucleated RBC % 0 PT INR APTT Sodium 138 Potassium 4.3 D Chloride 96 L Carbon Dioxide 27.6 Anion Gap 14 BUN 24 H Creatinine 4.4 H* D Estim Creat Clear Calc 22.4 L eGFR 17 L BUN/Creatinine Ratio 5 L Glucose [address] Glu mg/dL 355 H Hemoglobin A1c > 14.0 H Calculated Osmolality 287 Lactic Acid Calcium 9.1 Corrected Calcium 9.1 Phosphorus Magnesium 1.9 Total Bilirubin 2.1 H AST 19 ALT 14 Alkaline Phosphatase 226 H D Lactate Dehydrogenase Troponin I B-Natriuretic Peptide Total Protein 7.8 Albumin 4.4 D Globulin 3.4 Albumin/Globulin Ratio 1.3 Lipase Procalcitonin Quality Measures Quality Measures VTE prophylaxis Assessment & Plan Assessment Current Active Medications: Generic Name Dose Route Start Last Admin Trade Name Freq PRN Reason Stop Dose Admin Acetaminophen 650 mg 06/30/25 02:07 Acetaminophen 325 Mg Tablet PO 07/30/25 02:06 Q6H PRN Fever >101.5 or pain 1-3 Hydrocodone Bitart/Acetaminophen 1 tab 06/30/25 04:39 Hydrocodone/Apap 5/325 Tablet PO 07/05/25 04:38 Q6HR PRN PAIN SCALE 4-10(Mod-Sev Benzonatate 100 mg 06/30/25 05:35 Benzonatate 100 Mg Capsule PO 07/30/25 05:34 Q8HR PRN COUGH Protocol Calcium Acetate 667 mg 06/30/25 12:00 Calcium Acetate 667 Mg Tablet PO 07/30/25 11:59 TIDWM NUSRAT Dextrose 25 ml 06/30/25 02:13 Dextrose 50%-Water Inj 50 Ml Syringe IV 07/30/25 02:12 Q15MIN PRN BG 50-70 responsive npo pt Dextrose 50 ml 06/30/25 02:13 Dextrose 50%-Water Inj 50 Ml Syringe IV 07/30/25 02:12 Q15MIN PRN BG <50 OR BG <70 & pt unresponsive Glucagon 1 mg 06/30/25 02:13 Glucagon Inj 1 Mg Vial IM Q15MIN PRN BG <70, and no IV access Heparin Sodium (Porcine) 5,000 unit 06/30/25 09:00 06/30/25 08:52 Heparin Sod Inj 5000 Unit/Ml Vial SC 07/14/25 08:59 5,000 unit Q12H NUSRAT Administration Albumin Human 25 gm in 100 mls @ 0 mls/hr 06/29/25 20:05 Albuminex 25% Ivpb IV Q30MIN PRN To maintain SBP>90 Per Protocol Piperacillin/Tazobactam/Dextrose 3.375 gm in 50 mls @ 12.5 mls/hr 06/30/25 09:00 06/30/25 08:55 Zosyn IV 07/07/25 08:59 12.5 mls/hr BID NUSRAT Administration Protocol Insulin Degludec 40 unit 06/30/25 09:00 06/30/25 08:52 Insulin Degludec 5 Unit/0.05 Ml (Per 5 Units) SC 07/30/25 08:59 40 unit QDAY NUSRAT Administration Insulin Human Lispro 0 unit 06/30/25 07:30 06/30/25 07:35 Insulin Lispro (Admelog) 1 Unit/0.01 Ml Unit SC 07/30/25 07:29 6 unit ACHS NUSRAT Administration Protocol Labetalol HCl 200 mg 06/30/25 09:00 06/30/25 08:54 Labetalol 100 Mg Tablet PO 07/30/25 08:59 200 mg BID NUSRAT Administration Labetalol HCl 10 mg 06/30/25 02:31 06/30/25 02:38 Labetalol Inj 5 Mg/Ml Vial 4 Ml IVP 07/30/25 02:16 10 mg Q6HR PRN Administration SBP > 180 and HR >75 Nifedipine 30 mg 06/30/25 05:25 06/30/25 08:54 Nifedipine 10 Mg Capsule PO 07/30/25 05:24 30 mg BID NUSRAT Administration Ondansetron HCl 4 mg 06/30/25 02:13 Ondansetron Inj 2 Mg/Ml Inj 2 Ml IVP 07/30/25 02:12 Q6H PRN NAUSEA OR VOMITING Protocol Plan This patient is a 40-year-old male with a history of type I versus type 2 diabetes mellitus, ESRD on HD (Saturday, , Saturday), hypertension, diabetic retinopathy, diabetic neuropathy, and status post left fistula placement who presented to [facility] ED on 06/29 for worsening shortness of breath and cough. Patient was admitted for management of hypertensive emergency with volume overload. #Hypertensive emergency #Pulmonary edema #Acute hypoxic respiratory failure #Elevated BNP #Lactic acidosis #History of hypertension Patient noted to have blood pressure of 230/104 on admission. Patient does normally have blood pressure in 180-200s systolic at home, for which he takes nifedipine twice daily, labetalol twice daily and clonidine as needed for systolic blood pressure above 200, however he missed his evening blood pressure medication due to recent vomiting. Possibly has underlying CHF as patient was noted to have estimated LVEF of 50 to 55% back in 04/13/2024. Patient's hypertensive emergency likely resulted in worsening of vascular congestion and pulmonary edema, resulting at acute hypoxic respiratory failure. Lactic acidosis on admission likely secondary to hypoxemia as the patient required 14 L oxy mask to maintain O2 saturation of 95% when presented to ED. Patient's breathing status improved upon usage of BiPAP in ED. Diagnostic: - BNP on admission over 3280 - Lactic acid initially 3.0, which decreased to 1.1 on admission after dialysis and BiPAP - Echocardiogram on 04/13/24 shows normal LV size and function with mild LVH, estimated LVEF 50 to 55% - Chest x-ray on 06/29 shows prominent vascular congestion with perihilar basilar edema, small left pleural effusion, and moderate CHF with possible superimposed pneumonia at lung bases - Repeat echocardiogram ordered, pending Treatment: - Decrease SBP by 25% within the first hour (avoid decreasing below SBP 172), and then goal of 160/100 over next 2-6 hours, followed by normotensive BP over next 24-48 hours to avoid any CVA - Continue dialysis as indicated by nephrology to correct patient's fluid overload status as patient is mostly anuric given ESRD - BiPAP as needed to improve oxygenation status and decrease pulmonary edema, wean as tolerated - Continue patient's home nifedipine 30 mg twice daily and labetalol 200 mg twice daily - Labetalol 10 mg IVP every 6 hours as needed if SBP >180 and HR >75 #Leukocytosis #Fevers Patient noted to have WBC of 15.7 on admission with a fever of 101 ?F in the ED. Patient was also noted to have elevated lactic acid, however this is likely secondary to hypoxemia from the pulmonary edema as repeat lactic acid post BiPAP and dialysis resolved the patient's lactic acidosis. Leukocytosis is possibly reactive, however we will continue to do further workup given the patient's fever. Possible source of entry for infection is the patient's diabetic foot ulcers on the left foot. Diagnostic: - Blood cultures collected 06/29, pending - Urinalysis uncollected as patient is anuric Treatment: - Zosyn 2.25 g every 8 hours (should be given after dialysis as dialysis will remove 30-40% of Zosyn) - Wound care for diabetic ulcers #Right upper quadrant abdominal pain #Hyperbilirubinemia #Elevated alkaline phosphatase #Cholecystitis ruled out #Cholangitis ruled out Patient noted to have significant right upper quadrant abdominal pain and was noted to have elevated bilirubin and alk phos. However, other LFTs within normal limits. Gallbladder ultrasound was taken, which was negative for any acute findings. Diagnostic: - Ultrasound of gallbladder on 06/29 shows mild gallbladder wall thickening without calculi or sludge with mild hepatomegaly and probable fatty liver infiltration Treatment: - Will continue to monitor with daily CMP - Patient to follow up outpatient #ESRD on HD, Saturday//Saturday #Diabetic nephropathy #S/p left fistula placement Patient is ESRD on hemodialysis secondary to diabetic nephropathy. Patient is status post last fistula placement and follows with Dr. Gomez outpatient for nephrology. The patient normally receives dialysis on Tuesdays, , and Saturdays, however his last hemodialysis session was on Thursday 06/28 due to missed dialysis centers holiday schedule. Treatment: - Nephrology consulted, appreciate recommendations --> plan for another dialysis session 06/30/25. - Patient received dialysis on 06/29 prior to admission, lasted for about 3 hours, and net total of 4 L removed - Patient to continue dialysis sessions as indicated by nephrology given fluid overload status #Uncontrolled insulin-dependent type I vs type II diabetes mellitus #Diabetic retinopathy #Diabetic neuropathy #Diabetic foot ulcers The patient notes that he has a long history of diabetes, diagnosed when he was 16 years old. It is not entirely sure if he has type I or type II as he has been previously told that he has type I, however his most recent PCP at [facility] stated that he has type II. The patient has never been officially tested for type I diabetes to the patient's knowledge. Patient is noted to have significantly poor blood glucose control as indicated by his GCS data and previous hemoglobin A1c's. Patient takes insulin glargine 60 units in the morning and 40 units at night along with a sliding scale as needed. Diagnostic: - Hemoglobin A1c on 04/01 was noted to be 13.2% - Continuous glucose monitor data shows patient is out of range 97% of the time - Hemoglobin A1c ordered --> A1c > 14 (06/30/25) Treatment: - Sliding scale insulin step 3 - Blood glucose checks ACHS - Insulin degludec 40 units daily, plan to increase dose tomorrow - Wound care referral ordered - Patient to follow-up with outpatient wound care - Will recommend that the patient follow-up with outpatient endocrinology upon discharge given history of poor diabetes control #Electrolyte abnormalities #Hyponatremia #Hypochloremia Patient noted to have sodium of 130 and chloride of 80 on admission. Patient notes that he has been drinking more fluids than usual, so this is possibly secondary to excessive fluid consumption. Treatment: - Fluid restriction 1200 cc - Patient to receive dialysis as determined by nephrology - Consider salt tablets if hyponatremia worsens #Anemia, normocytic #Anemia of chronic disease Patient noted to have hemoglobin of 12.0 on admission with MCV of 80. Patient was noted to have an MCV of 79 on 06/12. Patient does have a history of anemia, thought to be of chronic disease secondary to his ESRD. Possible additional iron deficiency anemia given borderline MCV Treatment: - Continue to monitor with daily CBC - Transfuse if hemoglobin less than 7.0 as per protocol - Consider iron panel for further evaluation - Patient to follow-up outpatient DVT Prophylaxis: Heparin GI Prophylaxis: N/A Bowel: [place] S PRN Diet: Diet carb consistent low. [place]: N/A Lines: PIV Antibiotics: Zosyn Code Status: FULL Reason for Hospitalization: Hypertensive emergency with volume overload Other Barriers to Discharge: Echocardiogram Case discussed with my senior resident Dr. Montes De Oca Case discussed with my attending Dr. Akin Kincaid, DO PGY 1
--- NOTE | 2025-06-30 09:32 | PC.SS ---
Patient Todd Aguilar is a 40 Year old male. SS met with patient at bedside to discuss discharge disposition and verify demographic information. Patient lives at home with his father. Patient reports he is able to ambulate independently, however does have a walker and cane. Patient is able to complete ADL's independently. Patient is an established patient with Dr. Mariscal and gets dialysis on M,W, F. Patient's PCP is Reagan Sultana. At time of discharge patient will return home. Discharge plan: home Next of Kin: Father, Alexi Aguilar [phone] PCP: Reagan Sultana
--- NOTE | 2025-06-30 12:07 | ESPR_ITS ---
Documentation for date of: 06/30/25 Subjective Subjective Interval history: Mr. Aguilar is a 40-year-old gentleman with a longstanding history of type 2 diabetes mellitus, ESRD on HD (Saturday, , Saturday), hypertension, diabetic retinopathy, diabetic neuropathy, and status post left fistula placement who presented to [facility] ED on 06/29/2025 for worsening shortness of breath and cough. Patient was admitted for management of hypertensive emergency with volume overload. Patient was seen by me at the dialysis unit and noted to have significant fluid overload. Patient admits to drinking fluid due to dry mouth. He has been noted on 10 pounds over from his dry weight. Patient moved recently from [place] dialysis unit. Blood pressure in the ED was significantly elevated. Nephrology consultation requested the need for emergency dialysis. Patient currently seen on dialysis. Initial vitals significant for blood pressure of 230/104, respiratory rate 24, and O2 saturation 95% on 14 L oxy mask, patient would eventually have a temperature of 101 ?F Initial labs significant for WBC 15.7, hemoglobin 12.0, sodium of 130, chloride of 89, BUN of 35, creatinine of 6.4, glucose of 533, lactic acid of 3.0, total bilirubin of 1.8, alkaline phosphatase of 297, and BNP over 3280 Chest x-ray on 06/29 shows mild CHF with possible pneumonia in the lung bases Patient was placed on BiPAP given findings suggestive of fluid overload, which improved respirations and work of breathing Ultrasound of gallbladder on 06/29 shows mild gallbladder wall thickening without calculi or sludge with mild hepatomegaly and probable fatty liver infiltration In ED, patient was given topical nitroglycerin, 1 g of acetaminophen p.o., Zosyn 3.375 g, hydralazine 20 mg, insulin lispro 5 units, and had a dialysis session that removed about 4 L of fluid 06/30/2025 patient currently seen on dialysis. Will be an extra session due to his fluid overload. Will adjust dry weight at the dialysis unit. Labs and medications reviewed. Review of Systems Review of Systems Narrative Review of Systems: CONSTITUTIONAL: Patient complaining of weight gain HEENT: Patient has significant visual problems from diabetic retinopathy CARDIOVASCULAR: Patient denies any chest pain,. c/o shortness of breath, swelling in the lower extremities. PULMONARY: Patient c/o shortness of breath GASTROINTESTINAL: Patient denies any abdominal pain, constipation, nausea, vomiting, diarrhea. GENITOURINARY: Patient denies any urinary symptoms of burning or frequency or hematuria, denies any form in the urine. SKIN: wound in the left great toe. Right IJ dialysis catheter noted. + AVf MUSCULOSKELETAL: Pain in the left foot and toe NEUROLOGICAL: Denies any neurological problems of strokes, seizures or confusion. Denies any memory problems. Exam Vital Signs Temp Pulse Resp BP Pulse Ox O2 Del Method O2 Flow Rate 36.4 C 75 16 157/81 H 99 Room Air 2 06/30/25 20:00 06/30/25 20:19 06/30/25 20:00 06/30/25 20:19 06/30/25 20:00 06/30/25 20:00 06/30/25 17:02 FiO2 35 06/30/25 00:18 Narrative Exam GENERAL APPEARANCE: Patient on dialysis. NECK: Neck supple, no JVD or bruit CARDIOVASCULAR: Heart regular, no murmurs LUNGS/CHEST: Chest clear to auscultation. No rales, rhonchi, wheezing ABDOMEN: Soft, nontender, nondistended. No masses. Normal bowel sounds. EXTREMITIES: No edema, clubbing or cyanosis. SKIN: Wound noted in the left foot. Right IJ dialysis catheter noted. Exit site clean. MUSCULOSKELETAL: In bed NEUROLOGICAL : No neurological deficits, alert and awake Objective Labs 07/01/25 05:15 07/01/25 05:15 Labs: Laboratory Results - last 24 hr 06/30/25 06/30/25 01:45 02:00 WBC 15.5 H RBC 4.02 L Hgb 10.7 L Hct 32.6 L MCV 81 MCH 26.6 MCHC 32.8 RDW Std Deviation 47.6 H Plt Count 281 Neut % (Auto) 86 H Lymph % (Auto) 6 L [place] % (Auto) 7 Eos % (Auto) 0 Baso % (Auto) 1 Neut # (Auto) 13.4 H Lymph # (Auto) 1.0 [place] # (Auto) 1.0 H Eos # (Auto) 0.0 Baso # (Auto) 0.1 Immature Gran # (Auto) 0.07 H Absolute Nucleated RBC 0.00 Immature Gran % 1 H Nucleated RBC % 0 Sodium 138 Potassium 4.3 D Chloride 96 L Carbon Dioxide 27.6 Anion Gap 14 BUN 24 H Creatinine 4.4 H* D Estim Creat Clear Calc 22.4 L eGFR 17 L BUN/Creatinine Ratio 5 L Glucose [address] Glu mg/dL 355 H Hemoglobin A1c > 14.0 H Calculated Osmolality 287 Lactic Acid 1.1 Calcium 9.1 Corrected Calcium 9.1 Magnesium 1.9 Total Bilirubin 2.1 H AST 19 ALT 14 Alkaline Phosphatase 226 H D Total Protein 7.8 Albumin 4.4 D Globulin 3.4 Albumin/Globulin Ratio 1.3 Assessment & Plan Additional Assessment & Plan Additional Plan: Mr. Aguilar is a 38-year-old gentleman with past medical history of insulin dependent diabetes, hypertension, and ESRD from diabetic nephropathy presented to the hospital for shortness of breath, hypertensive emergency. #ESRD/diabetic nephropathy Patient currently seen on dialysis. Tolerating dialysis without any problems. Hemodialysis for 3 hours, 2K, ultrafiltration 3-3.5 L, Epogen 6000, no heparin ordered. Plan of care discussed with the dialysis nurse. Please see dialysis flowsheet for further details. Next dialysis scheduled for tomorrow # Fluid overload On dialysis # Hypertension resume home medications Adjust BP meds # insulin dependent type 2 diabetes -Continue basal and sliding scale insulin -Continue diabetes education and close outpatient follow up for DM control # Anemia Patient will receive Epogen with the dialysis. Thank you Dr. Zavaleta for allowing me to participate in the care of Mr. Brooks
[2025-06-30] MEDS: ASCORBIC ACID 250 MG TABLET PO ×2 (15:06→20:19)
[2025-06-30] MEDS: ZINC SULFATE 220 MG CAPSULE PO (15:06)
[2025-07-01] VITALS (7 sets, daily range): BP systolic 131–159; BP diastolic 72–83; PULSE 65–81; RESP 8–18; TEMP 36.2–36.6; O2SAT 98–99
[2025-07-01 05:36] LABS: Basophils # (Auto) 0.1 Thou/mm3 (0.0-0.2); Basophils % (Auto) 1 % (0-2.5); Eosinophils # (Auto) 0.2 Thou/mm3 (0.0-0.5); Eosinophils % (Auto) 2 % (0-10); Hematocrit 35.1 % (41.0-53.0); Hemoglobin 11.4 g/dL (13.5-16.0); Immature Granulocytes Auto 0.02 Thou/mm3 (0.00-0.00); Lymphocytes # (Auto) 2.1 Thou/mm3 (1.0-4.8); Lymphocytes % (Auto) 22 % (10-50); Mean Corpuscular HGB Conc 32.5 g/dl (31.0-37.0); Mean Corpuscular Hemoglobin 26.8 pg (25.0-35.0); Mean Corpuscular Volume 83 fL (80-100); Monocytes # (Auto) 0.8 Thou/mm3 (0.0-0.8); Monocytes % (Auto) 8 % (0-12); Neutrophils # (Auto) 6.5 Thou/mm3 (1.8-7.7); Neutrophils % (Auto) 67 % (37-80); Nucleated Red Blood Cell # 0.00 Thou/mm3 (0.00-0.00); Nucleated Red Blood Cell % 0 /100 WBC (0); Platelet Count 280 Thou/mm3 (140-440); RDW Standard Deviation 48.2 fL (35.1-43.9); Red Blood Count 4.25 Miln/mm3 (4.50-5.90); White Blood Count 9.6 Thou/mm3 (3.8-10.6)
[2025-07-01 06:38] LABS: Alanine Aminotransferase 9 U/L (10-49); Albumin, Serum 4.2 gm/dL (3.5-5.0); Albumin/Globulin Ratio 1.1 (1.2-2.2); Alkaline Phosphatase 178 U/L (46-116); Anion Gap 16 (7-16); Aspartate Amino Transferase 15 U/L (0-34); BUN/Creatinine Ratio 6 Ratio (12-20); Bilirubin,Total 0.9 mg/dL (0.3-1.2); Blood Urea Nitrogen 29 mg/dL (9-23); Calcium 9.3 mg/dL (8.3-10.6); Calcium (Corrected) 9.3 mg/dL (8.5-10.1); Carbon Dioxide 28.3 mMol/L (20.0-31.0); Chloride 94 mMol/L (98-107); Creatinine (Component) 4.7 mg/dL (0.6-1.3); Estimated Creatinine Clearance 21.1 mL/min (>60); Globulin 3.8 gm/dL (2.3-3.5); Glucose 211 mg/dL (74-106); Magnesium 2.1 mg/dL (1.6-2.6); Osmolality,Calculated 287 (275-295); Phosphorous 3.7 mg/dL (2.4-5.1); Potassium 3.6 mMol/L (3.4-5.1); Sodium 138 mMol/L (136-145); Total Protein 8.0 gm/dL (5.7-8.2); eGFR 15 See Note
[2025-07-01] MEDS: LABETALOL 100 MG TABLET 200 MG PO (08:11)
[2025-07-01] MEDS: HEPARIN SOD INJ 5000 UNIT/ML VIAL SC (08:11)
[2025-07-01] MEDS: CALCIUM ACETATE 667 MG TABLET PO (08:11)
[2025-07-01] MEDS: ASCORBIC ACID 250 MG TABLET PO (08:12)
[2025-07-01] MEDS: ZINC SULFATE 220 MG CAPSULE PO (08:12)
[2025-07-01] MEDS: INSULIN DEGLUDEC 5 UNIT/0.05 ML (PER 5 UNITS) 48 UNIT SC (08:12)
[2025-07-01] MEDS: INSULIN LISPRO (AdmeLOG) 1 UNIT/0.01 ML UNIT SC (08:13)
--- NOTE | 2025-07-01 09:36 | ESDS_ITS ---
<Statement entered by Thiago Gerardo MD - 07/05/25 08:00> I reviewed above note and agree with findings and plans. I have also personally examined the patient with medicine team and went over assessment and plan with medical team including architecture internship and resident physician. <Statement entered by Giovanni Montes De Oca MD - 07/01/25 10:43> In summary: 40-year-old male with ESRD and poorly controlled diabetes was admitted for hypertensive emergency and acute hypoxic respiratory failure. The primary problem is severe volume overload with evidence of pulmonary edema caused by a missed dialysis session and missed blood pressure medications. In the ED, his blood pressure reached 230/104, requiring BiPAP for oxygenation and emergent dialysis to remove 4 liters of fluid. Continued on hemodialysis and IV antibiotics for a fever and high white blood cell count, likely stemming from infected diabetic foot ulcers. He has poorly controlled diabetes with A1c >14. AM bedside GLUCOSE was around 400 we had give 6 units insulin subQ. No evidence of DKA. Blood sugar has been controlled. He is otherwise stable for discharge and we have made some adjustment in home medications for blood pressure as below. I?ve reviewed the note and agree with this assessment and plan, with the exceptions outlined above. I personally went over the labs, imaging, home medications, and prior records, and examined the patient. The case was also reviewed with the attending physician. Please note: this document was transcribed using voice recognition technology; minor inaccuracies may be present. Giovanni Montes De Oca DO PGY II Planned Discharge Date 07/01/25 DS: Providers Provider Date of admission: 06/30/25 02:07 Primary care physician: Reagan Sultana MD Admitting Provider: Sher Zavaleta DO Attending Provider on Admission: Sher Zavaleta DO Consults: 06/29/25 19:49 Consult to Nephrology Stat Comment: Consulting Provider: Emeterio Gomez 06/29/25 20:30 Referral Wound Care Stat Comment: WOUNDS TO LEFT FOOT 06/30/25 02:39 Referral [facility] Wound Healing Dept Routine Comment: 06/30/25 05:08 Referral [facility] Routine Comment: 06/30/25 09:56 Referral Nutritional Services Routine Comment: Wounds Attending Provider on DC: Thiago Gerardo MD Discharging Provider: Allen Kincaid DO Anticipated date of discharge: 07/01/25 DS: Diagnosis Problem List Completed Was Problem List Reviewed/Reconciled?: Yes Hospital Course Hospital Course Hospital course: Mr. Aguilar is a 40-year-old male with a history of type 2 diabetes mellitus, ESRD on HD (Saturday, , Saturday), hypertension, diabetic retinopathy, diabetic neuropathy, and status post left fistula placement who presented to [facility] ED on 06/29 for worsening shortness of breath and cough. Patient reported that he had been drinking more water lately then he should have due to increase thirst. He felt like his lungs were full of fluid and acutely worsen over the past day, which brought him over to the ED for further evaluation. On arrival, he was found to be hypertensive with BP of 230/104 with glucose of 533. He received an emergent dialysis with 4L removed, and received topical nitroglycerin, 1 g of acetaminophen p.o., Zosyn 3.375 g, hydralazine 20 mg, insulin lispro 5 units to control his hyperglycemia. Patient received another session of dialysis with 3L removed per nephrology recommendation on 06/30/25. On day of discharge, patient's BP remained hypertensive at 160s/80s. Hydralazine 10mg TID was added to his medication regimen. During this admission, he was found to have A1c > 14. Patient was advised to follow up closely with his PCP for adjustment of his insulin dosage and daily foot check to monitor any infections of his diabetic foot ulcers. At this time, patient is medically and physically stable for discharge for home. All questions and concerns addressed, plan of care discussed with patient, return precautions given. Diagnosis: #Hypertensive emergency #Pulmonary edema #Acute hypoxic respiratory failure #Elevated BNP #Lactic acidosis #History of hypertension #Leukocytosis #Fevers #Right upper quadrant abdominal pain #Hyperbilirubinemia #Elevated alkaline phosphatase #Cholecystitis ruled out #Cholangitis ruled out #ESRD on HD, Saturday//Saturday #Diabetic nephropathy #S/p left fistula placement #Uncontrolled insulin-dependent type I vs type II diabetes mellitus #Diabetic retinopathy #Diabetic neuropathy #Diabetic foot ulcers #Electrolyte abnormalities #Hyponatremia #Hypochloremia #Anemia, normocytic #Anemia of chronic disease Discharge Plan: * Follow up at [facility] for left foot wounds. [address] [place] [address]. Call [phone] to reschedule appointment as needed. * Wound care to left foot: shower daily, drying off well including between your toes. Swab dry wounds with betadine and allow to dry once a day. If wound start draining apply dry gauze and secure with gauze wrap. * Continue taking HYDRALAZINE 10 MG THREE TIMES DAILY for blood pressure control (NEW). Your PCP may have to adjust the dose for blood pressure optimization. * Follow up with primary MD for a Vascular consult to evaluate blood flow to your foot. * Please follow up with your PCP closely for better control of you blood sugar. Your A1c level at this admission is greater than 14. Patient has been explained that should any symptoms recur or worsen patient is instructed to return to the Emergency Department. Case discussed with my senior resident Dr. Montes De Oca Case discussed with my attending Dr. Akin Kincaid DO PGY 1 Status at Discharge Overall status at discharge: patient is back to baseline Time Spent with Patient Time attestation: Total time spent providing and/or coordinating discharge services: Time spent: Greater than 30 minutes Exam Vital Signs Temp Pulse Resp BP Pulse Ox O2 Del Method O2 Flow Rate 97.1 F 81 8 L 159/83 H 99 Nasal Cannula 1 07/01/25 08:00 07/01/25 08:12 07/01/25 08:00 07/01/25 08:12 07/01/25 08:00 07/01/25 08:00 07/01/25 08:00 FiO2 35 06/30/25 00:18 Narrative Exam General: Alert, oriented, in no acute distress. HEENT: Normocephalic, atraumatic. Neck: Supple, no JVD, no lymphadenopathy or thyroid enlargement. Cardiovascular: Regular rate and rhythm. No murmurs, rubs, or gallops. Respiratory: CTAB. Normal respiratory effort. Abdomen: Soft, nontender, nondistended. No masses or organomegaly. Musculoskeletal: Full range of motion in all extremities. No joint swelling, tenderness, or deformities. Skin: Diabetic ulcers to LLE. Neurological: Alert, oriented. Diabetic neuropathy to LE. Psychiatric: Calm, cooperative, appropriate mood and affect. Discharge Plan Plan Patient Disposition: HOME (Self Care) Patient condition on transfer: Stable Care Plan Goals: * Follow up at [facility] for left foot wounds. [address] [facility]. Call [phone] to reschedule appointment as needed. * Wound care to left foot: shower daily, drying off well including between your toes. Swab dry wounds with betadine and allow to dry once a day. If wound start draining apply dry gauze and secure with gauze wrap. * Continue taking HYDRALAZINE 10 MG THREE TIMES DAILY for blood pressure control (NEW). Your PCP may have to adjust the dose for blood pressure optimization. * Follow up with primary MD for a Vascular consult to evaluate blood flow to your foot. * Please follow up with your PCP closely for better control of you blood sugar. Your A1c level at this admission is greater than 14. * Please return to the ED for any concerning or worsening symptoms Prescriptions/Referrals Prescriptions/Med Rec: New hydralazine 10 mg tablet 10 mg PO TID Qty: 90 0RF Continued insulin glargine [Basaglar KwikPen U-100 Insulin] 100 unit/mL (3 mL) insulin pen 60 unit SUBCUT QAM Patient Comments: INJECT 60 UNITS SUBCUTANEOUSLY TWICE A DAY Rx Instructions: per patient takes 30-50units BID depending on his sugar levels calcium acetate 667 mg Tablet 667 mg PO TID nifedipine 30 mg tablet extended release 24hr 30 mg PO BID Patient Comments: TAKE 2 TABLETS BY MOUTH EVERY DAY labetalol 200 mg tablet 200 mg PO BID insulin glargine [Basaglar KwikPen U-100 Insulin] 100 unit/mL (3 mL) Insulin Pen 40 unit SUBCUT HS PRN (Reason: Hyperglycemia) clonidine HCl 0.2 mg tablet 0.2 mg PO BID Qty: 20 0RF Rx Instructions: Take clonidine as needed for systolic blood pressures greater than 170/100. May take up to twice daily furosemide 40 mg tablet 40 mg PO DAILY Patient Comments: TAKE 1 TABLET BY MOUTH EVERY DAY mupirocin 2 % ointment 1 applic topical BID Qty: 22 0RF clonidine HCl 0.2 mg tablet 0.2 mg PO BID PRN (Reason: Blood pressure above 170/100) Qty: 10 0RF Rx Instructions: Take 1 tablet if blood pressures still elevated in the 170s/100s after you have taken your antihypertensive medications. Referrals: Reagan Sultana MD [Primary Care Provider, Family Practice] Patient/Caregiver Discharge Instructions Education Materials: Managing Type 2 Diabetes, Acute Kidney Failure Dc, Foot Care Diabetes Steps Print Language: Arabic Stand Alone Forms: [facility] Award Info., Patient Portal Info Letter Discharge Order Discharge Orders: Discharge (Routine); Ordered 07/01/25 Ordered By: Tito Poe Quality Discharge Quality Measures VTE prophylaxis
--- NOTE | 2025-07-01 14:34 | PC.SS ---
Rounding Note: Plan is to d/c patient today.
--- NOTE | 2025-07-01 19:40 | ESPR_ITS ---
Documentation for date of: 07/01/25 Subjective Subjective Interval history: Mr. Aguilar is a 40-year-old gentleman with a longstanding history of type 2 diabetes mellitus, ESRD on HD (Saturday, , Saturday), hypertension, diabetic retinopathy, diabetic neuropathy, and status post left fistula placement who presented [facility] on 06/29/2025 for worsening shortness of breath and cough. Patient was admitted for management of hypertensive emergency with volume overload. Patient was seen by me at the dialysis unit and noted to have significant fluid overload. Patient admits to drinking fluid due to dry mouth. He has been noted on 10 pounds over from his dry weight. Patient moved recently from [facility]. Blood pressure in the ED was significantly elevated. Nephrology consultation requested the need for emergency dialysis. Patient currently seen on dialysis. Initial vitals significant for blood pressure of 230/104, respiratory rate 24, and O2 saturation 95% on 14 L oxy mask, patient would eventually have a temperature of 101 ?F Initial labs significant for WBC 15.7, hemoglobin 12.0, sodium of 130, chloride of 89, BUN of 35, creatinine of 6.4, glucose of 533, lactic acid of 3.0, total bilirubin of 1.8, alkaline phosphatase of 297, and BNP over 3280 Chest x-ray on 06/29 shows mild CHF with possible pneumonia in the lung bases Patient was placed on BiPAP given findings suggestive of fluid overload, which improved respirations and work of breathing Ultrasound of gallbladder on 06/29 shows mild gallbladder wall thickening without calculi or sludge with mild hepatomegaly and probable fatty liver infiltration In ED, patient was given topical nitroglycerin, 1 g of acetaminophen p.o., Zosyn 3.375 g, hydralazine 20 mg, insulin lispro 5 units, and had a dialysis session that removed about 4 L of fluid 06/30/2025 patient currently seen on dialysis. Will be an extra session due to his fluid overload. Will adjust dry weight at the dialysis unit. Labs and medications reviewed. 07/01/2025 patient currently seen in medical floor. Resting comfortably. Did receive 2 dialysis treatments and is feeling much better. No chest pain, shortness of breath. Review of Systems Review of Systems Narrative Review of Systems: CONSTITUTIONAL: Patient complaining of weight gain HEENT: Patient has significant visual problems from diabetic retinopathy CARDIOVASCULAR: Patient denies any chest pain, shortness of breath, swelling in the lower extremities. PULMONARY: Patient denies shortness of breath GASTROINTESTINAL: Patient denies any abdominal pain, constipation, nausea, vomiting, diarrhea. GENITOURINARY: Patient denies any urinary symptoms of burning or frequency or hematuria, denies any form in the urine. SKIN: wound in the left great toe. Right IJ dialysis catheter noted. + AVf MUSCULOSKELETAL: Pain in the left foot and toe NEUROLOGICAL: Denies any neurological problems of strokes, seizures or confusion. Denies any memory problems. Exam Vital Signs Temp Pulse Resp BP Pulse Ox O2 Del Method O2 Flow Rate 36.2 C 81 8 L 159/83 H 99 Nasal Cannula 1 07/01/25 08:00 07/01/25 08:12 07/01/25 08:00 07/01/25 08:12 07/01/25 08:00 07/01/25 08:00 07/01/25 08:00 FiO2 35 06/30/25 00:18 Narrative Exam GENERAL APPEARANCE: Patient in floor NECK: Neck supple, no JVD or bruit CARDIOVASCULAR: Heart regular, no murmurs LUNGS/CHEST: Chest clear to auscultation. No rales, rhonchi, wheezing ABDOMEN: Soft, nontender, nondistended. No masses. Normal bowel sounds. EXTREMITIES: No edema, clubbing or cyanosis. SKIN: Wound noted in the left foot. Right IJ dialysis catheter noted. Exit site clean. MUSCULOSKELETAL: In bed NEUROLOGICAL : No neurological deficits, alert and awake Objective Labs 07/01/25 05:15 07/01/25 05:15 Labs: Laboratory Results - last 24 hr 07/01/25 05:15 WBC 9.6 D RBC 4.25 L Hgb 11.4 L Hct 35.1 L MCV 83 MCH 26.8 MCHC 32.5 RDW Std Deviation 48.2 H Plt Count 280 Neut % (Auto) 67 Lymph % (Auto) 22 [place] % (Auto) 8 Eos % (Auto) 2 Baso % (Auto) 1 Neut # (Auto) 6.5 Lymph # (Auto) 2.1 [place] # (Auto) 0.8 Eos # (Auto) 0.2 Baso # (Auto) 0.1 Immature Gran # (Auto) 0.02 H Absolute Nucleated RBC 0.00 Immature Gran % 0 Nucleated RBC % 0 Sodium 138 Potassium 3.6 D Chloride 94 L Carbon Dioxide 28.3 Anion Gap 16 BUN 29 H Creatinine 4.7 H* Estim Creat Clear Calc 21.1 L eGFR 15 L BUN/Creatinine Ratio 6 L Glucose 211 H Calculated Osmolality 287 Calcium 9.3 Corrected Calcium 9.3 Phosphorus 3.7 Magnesium 2.1 Total Bilirubin 0.9 D AST 15 ALT 9 L Alkaline Phosphatase 178 H D Total Protein 8.0 Albumin 4.2 Globulin 3.8 H Albumin/Globulin Ratio 1.1 L Assessment & Plan Additional Assessment & Plan Additional Plan: Mr. Aguilar is a 38-year-old gentleman with past medical history of insulin dependent diabetes, hypertension, and ESRD from diabetic nephropathy presented to the hospital for shortness of breath, hypertensive emergency. #ESRD/diabetic nephropathy Patient had 2 dialysis sessions and dry weight adjusted. # Fluid overload with HD treatments-shortness of breath better # Hypertension resume home medications Adjust BP meds Add hydralazine # insulin dependent type 2 diabetes -Continue basal and sliding scale insulin -Continue diabetes education and close outpatient follow up for DM control # Anemia Patient will receive Epogen with the dialysis. Thank you Dr. Gerardo for allowing me to participate in the care of Mr. Brooks
== END 2025-07-01 11:15 | disposition home or self-care (01) | DRG 425 ==
LOC: SERX 22:40 → SERHOLD 06-30 02:43 → S2SX 06-30 04:52 → S3NX 06-30 18:53
PROVIDERS: Registered Nurse General Practice; Admitting Provider Student in an Organized Health Care Education/Training Program; Emergency Provider Family Medicine; PCP Family Medicine; Visit Provider Student in an Organized Health Care Education/Training Program
DX: E87.70 Fluid overload, unspecified (principal); J96.01 Acute respiratory failure with hypoxia; I16.1 Hypertensive emergency; I13.2 Hypertensive heart and chronic kidney disease with heart failure and with stage 5 chronic kidney disease, or end stage renal disease; E87.20 Acidosis, unspecified; D63.1 Anemia in chronic kidney disease; N18.6 End stage renal disease; E11.319 Type 2 diabetes mellitus with unspecified diabetic retinopathy without macular edema; E11.22 Type 2 diabetes mellitus with diabetic chronic kidney disease; E11.40 Type 2 diabetes mellitus with diabetic neuropathy, unspecified; E11.65 Type 2 diabetes mellitus with hyperglycemia; E11.621 Type 2 diabetes mellitus with foot ulcer; E87.1 Hypo-osmolality and hyponatremia; K76.0 Fatty (change of) liver, not elsewhere classified; E87.8 Other disorders of electrolyte and fluid balance, not elsewhere classified; Z99.2 Dependence on renal dialysis; Z79.4 Long term (current) use of insulin; Z79.899 Other long term (current) drug therapy; R10.11 Right upper quadrant pain
CPT/HCPCS: 36415; 71045; 76705; 80053; 80307; 81001; 83036; 83605; 83615; 83690; 83735; 83880; 84100; 84145; 84484; 85025; 85610; 85730; 87040; 87081; 87502; 87635; 90935; 93005; 93225; 93306; 94660; 96365; 96375; 99291; 99292; J0360; J1644; J1815; J1920; J2543; J3490; Q5105; A9270; G0257